=== PATIENT | male | born 1975 | race Caucasian/White ===

== ENCOUNTER 2018-05-30 13:30 | Emergency (ER) | payer MEDICAID, SELFPAY ==
[2018-05-30] VITALS (40 sets, daily range): BP systolic 102–137; BP diastolic 72–107; PULSE 70–101; RESP 9–65; TEMP 36.9–37; O2SAT 94–97
[2018-05-30 14:09] LABS: Abs Immature Grans 0.02 k/cumm (0.0-0.09); Absolute Basophil Count 0.01 k/cumm (0.0-0.2); Absolute Eosinophil Count 0.08 k/cumm (0.0-0.7); Absolute Lymphocyte Count 2.42 k/cumm (1.2-3.4); Absolute Monocyte Count 0.89 k/cumm (0.11-0.7); Absolute Neutrophil Count 6.55 k/cumm (1.2-6.7); Basophils % 0.1; Eosinophils % 0.8; HCT 42.9 % (40.0-50.0); HGB 14.9 g/dL (13.5-17.5); Immature Grans % 0.2; Lymphocytes % 24.3; Mean Corp. HGB Concentration 34.7 g/dL (32.0-36.0); Mean Corpuscular Volume 92.3 fL (80-95); Mean Platelet Volume 10.3 fL (8.0-11.0); Monocytes % 8.9; Neutrophils % 65.7; Platelet Count 197 x1000/uL (130-400); RBC 4.65 m/cumm (4.50-6.00); RBC Distribution Width 12.6 % (11.8-14.1); White Blood Cell Count 9.97 k/cumm (4.4-10.8)
--- NOTE | 2018-05-30 14:20 | DI.RAD_ITS ---
SYMPTOM/DIAGNOSIS: CHEST PAIN, R/O ACUTE DISEASE PA AND LATERAL CHEST: 05/30/18 The heart is normal in size. The lungs are clear. The mediastinal structures and pleura appear intact. CONCLUSION: Normal chest.
[2018-05-30 14:26] LABS: ALT 48 U/L (12-78); AST 25 U/L (15-37); Albumin 4.1 g/dL (3.4-5.0); Alkaline Phosphatase 74 U/L (46-116); Anion Gap 9.4 mmol/L (3-11); BUN 16 mg/dL (7-18); Bilirubin, Direct 0.12 mg/dL (0.00-0.20); Bilirubin, Total 0.5 mg/dL (0.2-1.0); CO2 28.6 mmol/L (21.0-32.0); CREATININE 0.99 mg/dL (0.70-1.30); Calcium 9.2 mg/dL (8.5-10.1); Chloride 101 mmol/L (98-107); Glucose 105 mg/dL (70-100); Lipase 89 U/L (73-393); Magnesium 1.9 mg/dL (1.8-2.4); Sodium 139 mmol/L (136-145); Total Protein 8.3 g/dL (6.4-8.2); Troponin I < 0.02 ng/mL (0.00-0.06)
--- NOTE | 2018-05-30 14:51 | DI.VRAD_ITS ---
EXAM: XR Chest, 2 Views CLINICAL HISTORY: 43 years old, male; Pain; Chest pain; Type not specified TECHNIQUE: Frontal and lateral views of the chest. COMPARISON: No relevant prior studies available. FINDINGS: The lung wolfe are clear bilaterally. No focal pulmonary consolidation is present. The cardiac silhouette is within normal limits. The costophrenic angles are sharp. The bony structures appear unremarkable. IMPRESSION: No evidence of acute cardiopulmonary disease. Dictated and Authenticated by: Tereso Salamanca MD. Ordering:MANASA MCDONOUGH MD
[2018-05-30] MEDS: FAMOTIDINE 20 MG/50 ML BAG 100 MG IVPB (15:03)
[2018-05-30] MEDS: Normal Saline 1,000 ML 1000 ML IV (15:03)
--- NOTE | 2018-05-30 18:16 | ED.GENADUL_ITS ---
Discharge Plan Disposition Patient Disposition: HOME Condition: Improving Discharge Details Chief Complaint: Chest Pain Clinical Impression: Abdominal pain, epigastric Primary Care Provider: Valencia Avina ED Provider: Libby Pleitez Home Meds and New Rx's Prescriptions: Continue pantoprazole 20 MG tablet,delayed release (DR/EC) 20 mg PO DAILY Qty: 90 RF: 3 pravastatin 20 MG tablet 20 mg PO DAILY Qty: 90 RF: 2 meclizine 25 MG tablet 25 - 50 mg PO DAILY PRNQty: 30 RF: 2 Citalopram Hydrobromide [Citalopram HBr] 40 MG tablet 40 mg PO DAILY Qty: 90 RF: 3 triamcinolone acetonide 15 GM cream 15 gm Topical BID PRNQty: 1 RF: 2 ibuprofen 600 MG tablet 600 mg PO Q6H PRN (Reason: Pain) Qty: 20 RF: 0 Discharge Instructions Instructions: Epigastric Pain (ED) Additional Instructions: Take your protonix regularly as directed. Avoid excessive motrin or other NSAID use. Call your primary care doctor to schedule follow-up appointment for reevaluation and for referral to GI or surgery for endoscopy if your symptoms persist or worsen. Return immediately to the emergency department any worsening or new concerning symptoms. Discharge Data Discharge Date/Time-TO BE ENTERED AT DEPARTURE: 05/30/18 19:02 Discharge Physician: Libby Pleitez Medical Decision Making 43-year-old male with history of GERD presents with epigastric pain for the past 3 days. Worse with eating. Denies chest pain, shortness breath, dizziness , nausea or vomiting. Vitals within normal limits. EKG notes a rate of 85, sinus, incomplete right bundle branch block, no acute ST elevation or depression, QTc 4 2, QRS 116. No old EKG to compare. Lungs clear to auscultation. Patient appears nontoxic in no acute distress. He had mild tenderness palpation in the epigastric region. He denies alcohol or drug use so doubt pancreatitis. He has no chest pain, shortness of breath, nausea, vomiting or dizziness and pain is worse with eating, so appears more consistent with GI etiology rather than cardiac. Considering patient's age, will do a cardiac workup, chest x-ray and give a dose of Pepcid and GI cocktail and reassess. 1700 --patient feels much better. Patient states he feels hungry and would like to drink and eat. Labs reviewed and unremarkable. White blood cell count 9.97. Hemoglobin 14.9. Troponin negative. Lipase 89. Chest x-ray negative. Second troponin done and pending. 1844 --second troponin negative. Patient states feels good and is requesting to go home. Discussed with patient and his symptoms could be GERD, gastritis, peptic ulcer disease, abdominal muscle wall strain. Patient was instructed to drink plenty of fluids, take his Protonix regularly, avoid excessive NSAID use. He is instructed to follow with his primary care doctor for reevaluation and for referral to surgery for endoscopy if symptoms persist or worsen. HPI General Mode of arrival: ambulatory . Date/Time Provider Initiated Documentation: 05/30/18 13:47 . Limitations to Documentation: no limitations . Information obtained by: patient . HPI Narrative: 43-year-old male with a history of GERD on Protonix who presents for epigastric pain for the past 3 days. States the pain awoke him from sleep and feels like a gas bubble. States the pain feels steady, pressure-like, in the epigastric region, without radiation, worse with eating and better with sitting up. States the pain is currently 7/10. He takes Protonix regularly for his GERD but has not taken it for the past 3 days. He denies fever, cough, shortness breath, dizziness, nausea, vomiting, recent travel, recent surgery or leg pain. He denies excessive or prolonged NSAID use. Past medical history: Anxiety, depression, GERD, hyperlipidemia, chronic back pain Surgical history: Hernia, vasectomy Social history: Quit tobacco, denies alcohol or drug use Medications: Celexa, meclizine, Protonix, Motrin as needed Allergies: None PCP: Dr. Avina Related Data Home Medications Medication Instructions Recorded Confirmed ibuprofen 600 mg PO Q6H PRN #20 tab 04/02/17 05/30/18 pantoprazole 20 mg PO DAILY #90 tab-cap 08/28/17 05/30/18 meclizine 25 - 50 mg PO DAILY PRN #30 tab-cap 09/08/17 05/30/18 pravastatin 20 mg PO DAILY #90 tab-cap 09/08/17 05/30/18 triamcinolone acetonide 15 gm TOPICAL BID PRN #1 script 01/28/18 05/30/18 Previous Rx's Medication Instructions Recorded ibuprofen 600 mg PO Q6H PRN #20 tab 04/02/17 pantoprazole 20 mg PO DAILY #90 tab-cap 08/28/17 pravastatin 20 mg PO DAILY #90 tab-cap 09/08/17 Allergies Allergy/AdvReac Type Severity Reaction Status Date / Time No Known Drug Allergies Allergy Unverified 05/30/18 13:38 General Stated Complaint: Chest Pain DARI: 3 Review of Systems Review of Systems All systems reviewed & are unremarkable except as noted in HPI and below Constitutional Denies chills, Denies excessive sweating, Denies fatigue, Denies fever(s), Denies weakness and Denies weight loss Eyes Reports system reviewed and no additional complaints, except as docu and Denies blurry vision ENT Denies vertigo, Denies dizziness, Denies otalgia, Denies nasal congestion, Denies sore throat and Denies throat swelling Cardiovascular Denies chest pain, Denies syncope, Denies rapid heart rate and Denies dyspnea Respiratory Denies dyspnea Gastrointestinal Reports abdominal pain (Epigastric), Denies diarrhea and Denies vomiting Genitourinary Denies hematuria, Denies dysuria and Denies flank pain Musculoskeletal Denies back pain and Denies joint swelling Integumentary/Breasts Denies lesions and Denies rash Neurologic Denies behavioral changes, Denies confusion, Denies vertigo, Denies dizziness, Denies syncope and Denies weakness Psychiatric Denies behavioral changes, Denies confusion and Denies depression Endocrine Denies excessive sweating and Denies fatigue Hematologic/Lymphatic Denies easy bruising and Denies lymphadenopathy Allergic/Immunologic Denies throat swelling PFSH Family History Father Diabetes Essential hypertension Mother Essential hypertension Hyperlipidemia Medical History Depression Fatty liver Heart burn Umbilical hernia Social History Smoking/Tobacco Use Status: Former Tobacco Use Surgical History Vasectomy repair of incarcerated umbilical hernia (04/16/17) Exam Const General: cooperative and healthy appearing Orientation: alert and awake HENMT Head: normal to inspection Ears: hearing grossly normal bilaterally and external ears normal General nose exam: external nose normal Face and sinus: normal facial exam Mouth: oral mucosae normal Teeth and gingiva: dentition normal Throat: posterior oropharynx normal Eyes General: appearance normal, both eyes and all related structures Eyelids: eyelids normal Pupils: PERRL EOM: EOM intact bilaterally Neck Neck: normal visual inspection Lymphatic: no lymphadenopathy noted Chest Chest: normal inspection of the chest Resp Effort & Inspection: normal respiratory effort and able to speak in complete sentences Auscultation: clear to auscultation bilaterally Cardio Rate: regular rate Rhythm: regular rhythm GI Inspection: normal to inspection Palpation: soft, not firm, no guarding, no hepatosplenomegaly, no masses and tender (Mild to moderate epigastric region) Auscultation: normal bowel sounds Back/Spine/Pelvis Back: no CVA tenderness Skin General skin exam: no rashes or lesions noted Neuro General: alert and awake Cognition: normal cognition Speech: speech normal Gait: normal gait Motor: muscle tone normal throughout Sensory Exam: no sensory deficits noted Extrem General: normal to inspection, full ROM and normal capillary refill Psych Appearance: grossly normal Mental Status: mental status grossly normal Speech and Movement: speech and movement normal Affect: normal affect Thought Process: normal Course Vital Signs Temperature 98.6 F 05/30/18 13:35 Pulse 73 05/30/18 13:35 Respiratory Rate 18 05/30/18 13:35 Blood Pressure 137/83 05/30/18 13:35 Pulse Oximetry 95 05/30/18 13:35 Temperature 98.6 F 05/30/18 13:35 Temperature Source Temporal Artery Scan 05/30/18 13:35 Pulse 70 05/30/18 17:31 Pulse 76 05/30/18 18:00 Respiratory Rate 23 05/30/18 18:00 Respiratory Effort 05/30/18 14:06 Respiratory Depth Normal 05/30/18 14:06 Respiratory Pattern Normal 05/30/18 14:06 Blood Pressure 113/81 05/30/18 17:31 Blood Pressure Mean 88 05/30/18 17:31 Pulse Oximetry 96 05/30/18 18:00 Oxygen Delivery Method Room Air 05/30/18 13:35 Oxygen Flow Rate 0 05/30/18 13:35 Pain Level 7 05/30/18 13:35 Lab/Test Results Lab/Test Results: Laboratory Tests Range/Units 05/30/18 05/30/18 14:00 14:00 WBC (4.4-10.8) k/cumm 9.97 RBC (4.50-6.00) m/cumm 4.65 Hgb (13.5-17.5) g/dL 14.9 Hct (40.0-50.0) % 42.9 MCV (80-95) fL 92.3 MCH (27.0-33.0) pg 32.0 MCHC (32.0-36.0) g/dL 34.7 RDW (11.8-14.1) % 12.6 Plt Count (130-400) x1000/uL 197 MPV (8.0-11.0) fL 10.3 Immature Gran % 0.2 Neutrophils % 65.7 Lymphocytes % 24.3 Monocytes % 8.9 Eosinophils % 0.8 Basophils % 0.1 Absolute Neutrophils (1.2-6.7) k/cumm 6.55 Absolute Lymphocytes (1.2-3.4) k/cumm 2.42 Absolute Monocytes (0.11-0.7) k/cumm 0.89 H Absolute Eosinophils (0.0-0.7) k/cumm 0.08 Absolute Basophils (0.0-0.2) k/cumm 0.01 Sodium (136-145) mmol/L 139 Potassium (3.5-5.1) mmol/L 4.0 Chloride (98-107) mmol/L 101 Carbon Dioxide (21.0-32.0) mmol/L 28.6 Anion Gap (3-11) mmol/L 9.4 BUN (7-18) mg/dL 16 Creatinine (0.70-1.30) mg/dL 0.99 Estimated GFR/1.73 m2 (mL/min/1.73m2) >= 60.00 Glucose (70-100) mg/dL 105 H Calcium (8.5-10.1) mg/dL 9.2 Magnesium (1.8-2.4) mg/dL 1.9 Total Bilirubin (0.2-1.0) mg/dL 0.5 Conjugated Bilirubin (0.00-0.20) mg/dL 0.12 AST (15-37) U/L 25 ALT (12-78) U/L 48 Alkaline Phosphatase (46-116) U/L 74 Troponin I (0.00-0.06) ng/mL < 0.02 Total Protein (6.4-8.2) g/dL 8.3 H Albumin (3.4-5.0) g/dL 4.1 Lipase (73-393) U/L 89
[2018-05-30 18:27] LABS: Troponin I < 0.02 ng/mL (0.00-0.06)
== END 2018-05-30 19:02 | disposition home or self-care (01) ==
PROVIDERS: Emergency Provider Physician Assistant; PCP Family Medicine
DX: R10.13 Epigastric pain (principal)
CPT/HCPCS: 36415; 80053; 80076; 83690; 93005; 96361; 96365; 99285; 71046; 83735; 84484; 85025; 93010

== ENCOUNTER 2018-06-01 15:46 | Emergency (ER) | payer MEDICAID, SELFPAY ==
[2018-06-01 15:53] VITALS: BP 130/86; PULSE 100; RESP 20; TEMP 37; O2SAT 95
--- NOTE | 2018-06-01 16:02 | DI.US_ITS ---
SYMPTOM/DIAGNOSIS: RUQ PAIN, TENDERNESS ABDOMINAL ULTRASOUND: 06/01 Hepatic parenchyma appears heterogeneous and echogenic consistent with hepatic steatosis. There is cholelithiasis with multiple small gallstones. No gallbladder wall thickening or pericholecystic fluid collection seen. Common hepatic duct is of normal diameter at 4 mm. Spleen is unremarkable in appearance. Pancreas appears intact as visualized. The kidneys appear normal except for an incidental 25 mm mid pole left renal cyst. Abdominal aorta and IVC are of normal diameter. CONCLUSION: Cholelithiasis, presumed hepatic steatosis.
--- NOTE | 2018-06-01 16:06 | W.ED.GENAD ---
Discharge Plan Disposition Patient Disposition: HOME Condition: Good Discharge Details Chief Complaint: Abd Prob Clinical Impression: Abdominal pain, RUQ Primary Care Provider: Valencia Avina ED Provider: Sen Contreras Home Meds and New Rx's Prescriptions: New ibuprofen [Motrin IB] 200 MG tablet 800 mg PO Q6H 5 Days Qty: 80 RF: 0 hydrocodone-acetaminophen [Lenora] 7.5-325 mg tablet 1 tab PO Q6H PRN (Reason: pain) Qty: 4 RF: 0 No Action pantoprazole 20 MG tablet,delayed release (DR/EC) 20 mg PO DAILY Qty: 90 RF: 3 pravastatin 20 MG tablet 20 mg PO DAILY Qty: 90 RF: 2 meclizine 25 MG tablet 25 - 50 mg PO DAILY PRNQty: 30 RF: 2 Citalopram Hydrobromide [Citalopram HBr] 40 MG tablet 40 mg PO DAILY Qty: 90 RF: 3 triamcinolone acetonide 15 GM cream 15 gm Topical BID PRNQty: 1 RF: 2 ibuprofen 600 MG tablet 600 mg PO Q6H PRN (Reason: Pain) Qty: 20 RF: 0 Discharge Instructions Instructions: Gallstones (ED) Additional Instructions: Please call Dr. Heller's office tomorrow morning at 8 AM. [phone] specifically state that you are in the ER, have multiple gallstones, and that both Dr. Heller and Dr. Contreras said that you are supposed to follow-up this week, particularly Friday afternoon. Please take your medications as directed. Please only take the Lenora as needed. Avoid any fatty foods, or meat products. if you notice any worsening of your symptoms, or any new symptoms such as vomiting, diarrhea, fever, chills, shortness of breath, chest pain, numbness, weakness, or fainting , please return immediately to the emergency department for reevaluation. Please follow up with your primary care provider as soon as possible for reassessment and reevaluation. As always, it was a pleasure participating in your medical care today. Referrals: Jaclyn Heller MD [ [facility] STAFF PHYSICIAN] - Medical Decision Making This is a 43-year-old male who presents for epigastric and right upper quadrant pain. He had a thorough workup performed 3 days ago with a negative x-ray, negative serial troponins, negative EKG and laboratory workup. His symptoms have not improved since then. He has not eaten much. His pain is sharp, achy, in nature with associated decreased appetite nausea but no vomiting. No red flags of blood in his stools. Physical exam demonstrates reproducible right upper quadrant tenderness, concerning for potential gallbladder or pancreatic pathology. We will get an ultrasound to rule out any acute process. I feel that this is unlikely to be cardiac in nature especially with his negative workup 72 hours ago. We will rehydrate, control his pain, treat for potential reflux as well. 5:15 PM Patient's laboratory workup has returned normal. AST, ALT, alk phos, bilirubin have all returned normal. The patient's pain is notably improved with Toradol. Ultrasound report demonstrates multiple stones, and per the assistant front end manager they were too numerous to count however there are no other acute abnormalities. No pericholecystic fluid, no gallbladder wall thickening, no ductal dilatation, and a negative sonographic Livingston sign. With normal laboratory workup, no acute findings and pain that is notably improved I do not feel any need for emergent cholecystectomy. I did contact Dr. Gutierrez who is the surgeon on-call, and discussed the case with her, she does feel that the patient can follow-up tomorrow with her in the clinic. I do think that this is reasonable. We discussed red flags which to return with the patient, as well as the appropriate diet, and ibuprofen for home use. I have extensively reviewed the treatment plan and discharge instructions with the patient. I have addressed all patient concerns at this time. The patient was made aware of what symptoms to monitor for that would warrant a return to the emergency department. Discussed the plan with the patient, they demonstrate verbal understanding and agreement with our assessment and plan at this time. HPI General Date/Time Provider Initiated Documentation: 06/01/18 15:54. HPI Narrative: This is a 43-year-old male with a past medical history of an umbilical hernia that was surgically repaired, some depression and mild anxiety, as well as some reflux who presents today for evaluation of epigastric and right upper quadrant pain. He states that he was here 3 days ago, at that time he had a negative chest x-ray, negative laboratory workup, no evidence of any cardiac etiology with a normal EKG and troponin x2. He was given Mylanta, however denies any improvement of his symptoms. He was discharged home with antacids, and recommendation for close follow-up for future endoscopy. It was felt that reflux was the main cause of his symptoms. Since then he states that his symptoms have not improved. His pain is sharp and achy in nature. It is in his epigastric region and radiates to his right upper quadrant. He does admit to a pressure-like sensation, that is present in this area. There is also some mild achiness in his chest. He denies any significant pleuritic chest pain, radiation to the arms or shoulders, cough, hemoptysis, vomiting, or diarrhea. He states that his appetite has been notably decreased, and has had some associated nausea but no vomiting. He denies any diarrhea, hematochezia, melena, acholic stool. Denies any other complaints at this time. He denies any previous cardiac history. He has no first-degree relatives with any cardiac history. He does admit to occasionally eating some spicy and citrus foods, however none recently. He has no other complaints at this time. He denies IV or illicit drug use, he does not currently smoke or drink alcohol per Related Data Home Medications Medication Instructions Recorded Confirmed ibuprofen 600 mg PO Q6H PRN #20 tab 04/02/17 05/30/18 pantoprazole 20 mg PO DAILY #90 tab-cap 08/28/17 05/30/18 meclizine 25 - 50 mg PO DAILY PRN #30 tab-cap 09/08/17 05/30/18 pravastatin 20 mg PO DAILY #90 tab-cap 09/08/17 05/30/18 triamcinolone acetonide 15 gm TOPICAL BID PRN #1 script 01/28/18 05/30/18 hydrocodone-acetaminophen [Lenora] 1 tab PO Q6H PRN #4 tab 06/01/18 ibuprofen [Motrin Ib] 800 mg PO Q6H 5 Days #80 tab 06/01/18 Previous Rx's Medication Instructions Recorded ibuprofen 600 mg PO Q6H PRN #20 tab 04/02/17 pantoprazole 20 mg PO DAILY #90 tab-cap 08/28/17 pravastatin 20 mg PO DAILY #90 tab-cap 09/08/17 hydrocodone-acetaminophen [Lenora] 1 tab PO Q6H PRN #4 tab 06/01/18 ibuprofen [Motrin Ib] 800 mg PO Q6H 5 Days #80 tab 06/01/18 Allergies Allergy/AdvReac Type Severity Reaction Status Date / Time No Known Drug Allergies Allergy Unverified 05/30/18 13:38 General Stated Complaint: Abd Prob DARI: 3 Review of Systems Review of Systems All systems reviewed & are unremarkable except as noted in HPI and below Exam Narrative Exam Narrative: 1.Const: Well-nourished, Well-developed, appearing stated age 2.Eyes: PERRL, no conjunctival injection, and symmetrical lids. 3.ENT: Atraumatic external nose and ears. dry MM. Neck: Symmetric, trachea midline, No thyromegaly. 4.CVS: +S1/S2, No murmurs or gallops. Peripheral pulses 2+ and equal in all extremities. Brisk capillary refill in all extremities. 5.RESP: Unlabored respiratory effort. Clear to auscultation bilaterally. No wheezes rales or rhonchi 6.GI: Soft,Nondistended, No hepatosplenomegaly. No guarding or rebound. Mild tenderness in the right upper quadrant in the epigastric region. No guarding or rebound. Questionable positive Livingston sign. No reproducible chest pain. No pain at McBurney's point. 7.MSK: Normocephalic/Atraumatic, Extremities w/o deformity or ttp No cyanosis or clubbing, Normal movement of all extremities 8.Skin: Warm, Dry. No rashes or lesions. No scleral icterus or jaundice 9.Neuro: caterer helper II-XII grossly intact. Sensation grossly intact, no focal neurologic deficits. 10.Psych: (AAO) x3. Appropriate mood and affect Course Vital Signs Temperature 37.0 C 06/01/18 15:53 Pulse 100 H 06/01/18 15:53 Respiratory Rate 20 06/01/18 15:53 Blood Pressure 130/86 06/01/18 15:53 Pulse Oximetry 95 06/01/18 15:53 Temperature 37.0 C 06/01/18 15:53 Temperature Source Temporal Artery Scan 06/01/18 15:53 Pulse 100 H 06/01/18 15:53 Respiratory Rate 20 06/01/18 15:53 Respiratory Effort 06/01/18 15:57 Blood Pressure 130/86 06/01/18 15:53 Blood Pressure Position Sitting 06/01/18 15:53 Pulse Oximetry 95 06/01/18 15:53 Oxygen Delivery Method Room Air 06/01/18 15:53 Oxygen Flow Rate 0 06/01/18 15:53 Pain Level 7 06/01/18 15:53
--- NOTE | 2018-06-01 16:12 | ED.GENADUL_ITS ---
Discharge Plan Disposition Patient Disposition: HOME Condition: Good Discharge Details Chief Complaint: Abd Prob Clinical Impression: Abdominal pain, RUQ Primary Care Provider: Valencia Avina ED Provider: Sen Contreras Home Meds and New Rx's Prescriptions: New ibuprofen [Motrin IB] 200 MG tablet 800 mg PO Q6H 5 Days Qty: 80 RF: 0 hydrocodone-acetaminophen [[place]] 7.5-325 mg tablet 1 tab PO Q6H PRN (Reason: pain) Qty: 4 RF: 0 No Action pantoprazole 20 MG tablet,delayed release (DR/EC) 20 mg PO DAILY Qty: 90 RF: 3 pravastatin 20 MG tablet 20 mg PO DAILY Qty: 90 RF: 2 meclizine 25 MG tablet 25 - 50 mg PO DAILY PRNQty: 30 RF: 2 Citalopram Hydrobromide [Citalopram HBr] 40 MG tablet 40 mg PO DAILY Qty: 90 RF: 3 triamcinolone acetonide 15 GM cream 15 gm Topical BID PRNQty: 1 RF: 2 ibuprofen 600 MG tablet 600 mg PO Q6H PRN (Reason: Pain) Qty: 20 RF: 0 Discharge Instructions Instructions: Gallstones (ED) Additional Instructions: Please call Dr. Heller's office tomorrow morning at 8 AM. [phone] specifically state that you are in the ER, have multiple gallstones, and that both Dr. Heller and Dr. Contreras said that you are supposed to follow-up this week, particularly Friday afternoon. Please take your medications as directed. Please only take the [place] as needed. Avoid any fatty foods, or meat products. if you notice any worsening of your symptoms, or any new symptoms such as vomiting, diarrhea, fever, chills, shortness of breath, chest pain, numbness, weakness, or fainting , please return immediately to the emergency department for reevaluation. Please follow up with your primary care provider as soon as possible for reassessment and reevaluation. As always, it was a pleasure participating in your medical care today. Referrals: Jaclyn Heller MD [ [facility] ST[facility]FF PHYSICIAN] - Medical Decision Making This is a 43-year-old male who presents for epigastric and right upper quadrant pain. He had a thorough workup performed 3 days ago with a negative x-ray, negative serial troponins, negative EKG and laboratory workup. His symptoms have not improved since then. He has not eaten much. His pain is sharp, achy, in nature with associated decreased appetite nausea but no vomiting. No red flags of blood in his stools. Physical exam demonstrates reproducible right upper quadrant tenderness, concerning for potential gallbladder or pancreatic pathology. We will get an ultrasound to rule out any acute process. I feel that this is unlikely to be cardiac in nature especially with his negative workup 72 hours ago. We will rehydrate, control his pain, treat for potential reflux as well. 5:15 PM Patient's laboratory workup has returned normal. AST, ALT, alk phos, bilirubin have all returned normal. The patient's pain is notably improved with Toradol. Ultrasound report demonstrates multiple stones, and per the fire sprinkler inspector they were too numerous to count however there are no other acute abnormalities. No pericholecystic fluid, no gallbladder wall thickening, no ductal dilatation , and a negative sonographic Livingston sign. With normal laboratory workup, no acute findings and pain that is notably improved I do not feel any need for emergent cholecystectomy. I did contact Dr. Gutierrez who is the surgeon on-call , and discussed the case with her, she does feel that the patient can follow-up tomorrow with her in the clinic. I do think that this is reasonable. We discussed red flags which to return with the patient, as well as the appropriate diet, and ibuprofen for home use. I have extensively reviewed the treatment plan and discharge instructions with the patient. I have addressed all patient concerns at this time. The patient was made aware of what symptoms to monitor for that would warrant a return to the emergency department. Discussed the plan with the patient, they demonstrate verbal understanding and agreement with our assessment and plan at this time. HPI General Date/Time Provider Initiated Documentation: 06/01/18 15:54 . HPI Narrative: This is a 43-year-old male with a past medical history of an umbilical hernia that was surgically repaired, some depression and mild anxiety, as well as some reflux who presents today for evaluation of epigastric and right upper quadrant pain. He states that he was here 3 days ago, at that time he had a negative chest x-ray, negative laboratory workup, no evidence of any cardiac etiology with a normal EKG and troponin x2. He was given Mylanta, however denies any improvement of his symptoms. He was discharged home with antacids, and recommendation for close follow-up for future endoscopy. It was felt that reflux was the main cause of his symptoms. Since then he states that his symptoms have not improved. His pain is sharp and achy in nature. It is in his epigastric region and radiates to his right upper quadrant. He does admit to a pressure-like sensation, that is present in this area. There is also some mild achiness in his chest. He denies any significant pleuritic chest pain, radiation to the arms or shoulders, cough, hemoptysis, vomiting, or diarrhea. He states that his appetite has been notably decreased, and has had some associated nausea but no vomiting. He denies any diarrhea, hematochezia, melena, acholic stool. Denies any other complaints at this time. He denies any previous cardiac history. He has no first-degree relatives with any cardiac history. He does admit to occasionally eating some spicy and citrus foods, however none recently. He has no other complaints at this time. He denies IV or illicit drug use, he does not currently smoke or drink alcohol per Related Data Home Medications Medication Instructions Recorded Confirmed ibuprofen 600 mg PO Q6H PRN #20 tab 04/02/17 05/30/18 pantoprazole 20 mg PO DAILY #90 tab-cap 08/28/17 05/30/18 meclizine 25 - 50 mg PO DAILY PRN #30 tab-cap 09/08/17 05/30/18 pravastatin 20 mg PO DAILY #90 tab-cap 09/08/17 05/30/18 triamcinolone acetonide 15 gm TOPICAL BID PRN #1 script 01/28/18 05/30/18 hydrocodone-acetaminophen [[place]] 1 tab PO Q6H PRN #4 tab 06/01/18 ibuprofen [Motrin Ib] 800 mg PO Q6H 5 Days #80 tab 06/01/18 Previous Rx's Medication Instructions Recorded ibuprofen 600 mg PO Q6H PRN #20 tab 04/02/17 pantoprazole 20 mg PO DAILY #90 tab-cap 08/28/17 pravastatin 20 mg PO DAILY #90 tab-cap 09/08/17 hydrocodone-acetaminophen [[place]] 1 tab PO Q6H PRN #4 tab 06/01/18 ibuprofen [Motrin Ib] 800 mg PO Q6H 5 Days #80 tab 06/01/18 Allergies Allergy/AdvReac Type Severity Reaction Status Date / Time No Known Drug Allergies Allergy Unverified 05/30/18 13:38 General Stated Complaint: Abd Prob DARI: 3 Review of Systems Review of Systems All systems reviewed & are unremarkable except as noted in HPI and below Exam Narrative Exam Narrative: 1.Const: Well-nourished, Well-developed, appearing stated age 2.Eyes: PERRL, no conjunctival injection, and symmetrical lids. 3.ENT: Atraumatic external nose and ears. dry MM. Neck: Symmetric, trachea midline, No thyromegaly. 4.CVS: +S1/S2, No murmurs or gallops. Peripheral pulses 2+ and equal in all extremities. Brisk capillary refill in all extremities. 5.RESP: Unlabored respiratory effort. Clear to auscultation bilaterally. No wheezes rales or rhonchi 6.GI: Soft,Nondistended, No hepatosplenomegaly. No guarding or rebound. Mild tenderness in the right upper quadrant in the epigastric region. No guarding or rebound. Questionable positive Livingston sign. No reproducible chest pain. No pain at McBurney's point. 7.MSK: Normocephalic/Atraumatic, Extremities w/o deformity or ttp No cyanosis or clubbing, Normal movement of all extremities 8.Skin: Warm, Dry. No rashes or lesions. No scleral icterus or jaundice 9.Neuro: manufacturing engineer paint II-XII grossly intact. Sensation grossly intact, no focal neurologic deficits. 10.Psych: (AAO) x3. Appropriate mood and affect Course Vital Signs Temperature 37.0 C 06/01/18 15:53 Pulse 100 H 06/01/18 15:53 Respiratory Rate 20 06/01/18 15:53 Blood Pressure 130/86 06/01/18 15:53 Pulse Oximetry 95 06/01/18 15:53 Temperature 37.0 C 06/01/18 15:53 Temperature Source Temporal Artery Scan 06/01/18 15:53 Pulse 100 H 06/01/18 15:53 Respiratory Rate 20 06/01/18 15:53 Respiratory Effort 06/01/18 15:57 Blood Pressure 130/86 06/01/18 15:53 Blood Pressure Position Sitting 06/01/18 15:53 Pulse Oximetry 95 06/01/18 15:53 Oxygen Delivery Method Room Air 06/01/18 15:53 Oxygen Flow Rate 0 06/01/18 15:53 Pain Level 7 06/01/18 15:53
[2018-06-01] MEDS: Ketorolac 30 MG/ML VIAL 15 MG IM (16:19)
[2018-06-01] MEDS: Ondansetron 4 MG/2 ML VIAL IVP (16:20)
[2018-06-01] MEDS: Normal Saline 1,000 ML 1000 ML IV (16:20)
[2018-06-01] MEDS: Pantoprazole 40 MG VIAL IVP (16:20)
[2018-06-01 16:26] LABS: Abs Immature Grans 0.01 k/cumm (0.0-0.09); Absolute Basophil Count 0.02 k/cumm (0.0-0.2); Absolute Eosinophil Count 0.06 k/cumm (0.0-0.7); Absolute Lymphocyte Count 2.46 k/cumm (1.2-3.4); Absolute Monocyte Count 1.03 k/cumm (0.11-0.7); Basophils % 0.2; Eosinophils % 0.5; HCT 42.9 % (40.0-50.0); Immature Grans % 0.1; Lymphocytes % 22.2; Mean Corpuscular Hemoglobin 32.3 pg (27.0-33.0); Mean Corpuscular Volume 92.3 fL (80-95); Mean Platelet Volume 10.5 fL (8.0-11.0); Monocytes % 9.3; Neutrophils % 67.7; Platelet Count 212 x1000/uL (130-400); RBC 4.65 m/cumm (4.50-6.00); RBC Distribution Width 12.9 % (11.8-14.1); White Blood Cell Count 11.06 k/cumm (4.4-10.8)
[2018-06-01 16:27] LABS: Absolute Neutrophil Count 7.49 k/cumm (1.2-6.7)
[2018-06-01 16:39] LABS: ALT 56 U/L (12-78); AST 24 U/L (15-37); Alkaline Phosphatase 82 U/L (46-116); Anion Gap 10.5 mmol/L (3-11); BUN 11 mg/dL (7-18); Bilirubin, Total 0.6 mg/dL (0.2-1.0); CO2 27.5 mmol/L (21.0-32.0); CREATININE 0.85 mg/dL (0.70-1.30); Calcium 9.1 mg/dL (8.5-10.1); Chloride 100 mmol/L (98-107); Glucose 103 mg/dL (70-100); Lipase 88 U/L (73-393); Potassium 3.8 mmol/L (3.5-5.1); Sodium 138 mmol/L (136-145); Total Protein 8.4 g/dL (6.4-8.2)
[2018-06-01 16:40] LABS: Troponin I < 0.02 ng/mL (0.00-0.06)
--- NOTE | 2018-06-01 17:12 | DI.VRAD_ITS ---
EXAM: US Abdomen Complete CLINICAL HISTORY: 43 years old, male; Pain; Abdominal pain; Acute TECHNIQUE: Real-time ultrasound of the abdomen (complete) with image documentation. COMPARISON: No relevant prior studies available. FINDINGS: Liver: The liver is echodense and poorly penetrated. Upper normal limits at 16.2 cm. Hepatopedal portal flow No intrahepatic bile duct dilation. Gallbladder: Distended gallbladder with multiple stones, none of the stones measure more than 1.5 cm. Gallbladder wall thickness is 2.4 mm which is normal. Negative Livingston Common bile duct: Unremarkable as visualized. No stones. No dilation. Pancreas: Partially obscured due to bowel gas Kidneys: 2.5 cm cortical cyst left mid renal pole. No stones. No hydronephrosis. Spleen: Unremarkable. No splenomegaly. Aorta: Unremarkable. No aneurysm. Inferior vena cava: Unremarkable. IMPRESSION: No acute findings. Distended gallbladder with stones but no wall thickening, pericholecystic fluid, Livingston's sign or biliary dilatation. Stable 2.5 cm simple left renal cortical cyst, as seen on CT of 04/02/17 Dictated and Authenticated by: Silke Mccarty MD. Ordering:YOSVANY MUNOZ MD
[2018-06-01] MEDS: MORPHine 10 MG/ML VIAL 4 MG IVP (17:25)
== END 2018-06-01 17:36 | disposition home or self-care (01) ==
PROVIDERS: Emergency Provider Student in an Organized Health Care Education/Training Program; PCP Family Medicine
DX: R93.2 Abnormal findings on diagnostic imaging of liver and biliary tract (principal); N28.1 Cyst of kidney, acquired
CPT/HCPCS: 36415; 80053; 83690; 96361; 96372; 96374; 96375; 99284; 76700; 84484; 85025; J1885; J2270; J2405

== ENCOUNTER 2018-06-03 13:56 | Observation (INO) | payer MEDICAID, SELFPAY ==
[2018-06-03] VITALS (15 sets, daily range): BP systolic 116–153; BP diastolic 71–89; PULSE 62–76; RESP 13–18; TEMP 36.6–36.9; O2SAT 94–97
--- NOTE | 2018-06-03 14:25 | ED.GENADUL_ITS ---
Discharge Plan Disposition Patient Disposition: [facility] INPATIENT Condition: Stable Discharge Details Chief Complaint: Abd Prob Clinical Impression: Biliary colic Reason For Visit: RECURRENT BILIARY COLIC Admit Date/Time: 06/03/18 15:29 Admit Provider: Roosevelt Gagnon Attending Provider: Rosoevelt Gagnon Primary Care Provider: Valencia Avina ED Provider: Libby Pleitez Discharge Data Discharge Date/Time-TO BE ENTERED AT DEPARTURE: 06/03/18 17:25 Medical Decision Making 43-year-old male with a history of GERD, anxiety, depression and recently diagnosed cholelithiasis 2 days ago who presents for persistent epigastric, right upper quadrant and left upper quadrant abdominal pain. Patient was seen here 2 days ago and had negative lab workup and an abdominal ultrasound which noted multiple gallstones. He had no signs of gallbladder wall thickening, pericholecystic fluid, negative Livingston sign and was referred to surgery. Patient states he has a follow-up appointment with surgery Friday morning at 9: 30 AM. Patient states he called surgery this morning due to persistent pain and was advised to come to the emergency department. As patient had ultrasound done 2 days ago, will hold on imaging at this time but repeat lab work. Patient last took [place] at 9:00 this morning. Will give a tab of 10 mg p.o. oxycodone. Will call surgery to discuss plan. Patient denies any chest pain or shortness of breath and states his pain has been stable and persistent in the epigastric region so I do not see any acute indication for cardiac workup at this time. 1430 --case discussed with Dr. Gagnon and he will come to the emergency department to evaluate patient. 1445 -- will take patient to the OR. Suspect possibly an obstructing gallstone. Would like 2 g of Cefotetan IV. HPI General Mode of arrival: ambulatory . Date/Time Provider Initiated Documentation: 06/03/18 13:59 . Limitations to Documentation: no limitations . Information obtained by: patient . HPI Narrative: Patient is a 43-year-old male who presents to the ER with complaint of constant sharp epigastric pain for the past week. Patient was seen here 4 days ago for chest epigastric pain and had negative workup and was discharged home. Ultrasound was not available at that time. Patient return to the ED 2 days ago and had negative lab workup and had an abdominal ultrasound which noted multiple gallstones but no evidence of acute cholecystitis. Patient was referred to follow-up with surgery whom he spoke with yesterday and has a follow-up appointment for Friday morning at 930. Patient has been drinking and eating Jell-O as recommended per surgery. Patient states he called surgery today due to persistent pain and was advised to come to the ER. Denies radiation of pain. Denies known fever, nausea, vomiting, chest pain, shortness of breath, urinary symptoms or diarrhea. Last bowel movement was 2 days ago. Past medical history: GERD, depression, anxiety, hyperlipidemia Surgical history: Umbilical hernia repair, vasectomy Social history: Former tobacco smoker. Denies alcohol or drugs. Medications: [place], Celexa, Protonix, pravastatin Allergies: None Related Data Home Medications Medication Instructions Recorded Confirmed pantoprazole 20 mg PO DAILY #90 tab-cap 08/28/17 06/03/18 meclizine 25 - 50 mg PO DAILY PRN #30 tab-cap 09/08/17 06/03/18 pravastatin 20 mg PO DAILY #90 tab-cap 09/08/17 06/03/18 triamcinolone acetonide 15 gm TOPICAL BID PRN #1 script 01/28/18 06/03/18 hydrocodone-acetaminophen [[place]] 1 tab PO Q6H PRN #4 tab 06/01/18 06/03/18 acetaminophen [Tylenol] 650 mg PO Q6H PRN PRN #30 tab 06/04/18 Previous Rx's Medication Instructions Recorded pantoprazole 20 mg PO DAILY #90 tab-cap 08/28/17 pravastatin 20 mg PO DAILY #90 tab-cap 09/08/17 hydrocodone-acetaminophen [[place]] 1 tab PO Q6H PRN #4 tab 06/01/18 acetaminophen [Tylenol] 650 mg PO Q6H PRN PRN #30 tab 06/04/18 Allergies Allergy/AdvReac Type Severity Reaction Status Date / Time No Known Drug Allergies Allergy Unverified 05/30/18 13:38 General Stated Complaint: Abd Prob DARI: 3 Review of Systems Review of Systems All systems reviewed & are unremarkable except as noted in HPI and below Constitutional Denies chills, Denies excessive sweating, Denies fatigue, Denies fever(s), Denies weakness and Denies weight loss Eyes Reports system reviewed and no additional complaints, except as docu and Denies blurry vision ENT Denies vertigo, Denies dizziness, Denies otalgia, Denies nasal congestion, Denies sore throat and Denies throat swelling Cardiovascular Denies chest pain, Denies syncope, Denies rapid heart rate and Denies dyspnea Respiratory Denies dyspnea Gastrointestinal Reports abdominal pain, Denies diarrhea, Denies nausea and Denies vomiting Genitourinary Denies hematuria, Denies dysuria and Denies flank pain Musculoskeletal Denies back pain and Denies joint swelling Integumentary/Breasts Denies lesions and Denies rash Neurologic Denies behavioral changes, Denies confusion, Denies vertigo, Denies dizziness, Denies syncope and Denies weakness Psychiatric Denies behavioral changes, Denies confusion and Denies depression Endocrine Denies excessive sweating and Denies fatigue Hematologic/Lymphatic Denies easy bruising and Denies lymphadenopathy Allergic/Immunologic Denies throat swelling Exam Const General: cooperative and healthy appearing Orientation: alert and awake HENMT Head: normal to inspection Ears: hearing grossly normal bilaterally and external ears normal General nose exam: external nose normal Face and sinus: normal facial exam Mouth: oral mucosae normal Eyes General: appearance normal, both eyes and all related structures Eyelids: eyelids normal EOM: EOM intact bilaterally Neck Neck: normal visual inspection Lymphatic: no lymphadenopathy noted Chest Chest: normal inspection of the chest Resp Effort & Inspection: normal respiratory effort and able to speak in complete sentences Auscultation: clear to auscultation bilaterally Cardio Rate: regular rate Rhythm: regular rhythm GI Inspection: normal to inspection Palpation: soft, not firm, no guarding, no hepatosplenomegaly, no masses and tender (Moderate tenderness to palpation in the epigastric, right upper quadrant and left upper quadrant) Auscultation: normal bowel sounds Skin General skin exam: no rashes or lesions noted Neuro General: alert and awake Cognition: normal cognition Speech: speech normal Gait: normal gait Motor: muscle tone normal throughout Extrem General: normal to inspection and full ROM Psych Appearance: grossly normal Mental Status: mental status grossly normal Speech and Movement: speech and movement normal Affect: normal affect Thought Process: normal Course Vital Signs Temperature 97.9 F 06/03/18 14:01 Pulse 76 06/03/18 14:01 Respiratory Rate 16 06/03/18 14:01 Blood Pressure 127/85 06/03/18 14:01 Pulse Oximetry 96 06/03/18 14:01 Temperature 97.9 F 06/03/18 14:01 Temperature Source Temporal Artery Scan 06/03/18 14:01 Pulse 76 06/03/18 14:01 Respiratory Rate 16 06/03/18 14:01 Respiratory Effort 06/03/18 14:05 Blood Pressure 127/85 06/03/18 14:01 Blood Pressure Position Sitting 06/03/18 14:01 Pulse Oximetry 96 06/03/18 14:01 Oxygen Delivery Method Room Air 06/03/18 14:01 Oxygen Flow Rate 0 06/03/18 14:01 Pain Level 8 06/03/18 14:01
[2018-06-03 14:26] LABS: Abs Immature Grans 0.01 k/cumm (0.0-0.09); Absolute Basophil Count 0.01 k/cumm (0.0-0.2); Absolute Eosinophil Count 0.07 k/cumm (0.0-0.7); Absolute Lymphocyte Count 2.66 k/cumm (1.2-3.4); Absolute Neutrophil Count 4.36 k/cumm (1.2-6.7); Basophils % 0.1; Eosinophils % 0.9; HCT 40.7 % (40.0-50.0); Immature Grans % 0.1; Lymphocytes % 33.6; Mean Corp. HGB Concentration 34.4 g/dL (32.0-36.0); Mean Corpuscular Hemoglobin 32.5 pg (27.0-33.0); Mean Corpuscular Volume 94.4 fL (80-95); Mean Platelet Volume 10.1 fL (8.0-11.0); Monocytes % 10.1; Neutrophils % 55.2; Platelet Count 207 x1000/uL (130-400); RBC 4.31 m/cumm (4.50-6.00); RBC Distribution Width 12.5 % (11.8-14.1); White Blood Cell Count 7.91 k/cumm (4.4-10.8)
[2018-06-03] MEDS: oxyCODONE 5 MG TAB 10 MG PO (14:32)
[2018-06-03 14:49] LABS: ALT 54 U/L (12-78); AST 25 U/L (15-37); Albumin 3.6 g/dL (3.4-5.0); Alkaline Phosphatase 77 U/L (46-116); BUN 11 mg/dL (7-18); Bilirubin, Total 0.4 mg/dL (0.2-1.0); CREATININE 0.81 mg/dL (0.70-1.30); Calcium 8.9 mg/dL (8.5-10.1); Chloride 101 mmol/L (98-107); Glucose 77 mg/dL (70-100); Lipase 88 U/L (73-393); Potassium 3.8 mmol/L (3.5-5.1); Sodium 141 mmol/L (136-145)
--- NOTE | 2018-06-03 15:10 | W.PM.HP.N ---
Date of service: 06/03/18 Time of Service: 15:11 Assessment and Plan (1) Recurrent biliary colic: Current visit: Yes Status: Acute 43-year-old male with persistent right upper quadrant?epigastric pain. Given ultrasound findings along with physical examination believe this to be symptomatic biliary colic. No evidence of choledocholithiasis. Recommended laparoscopic cholecystectomy, possible open cholecystectomy. I reviewed the procedure with him, and discussed the risks of surgery. All his questions were answered to his satisfaction. No guarantees were made or promises given. He is consented for laparoscopic cholecystectomy History of Present Illness Chief Complaint: Right upper quadrant abdominal pain Narrative: 43-year-old gentleman presenting to the emergency room for persistent right upper quadrant abdominal pain. This pain started about a week ago fairly sudden in onset progressively getting worse with periods of intermittent improvement. He has associated nausea but denies any vomiting. He has been seen in the emergency room 3 times including this most recent visit. An ultrasound performed yesterday showed multiple stones in the gallbladder, but no pericholecystic fluid or gallbladder wall thickening was noted. His laboratory studies been normal. Surgery was consulted to evaluate. Review of Systems Review of Systems All systems reviewed & are unremarkable except as noted in HPI and below Constitutional Reports anorexia, Reports body ache(s), Denies chills, Reports difficulty sleeping, Denies fever(s), Reports malaise and Reports poor appetite Cardiovascular Denies chest pain at rest, Denies syncope, Denies irregular heart rhythm, Denies lightheadedness, Denies radiating jaw, neck or arm pain and Denies dyspnea Respiratory Denies chest congestion, Denies cough, Denies dyspnea and Denies wheezing Gastrointestinal Reports abdominal pain, Denies melena, Denies hematochezia, Reports change in stool character (Acholic stool), Reports cramping, Reports loose stools, Reports nausea and Denies vomiting Neurologic Denies syncope Allergic/Immunologic Denies wheezing Meds Home Medications Medication Instructions Recorded Confirmed Type pantoprazole 20 mg PO DAILY #90 tab-cap 08/28/17 06/03/18 Rx meclizine 25 - 50 mg PO DAILY PRN #30 tab-cap 09/08/17 06/03/18 History pravastatin 20 mg PO DAILY #90 tab-cap 09/08/17 06/03/18 Rx Citalopram Hydrobromide 40 mg PO DAILY #90 tab-cap 01/28/18 06/03/18 Clinic [Citalopram HBr] triamcinolone acetonide 15 gm TOPICAL BID PRN #1 script 01/28/18 06/03/18 History hydrocodone-acetaminophen [[place]] 1 tab PO Q6H PRN #4 tab 06/01/18 06/03/18 Rx ibuprofen [Motrin Ib] 800 mg PO Q6H 5 Days #80 tab 06/01/18 06/03/18 Rx Allergies Allergy/AdvReac Type Severity Reaction Status Date / Time No Known Drug Allergies Allergy Unverified 05/30/18 13:38 Exam Const General: cooperative, well developed, well groomed and in distress mild Nutritional Appearance: average body habitus and well nourished Orientation: alert, awake and oriented x3 HENMT Head: normal to inspection, normocephalic and atraumatic Ears: hearing grossly normal bilaterally Face and sinus: normal facial exam Throat: other (Malampati class II) Eyes General: appearance normal, both eyes and all related structures Sclera: sclerae normal Pupils: PERRL EOM: EOM intact bilaterally Neck Neck: normal visual inspection, trachea midline and supple Resp Effort & Inspection: normal respiratory effort, no audible wheezes and not labored Cardio Jugular venous pressure: no JVD Rate: regular rate Rhythm: regular rhythm GI Inspection: non-distended Palpation: soft and tender in the epigastrum, in the RUQ and Livingston's sign positive (positive) Rectal Exam: deferred Skin General skin exam: no rashes or lesions noted Neuro General: moves all extremities, no focal motor deficits and CN's II-XI intact bilaterally Results Imaging Abdominal ultrasound report/results: report reviewed Imaging Studies: Admission Date: 06/01/18 : 1975 Age: 43 Exam(s) a US:US abdomen SYMPTOM/DIAGNOSIS: RUQ PAIN, TENDERNESS ABDOMINAL ULTRASOUND: 06/01 Hepatic parenchyma appears heterogeneous and echogenic consistent with hepatic steatosis. There is cholelithiasis with multiple small gallstones. No gallbladder wall thickening or pericholecystic fluid collection seen. Common hepatic duct is of normal diameter at 4 mm. Spleen is unremarkable in appearance. Pancreas appears intact as visualized. The kidneys appear normal except for an incidental 25 mm mid pole left renal cyst. Abdominal aorta and IVC are of normal diameter. CONCLUSION: Cholelithiasis, presumed hepatic steatosis. Labs : 06/03/18 14:20 06/03/18 14:20 Laboratory Results - last 24 hr 06/03/18 06/03/18 14:20 14:20 WBC 7.91 RBC 4.31 L Hgb 14.0 Hct 40.7 MCV 94.4 MCH 32.5 MCHC 34.4 RDW 12.5 Plt Count 207 MPV 10.1 Immature Gran % 0.1 Neutrophils % 55.2 Lymphocytes % 33.6 Monocytes % 10.1 Eosinophils % 0.9 Basophils % 0.1 Absolute Neutrophils 4.36 Absolute Lymphocytes 2.66 Absolute Monocytes 0.80 H Absolute Eosinophils 0.07 Absolute Basophils 0.01 Sodium 141 Potassium 3.8 Chloride 101 Carbon Dioxide 31.0 Anion Gap 9.0 BUN 11 Creatinine 0.81 Estimated GFR/1.73 m2 >= 60.00 Glucose 77 Calcium 8.9 Total Bilirubin 0.4 AST 25 ALT 54 Alkaline Phosphatase 77 Total Protein 8.0 Albumin 3.6 Lipase 88
[2018-06-03] MEDS: Normal Saline 1,000 ML 1000 ML IV (15:43)
[2018-06-03] MEDS: HYDROmorphone 2 MG/ML VIAL 0.5 MG IVP ×2 (16:30→21:44)
[2018-06-03] MEDS: Lactated Ringers 1,000 ML 125 ML IV ×2 (17:32→20:30)
[2018-06-03] MEDS: Cellulose,Oxidized 4X8 1 PACKET MC ×2 (18:37)
--- NOTE | 2018-06-03 18:45 | GB_PTH ---
PATIENT: Huber Masters II LOC: U#:[id number] AGE/SX: 43/M ROOM: MS.205 RE06/03/[address]: Roosevelt Gagnon DO : 1975 BED: A DIS: 06/04/2018 SPEC #: [id number] RECD: 06/04/18 12:35 STATUS: JULIANA REQ #: [id number] AMIRA: 06/03/18 18:[address]: Roosevelt Gagnon DEPT: Surgical Specimen RECD BY: Alana Paez ENTERED: 06/04/18 12:35 SP TYPE: GB OTHR DR: Valencia Avina MD Tissues: 1 - GALLBLADDER Procedures: GROSS AND MICRO LEVEL 3 Comments: [id number]
--- NOTE | 2018-06-03 19:10 | W.PM.OP ---
Date of service: 06/03/18 Time of Service: 19:10 Operative Note DATE OF PROCEDURE: 06/03/18 PRE-OP DIAGNOSIS: Biliary colic POST-OP DIAGNOSIS: other (Acute cholecystitis on Chronic Cholecystitis with cholelithiasis) PROCEDURE: Laparoscopic Cholecystectomy SURGEON: Roosevelt Gagnon BIOMED TECH: Aicha Diego ANESTHESIA: GETA (Chrissy Ann, TAM ASA 2 Mallampati class II) and local (1% lidocaine and 0.5% marcaine with epinephrine) ESTIMATED BLOOD LOSS: 10 PATHOLOGY: other (Gallbladder) COMPLICATIONS: None Patient was transported to: PACU Patient's condition: stable Indications: 43-year-old male with persistent right upper quadrant?epigastric pain. Given ultrasound findings along with physical examination believe this to be symptomatic biliary colic. No evidence of choledocholithiasis. Recommended laparoscopic cholecystectomy, possible open cholecystectomy. I reviewed the procedure with him, and discussed the risks of surgery. All his questions were answered to his satisfaction. No guarantees were made or promises given. He is consented for laparoscopic cholecystectomy Findings: Gallbladder identified in the right upper quadrant some to be grossly dilated and discolored consistent with chronic cholecystitis. He was subsequently removed laparoscopically. Procedure Description: The patient was brought to the pre-anesthesia staging area where [her] name and identification were confirmed. The patient was then brought to the operating room, and placed supine on the table. All bony prominence were padded. The patient received pre-operative antibiotics, cefotetan 2 gms. An appropriate time out was performed addressing the patient's: identification, allergies, medications, antibiotics, blood bank, metal, and fire risks. An endotracheal tube was placed by the ALLERGIST/MD, and sedation was titrated for effect. Once adequate sedation was achieved, the abdomen was prepped with chloroprep, and blocked draped in the standard sterile fashion. I began by making a 4mm linear, transverse, [supraumbilical] incision, blunt dissection was carried down to the linea alba which was grasped and elevated. A veress needle was then inserted into the abdomen, with its positioning checked by the saline drop test. The abdomen was then inflated to [15mmHg] without apparent incident. A 5mm trocar was then inserted into the abdomen, through the incision, under direct visualization. The area under the veress needle, and trocar insertion was inspected, and no there was no apparent injury. The upper abdomen was then inspected 180 degrees. The Gallbladder was identified in the right upper quadrant; it was noted to be distended and discolored consistent with chronic cholecystitis. The liver appeared normal, and no other acute pathology was identified. I then placed the remainder of my trocars under direct visualization. A 12 mm trocar was placed subxiphoid in the midline. Two 5mm trocars were placed in the RUQ, two centimeters subcostal. One was placed at the anterior axillary line, and the other was placed at the mid-clavicular line. The gallbladder was then grasped by the fundus which was elevated up over the dome of theliver. The patient was placed in reverse trendelenburg with left side down. The infundibulum was then exposed; subsequently, manipulated caudad, and laterally. This exposed the triangle of Calot. The peritoneum overlying the cystic duct, and artery was then stripped from proximal from the gallbladder to distal exposing the cystic duct and artery. These were then circumferentially dissected which exposed the critial view of the cystic duct, cystic artery, with liver behind. The cystic duct and artery were then clipped with to clips distal to the gallbladder, one clip proximal. The cystic duct and cystic artery were then divided between the proximal and distal clips. The gallbladder was then excised from the gallbladder fossa of the liver in the standard antegrade fashion. Once, the gallbladder was from the fossa, it was placed in a endocatch bag and removed from the abdomen. The right upper quadrant was then irrigated with 2 liters saline to the irrigant was clear. Hemostasis was obtained with cautery, and surgicel was used to re-enforce hemostasis in the fossa]. The abdomen was then desufflated, and the trocars removed under direct visualization. The 12mm trocar fascia was closed with a 0 vicryl suture in a figure of eight fashion. All skin inscisions were closed with 4-0 vicryl in a subcuticular fashion. Local was infiltrated around all the incsions. All counts were reported as correct times two. The patient was extubated in the OR, and brought to the post ansthesia care unit in good condition.
--- NOTE | 2018-06-03 19:13 | ROE_ITS ---
Date of service: 06/03/18 Time of Service: 19:10 Operative Note DATE OF PROCEDURE: 06/03/18 PRE-OP DIAGNOSIS: Biliary colic POST-OP DIAGNOSIS: other (Acute cholecystitis on Chronic Cholecystitis with cholelithiasis) PROCEDURE: Laparoscopic Cholecystectomy SURGEON: Roosevelt Gagnon STACKER STRAIGHTENER: Aicha Diego ANESTHESIA: GETA (Chrissy Ann, TAM ASA 2 Mallampati class II) and local (1% lidocaine and 0.5% marcaine with epinephrine) ESTIMATED BLOOD LOSS: 10 PATHOLOGY: other (Gallbladder) COMPLICATIONS: None Patient was transported to: PACU Patient's condition: stable Indications: 43-year-old male with persistent right upper quadrant?epigastric pain. Given ultrasound findings along with physical examination believe this to be symptomatic biliary colic. No evidence of choledocholithiasis. Recommended laparoscopic cholecystectomy, possible open cholecystectomy. I reviewed the procedure with him, and discussed the risks of surgery. All his questions were answered to his satisfaction. No guarantees were made or promises given. He is consented for laparoscopic cholecystectomy Findings: Gallbladder identified in the right upper quadrant some to be grossly dilated and discolored consistent with chronic cholecystitis. He was subsequently removed laparoscopically. Procedure Description: The patient was brought to the pre-anesthesia staging area where [her] name and identification were confirmed. The patient was then brought to the operating room, and placed supine on the table. All bony prominence were padded. The patient received pre-operative antibiotics, cefotetan 2 gms. An appropriate time out was performed addressing the patient's: identification, allergies, medications, antibiotics, blood bank, metal, and fire risks. An endotracheal tube was placed by the CHIEF STATION ENGINEER, and sedation was titrated for effect. Once adequate sedation was achieved, the abdomen was prepped with chloroprep, and blocked draped in the standard sterile fashion. I began by making a 4mm linear, transverse, [supraumbilical] incision, blunt dissection was carried down to the linea alba which was grasped and elevated. A veress needle was then inserted into the abdomen, with its positioning checked by the saline drop test. The abdomen was then inflated to [15mmHg] without apparent incident. A 5mm trocar was then inserted into the abdomen, through the incision, under direct visualization. The area under the veress needle, and trocar insertion was inspected, and no there was no apparent injury. The upper abdomen was then inspected 180 degrees. The Gallbladder was identified in the right upper quadrant; it was noted to be distended and discolored consistent with chronic cholecystitis. The liver appeared normal, and no other acute pathology was identified. I then placed the remainder of my trocars under direct visualization. A 12 mm trocar was placed subxiphoid in the midline. Two 5mm trocars were placed in the RUQ, two centimeters subcostal. One was placed at the anterior axillary line, and the other was placed at the mid-clavicular line. The gallbladder was then grasped by the fundus which was elevated up over the dome of theliver. The patient was placed in reverse trendelenburg with left side down. The infundibulum was then exposed; subsequently, manipulated caudad, and laterally. This exposed the triangle of Calot. The peritoneum overlying the cystic duct, and artery was then stripped from proximal from the gallbladder to distal exposing the cystic duct and artery. These were then circumferentially dissected which exposed the critial view of the cystic duct, cystic artery, with liver behind. The cystic duct and artery were then clipped with to clips distal to the gallbladder, one clip proximal. The cystic duct and cystic artery were then divided between the proximal and distal clips. The gallbladder was then excised from the gallbladder fossa of the liver in the standard antegrade fashion. Once, the gallbladder was from the fossa , it was placed in a endocatch bag and removed from the abdomen. The right upper quadrant was then irrigated with 2 liters saline to the irrigant was clear. Hemostasis was obtained with cautery, and surgicel was used to re- enforce hemostasis in the fossa]. The abdomen was then desufflated, and the trocars removed under direct visualization. The 12mm trocar fascia was closed with a 0 vicryl suture in a figure of eight fashion. All skin inscisions were closed with 4-0 vicryl in a subcuticular fashion. Local was infiltrated around all the incsions. All counts were reported as correct times two. The patient was extubated in the OR , and brought to the post ansthesia care unit in good condition.
[2018-06-03] MEDS: fentaNYL 100 MCG/2 ML VIAL IVP (19:31)
[2018-06-03] MEDS: ACETAMINOPHEN 1,000 MG/100 ML BTL 400 MG IVPB (20:43)
[2018-06-03] MEDS: Ketorolac 30 MG/ML VIAL IVP (20:43)
[2018-06-04 01:07] VITALS: BP 109/65; PULSE 72; RESP 17; TEMP 36.1; O2SAT 96
[2018-06-04] MEDS: Ketorolac 30 MG/ML VIAL IVP (02:15)
[2018-06-04] MEDS: Lactated Ringers 1,000 ML 125 ML IV (04:03)
[2018-06-04 04:04] VITALS: BP 101/56; PULSE 60; RESP 18; TEMP 36.6; O2SAT 96
[2018-06-04] MEDS: ACETAMINOPHEN 1,000 MG/100 ML BTL 400 MG IVPB (04:04)
[2018-06-04] MEDS: Normal Saline Flush 10 ML SYR IVP (06:43)
[2018-06-04] MEDS: HYDROmorphone 2 MG/ML VIAL 0.5 MG IVP (06:43)
[2018-06-04 06:58] LABS: Abs Immature Grans 0.01 k/cumm (0.0-0.09); Absolute Lymphocyte Count 0.74 k/cumm (1.2-3.4); Absolute Monocyte Count 0.45 k/cumm (0.11-0.7); Absolute Neutrophil Count 7.89 k/cumm (1.2-6.7); HCT 38.8 % (40.0-50.0); HGB 12.9 g/dL (13.5-17.5); Immature Grans % 0.1; Lymphocytes % 8.1; Mean Corp. HGB Concentration 33.2 g/dL (32.0-36.0); Mean Corpuscular Hemoglobin 31.5 pg (27.0-33.0); Mean Corpuscular Volume 94.9 fL (80-95); Mean Platelet Volume 10.6 fL (8.0-11.0); Neutrophils % 86.8; Platelet Count 214 x1000/uL (130-400); RBC 4.09 m/cumm (4.50-6.00); RBC Distribution Width 12.4 % (11.8-14.1); White Blood Cell Count 9.09 k/cumm (4.4-10.8)
[2018-06-04 07:03] LABS: ALT 135 U/L (12-78); AST 97 U/L (15-37); Albumin 3.1 g/dL (3.4-5.0); Alkaline Phosphatase 74 U/L (46-116); Anion Gap 6.9 mmol/L (3-11); BUN 9 mg/dL (7-18); Bilirubin, Total 0.3 mg/dL (0.2-1.0); CO2 30.1 mmol/L (21.0-32.0); CREATININE 0.76 mg/dL (0.70-1.30); Calcium 8.8 mg/dL (8.5-10.1); Chloride 103 mmol/L (98-107); Glucose 138 mg/dL (70-100); Potassium 4.3 mmol/L (3.5-5.1); Sodium 140 mmol/L (136-145); Total Protein 7.2 g/dL (6.4-8.2)
[2018-06-04 07:19] VITALS: BP 110/67; PULSE 57; RESP 18; TEMP 36; O2SAT 97
--- NOTE | 2018-06-04 07:28 | W.PM.PROGNOT ---
Assessment and Plan (1) Recurrent biliary colic: Current visit: Yes Status: Acute A\\ POD #1 s/p Lap. Nickie P\\ 1. Diet: advance diet to regular 2. Ambulation: up and moving tid 3. O2: needs to be weaned off the O2 4. Disposition: Home later today if tolerating a diet Subjective Interval history since last seen: Huber is doing well. His pain is controlled. He is passing flatus. He is tolerating clear liquids. Still on O2. Exam Const General: comfortable Resp Effort & Inspection: normal respiratory effort Auscultation: clear to auscultation bilaterally Cardio Rate: regular rate Rhythm: regular rhythm Heart Sounds: no gallops, no murmurs and no rubs GI Inspection: incision (c/d/i) Palpation: soft and tender (mild tenderness around the incisions) Objective Objective Clinical Data: Abnormal lab results 06/03/18 06/04/18 06/04/18 Range/Units 14:20 06:20 06:20 RBC 4.31 L 4.09 L (4.50-6.00) m/cumm Hgb 12.9 L (13.5-17.5) g/dL Hct 38.8 L (40.0-50.0) % Absolute Neutrophils 7.89 H (1.2-6.7) k/cumm Absolute Lymphocytes 0.74 L (1.2-3.4) k/cumm Absolute Monocytes 0.80 H (0.11-0.7) k/cumm Glucose 138 H (70-100) mg/dL AST 97 H (15-37) U/L ALT 135 H (12-78) U/L Albumin 3.1 L (3.4-5.0) g/dL Vital Signs Temperature 97.9 F 06/04/18 04:04 Temperature Source Temporal Artery Scan 06/04/18 04:04 Pulse 60 06/04/18 04:04 Pulse Rhythm Regular 06/03/18 20:01 Respiratory Rate 18 06/04/18 04:04 Respiratory Effort Non-Labored 06/03/18 20:01 Respiratory Depth Normal 06/03/18 20:01 Respiratory Pattern Normal 06/03/18 20:01 Blood Pressure 101/56 L 06/04/18 04:04 Blood Pressure Position Sitting 06/03/18 14:01 Pulse Oximetry 96 06/04/18 04:04 Respiratory End-tidal CO2 43 06/03/18 19:24 Oxygen Delivery Method Nasal Cannula 06/04/18 04:04 Oxygen Flow Rate 2 06/04/18 04:04 Pain Level 5 06/04/18 06:43 Intake & Output 06/03/18 06/03/18 06/04/18 11:59 23:59 11:59 Intake Total 2350 / 2350 1350 / 1350 Output Total 700 / 700 300 / 300 Balance 1650 / 1650 1050 / 1050 Weight 191 lb 2.252 oz Intake: IV 2100 / 2100 1100 / 1100 Oral 250 / 250 250 / 250 Output: Urine 700 / 700 300 / 300 Other: Urine Color Pale Yellow Yellow Urine Appearance Clear Clear Urine Odor Normal Normal Comment voided in toilet Emesis Description None Voiding Methods Toilet Urinal Laboratory Results WBC 9.09 k/cumm (4.4-10.8) 06/04/18 06:20 RBC 4.09 m/cumm (4.50-6.00) L 06/04/18 06:20 Hgb 12.9 g/dL (13.5-17.5) L 06/04/18 06:20 Hct 38.8 % (40.0-50.0) L 06/04/18 06:20 MCV 94.9 fL (80-95) 06/04/18 06:20 MCH 31.5 pg (27.0-33.0) 06/04/18 06:20 MCHC 33.2 g/dL (32.0-36.0) 06/04/18 06:20 RDW 12.4 % (11.8-14.1) 06/04/18 06:20 Plt Count 214 x1000/uL (130-400) 06/04/18 06:20 MPV 10.6 fL (8.0-11.0) 06/04/18 06:20 Immature Gran % 0.1 06/04/18 06:20 Neutrophils % 86.8 06/04/18 06:20 Lymphocytes % 8.1 06/04/18 06:20 Monocytes % 5.0 06/04/18 06:20 Eosinophils % 0.0 06/04/18 06:20 Basophils % 0.0 06/04/18 06:20 Absolute Neutrophils 7.89 k/cumm (1.2-6.7) H 06/04/18 06:20 Absolute Lymphocytes 0.74 k/cumm (1.2-3.4) L 06/04/18 06:20 Absolute Monocytes 0.45 k/cumm (0.11-0.7) 06/04/18 06:20 Absolute Eosinophils 0.00 k/cumm (0.0-0.7) 06/04/18 06:20 Absolute Basophils 0.00 k/cumm (0.0-0.2) 06/04/18 06:20 Sodium 140 mmol/L (136-145) 06/04/18 06:20 Potassium 4.3 mmol/L (3.5-5.1) 06/04/18 06:20 Chloride 103 mmol/L (98-107) 06/04/18 06:20 Carbon Dioxide 30.1 mmol/L (21.0-32.0) 06/04/18 06:20 Anion Gap 6.9 mmol/L (3-11) 06/04/18 06:20 BUN 9 mg/dL (7-18) 06/04/18 06:20 Creatinine 0.76 mg/dL (0.70-1.30) 06/04/18 06:20 Estimated GFR/1.73 m2 >= 60.00 (mL/min/1.73m2) 06/04/18 06:20 Glucose 138 mg/dL (70-100) H 06/04/18 06:20 Calcium 8.8 mg/dL (8.5-10.1) 06/04/18 06:20 Total Bilirubin 0.3 mg/dL (0.2-1.0) 06/04/18 06:20 AST 97 U/L (15-37) H 06/04/18 06:20 ALT 135 U/L (12-78) H 06/04/18 06:20 Alkaline Phosphatase 74 U/L (46-116) 06/04/18 06:20 Total Protein 7.2 g/dL (6.4-8.2) 06/04/18 06:20 Albumin 3.1 g/dL (3.4-5.0) L 06/04/18 06:20 Lipase 88 U/L (73-393) 06/03/18 14:20
[2018-06-04] MEDS: Ibuprofen 600 MG TAB PO ×2 (08:19→13:51)
--- NOTE | 2018-06-04 08:38 | PDOC.CMIN ---
- If Service Date Differs Date of service: 06/04/18 Time of Service: 08:38 Care Management Initial Assess REASON FOR HOSPITALIZATION:: Recurrent Biliary Colic - Lap Cholecystectomy PAST MEDICAL HISTORY/PAST SURGICAL HISTORY:: Recurrent Biliary Colic, ADHD, Depression, Hyperlipidemia PREVIOUS FUNCTIONAL STATUS/SOCIAL/FAMILY SUPPORTS:: Huber resides with a roommate in [facility]. 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 Huber has three children, two boys and a girl ranging from ages 13-16. He is independent at baseline, drives, and manages ADL's CURRENT FUNCTIONAL STATUS:: Currently Huber is sitting up in bed eating breakfast when this public relations writer visits. he is pleasant and open to discussion. ADVANCE DIRECTIVES:: None on file Has patient been provided with information about the portal?: Yes Did the patient sign up for the portal?: No CODE STATUS:: Full Code INSURANCE COVERAGE / FINANCIAL ISSUES:: Medicaid CURRENT HOME/COMMUNITY SERVICES/EQUIPMENT:: Currently Huber has no services or medical equipment in the community. PRIMARY CARE PHYSICIAN:: Valencia Avina POTENTIAL DISCHARGE NEEDS:: F/U appointment with Dr. Gagnon PATIENT/FAMILY EDUCATION NEEDS:: Review DC instructions, any limitations, and ongoing DC planning discussion. Review Ask Me Three ANTICIPATED BARRIERS TO DISCHARGE:: None identified at this time TRANSPORTATION:: Via private vehicle with parents PLAN:: Huber hopes to be discharged home today. He will F/U with Dr. Gagnon and plan of care as prescribed. Huber's parents will transport when ready.
--- NOTE | 2018-06-04 08:44 | INITIAL_ITS ---
- If Service Date Differs Date of service: 06/04/18 Time of Service: 08:38 Care Management Initial Assess REASON FOR HOSPITALIZATION:: Recurrent Biliary Colic - Lap Cholecystectomy PAST MEDICAL HISTORY/PAST SURGICAL HISTORY:: Recurrent Biliary Colic, ADHD, Depression, Hyperlipidemia PREVIOUS FUNCTIONAL STATUS/SOCIAL/FAMILY SUPPORTS:: Huber resides with a roommate in [facility]. 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 Huber has three children, two boys and a girl ranging from ages 13-16. He is independent at baseline, drives, and manages ADL's CURRENT FUNCTIONAL STATUS:: Currently Huber is sitting up in bed eating breakfast when this verse writer visits. he is pleasant and open to discussion. ADVANCE DIRECTIVES:: None on file Has patient been provided with information about the portal?: Yes Did the patient sign up for the portal?: No CODE STATUS:: Full Code INSURANCE COVERAGE / FINANCIAL ISSUES:: Medicaid CURRENT HOME/COMMUNITY SERVICES/EQUIPMENT:: Currently Huber has no services or medical equipment in the community. PRIMARY CARE PHYSICIAN:: Valencia Avina POTENTIAL DISCHARGE NEEDS:: F/U appointment with Dr. Gagnon PATIENT/FAMILY EDUCATION NEEDS:: Review DC instructions, any limitations, and ongoing DC planning discussion. Review Ask Me Three ANTICIPATED BARRIERS TO DISCHARGE:: None identified at this time TRANSPORTATION:: Via private vehicle with parents PLAN:: Huber hopes to be discharged home today. He will F/U with Dr. Gagnon and plan of care as prescribed. Huber's parents will transport when ready.
[2018-06-04 11:30] VITALS: BP 106/65; PULSE 64; RESP 19; TEMP 36; O2SAT 98
--- NOTE | 2018-06-04 12:29 | W.PM.DS.N ---
DS: Diagnosis Discharge Diagnosis (1) Recurrent biliary colic: Status: Acute Discharge Plan Disposition Patient Disposition: HOME Condition: Good Discharge Details Reason For Visit: RECURRENT BILIARY COLIC Admit Date/Time: 06/03/18 15:29 Admit Provider: Roosevelt Gagnon Attending Provider: Roosevelt Gagnon Primary Care Provider: [employer] [facility] [employer] Hospital Course Hospital Course: Mr. Masters is a pleasant 43 year old with Recurrent Biliary Cholic who was seen in the ER on Friday 06/01 and discharged home with a follow up in our office. He returned on 06/03 with continued pain and was taken to the OR. He underwent a Laparoscopic Cholecystectomy. He did well and was started on a clear liquid diet. He was given a regular diet for breakfast whcih he tolerated. he has only been taking Ibuprofen for pain. His incisions were c/d/i. Patient was discharged home. Home Meds and New Rx's Prescriptions: New acetaminophen [Tylenol] 325 mg Tablet 650 mg PO Q6H PRN PRNQty: 30 RF: 0 Continue pantoprazole 20 MG tablet,delayed release (DR/EC) 20 mg PO DAILY Qty: 90 RF: 3 pravastatin 20 MG tablet 20 mg PO DAILY Qty: 90 RF: 2 meclizine 25 MG tablet 25 - 50 mg PO DAILY PRNQty: 30 RF: 2 Citalopram Hydrobromide [Citalopram HBr] 40 MG tablet 40 mg PO DAILY Qty: 90 RF: 3 triamcinolone acetonide 15 GM cream 15 gm Topical BID PRNQty: 1 RF: 2 ibuprofen [Motrin IB] 200 MG tablet 800 mg PO Q6H 5 Days Qty: 80 RF: 0 hydrocodone-acetaminophen [[place]] 7.5-325 mg tablet 1 tab PO Q6H PRN (Reason: pain) Qty: 4 RF: 0 Discharge Instructions Instructions: Laparoscopic Cholecystectomy (DC) Additional Instructions: General Surgery Discharge Information Discharge Activities: 1. Continue incentive spirometry 10-15 times~every hour while awake and as tolerated 2. Ambulate at least 3 times a day for 15 minutes and as tolerated 3. Out of bed at least 3 times a day for 2 hours at a time, and as tolerated 4. You can shower, pat wounds dry, do not rub Restrictions: 1. No heavy lifting over 20 pounds for 2 weeks, no strenuous bending or twisting. 2. No swimming, baths, or immersion of wounds in water for 1 week. Follow-up appointments: Dr. Gagnon in 2 weeks on 06/17 at 11 am. His office is located in the upper level of the [employer] [facility] [address] hospital. The office number is [phone]. For any questions or to make, confirm appointments. If you are having fever, chills, nausea, vomiting, pain not controlled with pain medications, bleeding or drainage from your wounds. Call [phone] or [phone] (after hours). I understand the above instructions and have no questions. Signature of Patient or Responsible Adult Escort Date/Time Name of Responsible Adult Escort Signature of Nurse Date/Time Referrals: Roosevelt Gagnon DO [ [facility] STAFF PHYSICIAN] - 06/17/18 11:00 am Activity:: No lifting, pulling or pushing >20 lb x 2 weeks Equipment/Supplies:: No Equipment Needed Diet:: stay away from fried foods for 2 weeks Discharge Orders Discharge Orders: Discharge Order (Routine); Ordered 06/04/18 Ordered By: Jaclyn Heller DS: Summary Status at Discharge Functional status at discharge: independent ambulation Overall status at discharge: patient is back to baseline Time Spent with Patient Greater than 30 minutes Exam Const General: comfortable Resp Effort & Inspection: normal respiratory effort Auscultation: clear to auscultation bilaterally Cardio Rate: regular rate Rhythm: regular rhythm Heart Sounds: no gallops, no murmurs and no rubs GI Inspection: incision (c/d/i) Palpation: soft Auscultation: normal bowel sounds DS: Data Vitals/I&O Vitals and I&O: Vital Signs Temperature 96.8 F L 06/04/18 11:30 Temperature Source Tympanic 06/04/18 11:30 Pulse 64 06/04/18 11:30 Pulse Rhythm Regular 06/04/18 09:47 Respiratory Rate 19 06/04/18 11:30 Respiratory Effort Non-Labored 06/04/18 09:47 Respiratory Depth Normal 06/04/18 09:47 Respiratory Pattern Normal 06/04/18 09:47 Blood Pressure 106/65 06/04/18 11:30 Blood Pressure Position Sitting 06/03/18 14:01 Pulse Oximetry 98 06/04/18 11:30 Respiratory End-tidal CO2 43 06/03/18 19:24 Oxygen Delivery Method Room Air 06/04/18 11:30 Oxygen Flow Rate 0 06/04/18 11:30 Pain Level 4 06/04/18 11:30 Intake & Output 06/03/18 06/04/18 06/04/18 23:59 11:59 23:59 Intake Total 2350 / 2350 2989.167 / 2989.167 Output Total 700 / 700 300 / 300 Balance 1650 / 1650 2689.167 / 2689.167 Weight 191 lb 2.252 oz Intake: IV 2100 / 2100 1779.167 / 1779.167 Oral 250 / 250 1210 / 1210 Output: Urine 700 / 700 300 / 300 Other: Urine Color Pale Yellow Yellow Urine Appearance Clear Clear Urine Odor Normal Normal Comment voided in toilet Emesis Description None Voiding Methods Toilet Urinal Pending studies at discharge: WBC 9.09 k/cumm (4.4-10.8) 06/04/18 06:20 RBC 4.09 m/cumm (4.50-6.00) L 06/04/18 06:20 Hgb 12.9 g/dL (13.5-17.5) L 06/04/18 06:20 Hct 38.8 % (40.0-50.0) L 06/04/18 06:20 MCV 94.9 fL (80-95) 06/04/18 06:20 MCH 31.5 pg (27.0-33.0) 06/04/18 06:20 MCHC 33.2 g/dL (32.0-36.0) 06/04/18 06:20 RDW 12.4 % (11.8-14.1) 06/04/18 06:20 Plt Count 214 x1000/uL (130-400) 06/04/18 06:20 MPV 10.6 fL (8.0-11.0) 06/04/18 06:20 Immature Gran % 0.1 06/04/18 06:20 Neutrophils % 86.8 06/04/18 06:20 Lymphocytes % 8.1 06/04/18 06:20 Monocytes % 5.0 06/04/18 06:20 Eosinophils % 0.0 06/04/18 06:20 Basophils % 0.0 06/04/18 06:20 Absolute Neutrophils 7.89 k/cumm (1.2-6.7) H 06/04/18 06:20 Absolute Lymphocytes 0.74 k/cumm (1.2-3.4) L 06/04/18 06:20 Absolute Monocytes 0.45 k/cumm (0.11-0.7) 06/04/18 06:20 Absolute Eosinophils 0.00 k/cumm (0.0-0.7) 06/04/18 06:20 Absolute Basophils 0.00 k/cumm (0.0-0.2) 06/04/18 06:20 Sodium 140 mmol/L (136-145) 06/04/18 06:20 Potassium 4.3 mmol/L (3.5-5.1) 06/04/18 06:20 Chloride 103 mmol/L (98-107) 06/04/18 06:20 Carbon Dioxide 30.1 mmol/L (21.0-32.0) 06/04/18 06:20 Anion Gap 6.9 mmol/L (3-11) 06/04/18 06:20 BUN 9 mg/dL (7-18) 06/04/18 06:20 Creatinine 0.76 mg/dL (0.70-1.30) 06/04/18 06:20 Estimated GFR/1.73 m2 >= 60.00 (mL/min/1.73m2) 06/04/18 06:20 Glucose 138 mg/dL (70-100) H 06/04/18 06:20 Calcium 8.8 mg/dL (8.5-10.1) 06/04/18 06:20 Total Bilirubin 0.3 mg/dL (0.2-1.0) 06/04/18 06:20 AST 97 U/L (15-37) H 06/04/18 06:20 ALT 135 U/L (12-78) H 06/04/18 06:20 Alkaline Phosphatase 74 U/L (46-116) 06/04/18 06:20 Total Protein 7.2 g/dL (6.4-8.2) 06/04/18 06:20 Albumin 3.1 g/dL (3.4-5.0) L 06/04/18 06:20 Lipase 88 U/L (73-393) 06/03/18 14:20 Labs on day of discharge: Labs from last 24 hours 06/04/18 06/04/18 06/03/18 06:20 06:20 14:20 WBC 9.09 7.91 RBC 4.09 L 4.31 L Hgb 12.9 L 14.0 Hct 38.8 L 40.7 MCV 94.9 94.4 MCH 31.5 32.5 MCHC 33.2 34.4 RDW 12.4 12.5 Plt Count 214 207 MPV 10.6 10.1 Immature Gran % 0.1 0.1 Neutrophils % 86.8 55.2 Lymphocytes % 8.1 33.6 Monocytes % 5.0 10.1 Eosinophils % 0.0 0.9 Basophils % 0.0 0.1 Absolute Neutrophils 7.89 H 4.36 Absolute Lymphocytes 0.74 L 2.66 Absolute Monocytes 0.45 0.80 H Absolute Eosinophils 0.00 0.07 Absolute Basophils 0.00 0.01 Sodium 140 Potassium 4.3 Chloride 103 Carbon Dioxide 30.1 Anion Gap 6.9 BUN 9 Creatinine 0.76 Estimated GFR/1.73 m2 >= 60.00 Glucose 138 H Calcium 8.8 Total Bilirubin 0.3 AST 97 H ALT 135 H Alkaline Phosphatase 74 Total Protein 7.2 Albumin 3.1 L Lipase 06/03/18 14:20 WBC RBC Hgb Hct MCV MCH MCHC RDW Plt Count MPV Immature Gran % Neutrophils % Lymphocytes % Monocytes % Eosinophils % Basophils % Absolute Neutrophils Absolute Lymphocytes Absolute Monocytes Absolute Eosinophils Absolute Basophils Sodium 141 Potassium 3.8 Chloride 101 Carbon Dioxide 31.0 Anion Gap 9.0 BUN 11 Creatinine 0.81 Estimated GFR/1.73 m2 >= 60.00 Glucose 77 Calcium 8.9 Total Bilirubin 0.4 AST 25 ALT 54 Alkaline Phosphatase 77 Total Protein 8.0 Albumin 3.6 Lipase 88 Preliminary micro results at discharge 06/03/18 18:15 Surgical Culture - Preliminary Gallbladder - Bile
--- NOTE | 2018-06-04 12:32 | DSE_ITS ---
DS: Diagnosis Discharge Diagnosis (1) Recurrent biliary colic: Status: Acute Discharge Plan Disposition Patient Disposition: HOME Condition: Good Discharge Details Reason For Visit: RECURRENT BILIARY COLIC Admit Date/Time: 06/03/18 15:29 Admit Provider: Roosevelt Gagnon Attending Provider: Roosevelt Gagnon Primary Care Provider: [facility] Course Hospital Course: Mr. Masters is a pleasant 43 year old with Recurrent Biliary Cholic who was seen in the ER on Friday 06/01 and discharged home with a follow up in our office. He returned on 06/03 with continued pain and was taken to the OR. He underwent a Laparoscopic Cholecystectomy. He did well and was started on a clear liquid diet. He was given a regular diet for breakfast whcih he tolerated. he has only been taking Ibuprofen for pain. His incisions were c/d/ i. Patient was discharged home. Home Meds and New Rx's Prescriptions: New acetaminophen [Tylenol] 325 mg Tablet 650 mg PO Q6H PRN PRNQty: 30 RF: 0 Continue pantoprazole 20 MG tablet,delayed release (DR/EC) 20 mg PO DAILY Qty: 90 RF: 3 pravastatin 20 MG tablet 20 mg PO DAILY Qty: 90 RF: 2 meclizine 25 MG tablet 25 - 50 mg PO DAILY PRNQty: 30 RF: 2 Citalopram Hydrobromide [Citalopram HBr] 40 MG tablet 40 mg PO DAILY Qty: 90 RF: 3 triamcinolone acetonide 15 GM cream 15 gm Topical BID PRNQty: 1 RF: 2 ibuprofen [Motrin IB] 200 MG tablet 800 mg PO Q6H 5 Days Qty: 80 RF: 0 hydrocodone-acetaminophen [[place]] 7.5-325 mg tablet 1 tab PO Q6H PRN (Reason: pain) Qty: 4 RF: 0 Discharge Instructions Instructions: Laparoscopic Cholecystectomy (DC) Additional Instructions: General Surgery Discharge Information Discharge Activities: 1. Continue incentive spirometry 10-15 times~every hour while awake and as tolerated 2. Ambulate at least 3 times a day for 15 minutes and as tolerated 3. Out of bed at least 3 times a day for 2 hours at a time, and as tolerated 4. You can shower, pat wounds dry, do not rub Restrictions: 1. No heavy lifting over 20 pounds for 2 weeks, no strenuous bending or twisting. 2. No swimming, baths, or immersion of wounds in water for 1 week. Follow-up appointments: Dr. Gagnon in 2 weeks on 06/17 at 11 am. His office is located in the upper level of the [employer] [facility] [address] [place] [address] hospital. The office number is [phone]. For any questions or to make, confirm appointments. If you are having fever, chills, nausea, vomiting, pain not controlled with pain medications, bleeding or drainage from your wounds. Call [phone] or [phone] (after hours). I understand the above instructions and have no questions. _ Signature of Patient or Responsible Adult Escort Date/Time _ Name of Responsible Adult Escort _ Signature of Nurse Date/Time Referrals: Roosevelt Gagnon DO [ [facility] STAFF PHYSICIAN] - 06/17/18 11:00 am Activity:: No lifting, pulling or pushing >20 lb x 2 weeks Equipment/Supplies:: No Equipment Needed Diet:: stay away from fried foods for 2 weeks Discharge Orders Discharge Orders: Discharge Order (Routine); Ordered 06/04/18 Ordered By: Jaclyn Heller DS: Summary Status at Discharge Functional status at discharge: independent ambulation Overall status at discharge: patient is back to baseline Time Spent with Patient Greater than 30 minutes Exam Const General: comfortable Resp Effort & Inspection: normal respiratory effort Auscultation: clear to auscultation bilaterally Cardio Rate: regular rate Rhythm: regular rhythm Heart Sounds: no gallops, no murmurs and no rubs GI Inspection: incision (c/d/i) Palpation: soft Auscultation: normal bowel sounds DS: Data Vitals/I&O Vitals and I&O: Vital Signs Temperature 96.8 F L 06/04/18 11:30 Temperature Source Tympanic 06/04/18 11:30 Pulse 64 06/04/18 11:30 Pulse Rhythm Regular 06/04/18 09:47 Respiratory Rate 19 06/04/18 11:30 Respiratory Effort Non-Labored 06/04/18 09:47 Respiratory Depth Normal 06/04/18 09:47 Respiratory Pattern Normal 06/04/18 09:47 Blood Pressure 106/65 06/04/18 11:30 Blood Pressure Position Sitting 06/03/18 14:01 Pulse Oximetry 98 06/04/18 11:30 Respiratory End-tidal CO2 43 06/03/18 19:24 Oxygen Delivery Method Room Air 06/04/18 11:30 Oxygen Flow Rate 0 06/04/18 11:30 Pain Level 4 06/04/18 11:30 Intake & Output 06/03/18 06/04/18 06/04/18 23:59 11:59 23:59 Intake Total 2350 / 2350 2989.167 / 2989.167 Output Total 700 / 700 300 / 300 Balance 1650 / 1650 2689.167 / 2689.167 Weight 191 lb 2.252 oz Intake: IV 2100 / 2100 1779.167 / 1779.167 Oral 250 / 250 1210 / 1210 Output: Urine 700 / 700 300 / 300 Other: Urine Color Pale Yellow Yellow Urine Appearance Clear Clear Urine Odor Normal Normal Comment voided in toilet Emesis Description None Voiding Methods Toilet Urinal Pending studies at discharge: WBC 9.09 k/cumm (4.4-10.8) 06/04/18 06:20 RBC 4.09 m/cumm (4.50-6.00) L 06/04/18 06:20 Hgb 12.9 g/dL (13.5-17.5) L 06/04/18 06:20 Hct 38.8 % (40.0-50.0) L 06/04/18 06:20 MCV 94.9 fL (80-95) 06/04/18 06:20 MCH 31.5 pg (27.0-33.0) 06/04/18 06:20 MCHC 33.2 g/dL (32.0-36.0) 06/04/18 06:20 RDW 12.4 % (11.8-14.1) 06/04/18 06:20 Plt Count 214 x1000/uL (130-400) 06/04/18 06:20 MPV 10.6 fL (8.0-11.0) 06/04/18 06:20 Immature Gran % 0.1 06/04/18 06:20 Neutrophils % 86.8 06/04/18 06:20 Lymphocytes % 8.1 06/04/18 06:20 Monocytes % 5.0 06/04/18 06:20 Eosinophils % 0.0 06/04/18 06:20 Basophils % 0.0 06/04/18 06:20 Absolute Neutrophils 7.89 k/cumm (1.2-6.7) H 06/04/18 06:20 Absolute Lymphocytes 0.74 k/cumm (1.2-3.4) L 06/04/18 06:20 Absolute Monocytes 0.45 k/cumm (0.11-0.7) 06/04/18 06:20 Absolute Eosinophils 0.00 k/cumm (0.0-0.7) 06/04/18 06:20 Absolute Basophils 0.00 k/cumm (0.0-0.2) 06/04/18 06:20 Sodium 140 mmol/L (136-145) 06/04/18 06:20 Potassium 4.3 mmol/L (3.5-5.1) 06/04/18 06:20 Chloride 103 mmol/L (98-107) 06/04/18 06:20 Carbon Dioxide 30.1 mmol/L (21.0-32.0) 06/04/18 06:20 Anion Gap 6.9 mmol/L (3-11) 06/04/18 06:20 BUN 9 mg/dL (7-18) 06/04/18 06:20 Creatinine 0.76 mg/dL (0.70-1.30) 06/04/18 06:20 Estimated GFR/1.73 m2 >= 60.00 (mL/min/1.73m2) 06/04/18 06:20 Glucose 138 mg/dL (70-100) H 06/04/18 06:20 Calcium 8.8 mg/dL (8.5-10.1) 06/04/18 06:20 Total Bilirubin 0.3 mg/dL (0.2-1.0) 06/04/18 06:20 AST 97 U/L (15-37) H 06/04/18 06:20 ALT 135 U/L (12-78) H 06/04/18 06:20 Alkaline Phosphatase 74 U/L (46-116) 06/04/18 06:20 Total Protein 7.2 g/dL (6.4-8.2) 06/04/18 06:20 Albumin 3.1 g/dL (3.4-5.0) L 06/04/18 06:20 Lipase 88 U/L (73-393) 06/03/18 14:20 Labs on day of discharge: Labs from last 24 hours 06/04/18 06/04/18 06/03/18 06:20 06:20 14:20 WBC 9.09 7.91 RBC 4.09 L 4.31 L Hgb 12.9 L 14.0 Hct 38.8 L 40.7 MCV 94.9 94.4 MCH 31.5 32.5 MCHC 33.2 34.4 RDW 12.4 12.5 Plt Count 214 207 MPV 10.6 10.1 Immature Gran % 0.1 0.1 Neutrophils % 86.8 55.2 Lymphocytes % 8.1 33.6 Monocytes % 5.0 10.1 Eosinophils % 0.0 0.9 Basophils % 0.0 0.1 Absolute Neutrophils 7.89 H 4.36 Absolute Lymphocytes 0.74 L 2.66 Absolute Monocytes 0.45 0.80 H Absolute Eosinophils 0.00 0.07 Absolute Basophils 0.00 0.01 Sodium 140 Potassium 4.3 Chloride 103 Carbon Dioxide 30.1 Anion Gap 6.9 BUN 9 Creatinine 0.76 Estimated GFR/1.73 m2 >= 60.00 Glucose 138 H Calcium 8.8 Total Bilirubin 0.3 AST 97 H ALT 135 H Alkaline Phosphatase 74 Total Protein 7.2 Albumin 3.1 L Lipase 06/03/18 14:20 WBC RBC Hgb Hct MCV MCH MCHC RDW Plt Count MPV Immature Gran % Neutrophils % Lymphocytes % Monocytes % Eosinophils % Basophils % Absolute Neutrophils Absolute Lymphocytes Absolute Monocytes Absolute Eosinophils Absolute Basophils Sodium 141 Potassium 3.8 Chloride 101 Carbon Dioxide 31.0 Anion Gap 9.0 BUN 11 Creatinine 0.81 Estimated GFR/1.73 m2 >= 60.00 Glucose 77 Calcium 8.9 Total Bilirubin 0.4 AST 25 ALT 54 Alkaline Phosphatase 77 Total Protein 8.0 Albumin 3.6 Lipase 88 Preliminary micro results at discharge 06/03/18 18:15 Surgical Culture - Preliminary Gallbladder - Bile
[2018-06-04] MEDS: Acetaminophen 325 MG TAB 650 MG PO (13:51)
--- NOTE | 2018-06-04 15:40 | CHAPLAIN ---
I had a short visit with Huber this morning. He is a member of the [employer] and his activities therapist, Reddy Abad knows that Jalen is here.
== END 2018-06-04 15:56 | disposition home or self-care (01) ==
LOC: ER 17:33 → MS 06-04 05:31
PROVIDERS: Admitting Provider Surgery; Emergency Provider Physician Assistant; PCP Family Medicine; Visit Provider Surgery
PROC: 0FT44ZZ Resection of Gallbladder, Percutaneous Endoscopic Approach (ICD-10-PCS; CPT 47562; principal; 2018-06-03 17:30)
DX: K80.12 Calculus of gallbladder with acute and chronic cholecystitis without obstruction (principal)
CPT/HCPCS: 47562; 36415; 80053; 83690; 96361; 96365; 96375; 99223; 99285; NC; 85025; 87070; 87205; 88304; 99284; G0378; J0131; J1100; J1885; J2250; J2405; J3010

== ENCOUNTER 2018-06-18 21:19 | Emergency (ER) | payer MEDICAID, SELFPAY ==
[2018-06-18 21:49] VITALS: BP 118/76; PULSE 64; RESP 16; TEMP 37; O2SAT 97
[2018-06-18 21:56] VITALS: RESP 16
[2018-06-18] MEDS: Ibuprofen 600 MG TAB PO (21:56)
--- NOTE | 2018-06-18 21:56 | ED.GENADUL_ITS ---
Discharge Plan Disposition Patient Disposition: HOME Condition: Stable Discharge Details Chief Complaint: Vascular Clinical Impression: Superficial thrombophlebitis of arm Primary Care Provider: [facility] ED Provider: Libby Pleitez Home Meds and New Rx's Prescriptions: New ibuprofen 600 mg tablet 600 mg PO QID PRN (Reason: pain) Qty: 20 RF: 0 Continue pantoprazole 20 MG tablet,delayed release (DR/EC) 20 mg PO DAILY Qty: 90 RF: 3 pravastatin 20 MG tablet 20 mg PO DAILY Qty: 90 RF: 2 meclizine 25 MG tablet 25 - 50 mg PO DAILY PRNQty: 30 RF: 2 Citalopram Hydrobromide [Citalopram HBr] 40 MG tablet 40 mg PO DAILY Qty: 90 RF: 3 triamcinolone acetonide 15 GM cream 15 gm Topical BID PRNQty: 1 RF: 2 acetaminophen [Tylenol] 325 mg Tablet 650 mg PO Q6H PRN PRNQty: 30 RF: 0 Discharge Instructions Instructions: Superficial Thrombophlebitis (ED) Additional Instructions: Apply warm or cool compresses to the affected area several times daily for 20 minutes at a time. Keep your left arm elevated as much as possible. Use a pillow under your arm while sitting and sleeping. Apply bacitracin antibiotic ointment to the area 2 times daily if you develop worsening redness or swelling. Follow up with your primary doctor in 2 days for re-evaluation. Return to the emergency department with any worsening or new concerning symptoms or for ultrasound of your upper extremity if symptoms worsen. Discharge Data Discharge Physician: Libby Pleitez Medical Decision Making 43-year-old male who is 15 days status post a lap michelle who had IV placement at the day of surgery who presents for left forearm tenderness, redness and swelling of the site of previous IV placement. States he noticed his symptoms started yesterday. Appears consistent with a superficial thrombophlebitis as there is a distinct area of tenderness, and mild edema and erythema consistent with a palpable cord. There is no abscess, induration, fluctuance. Patient appears nontoxic and in no acute distress. He is neurovascularly intact. Bedside ultrasound done overlying vein and there appears to be a thrombus in this superficial vein and it is noncompressible. At this point time this does seem superficial, I am not concerned about acute infection, or concerned about DVT. Discussed with patient that this is best treated with warm or cool compresses, elevation of extremity, and NSAIDs. Dose of ibuprofen given here and prescription for home. Patient was instructed to return here immediately with any signs of acute infection such as fever, increased pain redness or swelling. He was also given 3 packets of bacitracin to apply to the area with any signs of mild infection. He was also instructed to return immediately if he develops significant edema or pain of the forearm/arm which would be more indicative of a DVT for an upper extremity ultrasound. Instructed to follow-up with primary care doctor in 1 week for reevaluation as needed and return here immediately if worse. HPI General Mode of arrival: ambulatory . Date/Time Provider Initiated Documentation: 06/18/18 21:21 . Limitations to Documentation: no limitations . Information obtained by: patient . HPI Narrative: Patient is a 43-year-old male who is 15 days status post a laparoscopic cholecystectomy who had IV placement in the left upper extremity who presents for localized pain and swelling at the left forearm IV site since yesterday. Pt states today the area became slightly more painful and swollen. He denies fever, chest pain, shortness of breath. He has not taken any medication for his symptoms. He denies any abdominal pain and states he had been doing very well since his laparoscopic cholecystectomy. He last had a follow-up appointment with surgery Dr. Gagnon yesterday and has been doing well. Past medical history: Anxiety, Depression, GERD, High cholesterol, ADD Surgical history: Hernia repair, Vasectomy, Cholecystectomy Social history: Former tobacco, Denies ETOH, occasional marijuana Meds: See list Allergies: NKDA Related Data Home Medications Medication Instructions Recorded Confirmed pantoprazole 20 mg PO DAILY #90 tab-cap 08/28/17 06/18/18 meclizine 25 - 50 mg PO DAILY PRN #30 tab-cap 09/08/17 06/18/18 pravastatin 20 mg PO DAILY #90 tab-cap 09/08/17 06/18/18 triamcinolone acetonide 15 gm TOPICAL BID PRN #1 script 01/28/18 06/18/18 acetaminophen [Tylenol] 650 mg PO Q6H PRN PRN #30 tab 06/04/18 06/18/18 ibuprofen 600 mg PO QID PRN #20 tab 06/18/18 Previous Rx's Medication Instructions Recorded pantoprazole 20 mg PO DAILY #90 tab-cap 08/28/17 pravastatin 20 mg PO DAILY #90 tab-cap 09/08/17 acetaminophen [Tylenol] 650 mg PO Q6H PRN PRN #30 tab 06/04/18 ibuprofen 600 mg PO QID PRN #20 tab 06/18/18 Allergies Allergy/AdvReac Type Severity Reaction Status Date / Time No Known Drug Allergies Allergy Verified 06/18/18 21:54 General DARI: 3 Review of Systems Review of Systems All systems reviewed & are unremarkable except as noted in HPI and below Constitutional Reports as per HPI, Denies chills and Denies fever(s) Eyes Denies blurry vision ENT Denies dizziness, Denies sore throat and Denies throat swelling Cardiovascular Denies chest pain and Denies dyspnea Respiratory Denies dyspnea Gastrointestinal Denies abdominal pain, Denies diarrhea and Denies vomiting Genitourinary Denies hematuria and Denies dysuria Musculoskeletal Denies back pain and Denies numbness Integumentary/Breasts Denies lesions and Denies rash Neurologic Denies dizziness and Denies numbness Allergic/Immunologic Denies throat swelling Exam Const General: cooperative, healthy appearing and no acute distress HENMT Head: normal to inspection Mouth: oral mucosae normal Eyes General: appearance normal, both eyes and all related structures Neck Neck: normal visual inspection Resp Effort & Inspection: normal respiratory effort and able to speak in complete sentences Cardio Rate: regular rate Skin General skin exam: no rashes or lesions noted Neuro General: alert, awake and oriented x3 Motor: muscle tone normal throughout Extrem Left upper extremity: elbow/forearm (Localized area of tenderness palpation, minimal edema and erythema consistent with a palpable cord on the left proximal medial forearm extending approximately 7 cm. Appears consistent with a local thrombophlebitis. There is no surrounding induration, fluctuance, active bleeding or drainage.) Other: Left radial and ulnar pulses intact. Psych Appearance: grossly normal Affect: normal affect
[2018-06-18 22:13] VITALS: BP 118/76; PULSE 64; RESP 16; TEMP 37; O2SAT 97
== END 2018-06-18 22:10 | disposition home or self-care (01) ==
PROVIDERS: Emergency Provider Physician Assistant; PCP Family Medicine
DX: I80.8 Phlebitis and thrombophlebitis of other sites (principal)
CPT/HCPCS: 99282

== ENCOUNTER 2018-07-25 00:33 | Outpatient (CLI) | payer MEDICAID, SELFPAY ==
[2018-07-25 10:42] LABS: ALT 76 U/L (12-78); AST 36 U/L (15-37); Alkaline Phosphatase 77 U/L (46-116); Anion Gap 7.5 mmol/L (3-11); BUN 11 mg/dL (7-18); Bilirubin, Total 0.6 mg/dL (0.2-1.0); CO2 30.5 mmol/L (21.0-32.0); CREATININE 0.89 mg/dL (0.70-1.30); Calcium 9.1 mg/dL (8.5-10.1); Chloride 104 mmol/L (98-107); Cholesterol 246 mg/dL (50-200); Glucose 112 mg/dL (70-100); HDL Cholesterol 60 mg/dL (40-60); LDL CHOLESTEROL 160 mg/dL (<100); Potassium 4.4 mmol/L (3.5-5.1); Sodium 142 mmol/L (136-145); Total Protein 7.5 g/dL (6.4-8.2); Triglyceride 157 mg/dL (30-150)
== END 2018-07-25 00:53 ==
PROVIDERS: PCP Family Medicine; Visit Provider Family Medicine
DX: E78.5 Hyperlipidemia, unspecified (principal)
CPT/HCPCS: 36415; 80053; 80061; 83721

== ENCOUNTER 2018-10-13 06:56 | Day surgery (SDC) | payer MEDICAID, SELFPAY ==
--- NOTE | 2018-10-13 06:39 | COLE_ITS ---
Date of service: 10/13/18 Time of Service: 07:53 Colonoscopy Report Date of procedure: 10/13/18 Pre-op diagnosis general: Chronic diarrhea Post-op diagnosis procedure note: same Procedure: Colonoscopy with random biopsies Surgeon: Jaclyn Heller Anesthesia proc note operative: MAC (Chrissy Ann, CHIEF NURSING OFFICER / ASA 2) Estimated blood loss (mL): 5 Pathology: other (random biopsies of colon) Complications: None Disposition: same day Indications: Mr. Wisdom is a pleasant 43 year old male with chronic diarrhea. Risks, benefits and complications have been reviewed. Complications include but are not limited to bleeding, pain, perforation, missed small lesion/polyp, sore throat, aspiration and adverse reaction to the medications. Questions were entertained and answered to their satisfaction and they wished to proceed. No guarantees were given or implied. Prep: Miralax/Dulcolax Procedure Start Time: 07:53 Procedure End Time: 08:20 Retraction Time: 21 minutes Findings: Normal colon Procedure Description: After informed consent was obtained the patient was taken to the procedure room and placed in a left decubitous position. Monitors were applied and a time out was done. The patients name, date of , procedure, allergies to medications and metal in their body was reviewed. The patient was then sedated. Once sedated and comfortable a rectal exam was done. External exam was normal. Internal exam revealed a normal sphincter tone and no palpable masses. The prostate was normal. The scope was then introduced and retro-flexed. No internal hemorrhoids were identified. The scope was then advanced to the cecum without difficulty. The TI and appendiceal orifice were identified. The prep was adequate. The scope was then slowly retracted over 21 minutes back into the rectum. There were no polyps noted. Random biopsies were done throughout the colon to rule out microscopic colitis. The scope was removed and the patient was woken up and taken back to Same day surgery in stable condition. The patient tolerated the procedure well and there were no immediate complications. Follow up: The patient should follow up in 10 years unless they develop changes in bowel habits or other new gastrointestinal complaints. I will call with results of his biopsies. I suspect he has IBS.
--- NOTE | 2018-10-13 06:39 | W.PM.DSUDISC ---
Discharge Plan Disposition Patient Disposition: HOME Condition: Good Discharge Details Reason For Visit: Chronic diarrhea Attending Provider: Jaclyn Heller Primary Care Provider: Valencia Avina Home Meds and New Rx's Prescriptions: Continued pravastatin 20 MG tablet 20 mg PO DAILY Qty: 90 RF: 2 meclizine 25 MG tablet 25 - 50 mg PO DAILY PRNQty: 30 RF: 2 Citalopram Hydrobromide [Citalopram HBr] 40 MG tablet 40 mg PO DAILY Qty: 90 RF: 3 triamcinolone acetonide 15 GM cream 15 gm Topical BID PRNQty: 1 RF: 2 pantoprazole 20 mg tablet,delayed release (DR/EC) 20 mg PO DAILY Qty: 90 RF: 3 acetaminophen [Tylenol] 325 mg Tablet 650 mg PO Q6H PRN PRNQty: 30 RF: 0 Lactobacillus acidophilus [Acidophilus] Capsule 1 cap PO HS RF: 0 Discontinued polyethylene glycol 3350 17 gram powder in packet 255 g PO DAILY Qty: 15 RF: 0 bisacodyl [Dulcolax (bisacodyl)] 5 mg tablet,delayed release (DR/EC) 5 mg PO ONCE Qty: 4 RF: 0 ibuprofen 600 mg tablet 600 mg PO QID PRN (Reason: pain) Qty: 20 RF: 0 Discharge Instructions Instructions: Colonoscopy (DC) Additional Instructions: Findings: normal colon Follow up:10 years for next colonoscopy Please call if you develop: fevers >101.5 Nausea or Vomiting Abdominal pain that is not transient DAY SURGERY UNIT POST COLONOSCOPY INSTRUCTIONS 1. Because there will be medication in your system for the next 24 hours, you may feel a little sleepy. Your coordination will be affected. Therefore: a. Do not drive or operate dangerous equipment for 24 hours. b. Do not drink alcohol beverages for 24 hours (not even beer). c. Plan to go home and rest for the day. 2. Generally there are no restrictions on your activity after a day or so has gone by, but you may feel a bit fatigued for a few days. 3 After you arrive home you may have a light meal and return to a normal diet as you can tolerate it without feeling sick to your stomach. 4. After surgery, you may feel pain or discomfort. This should be only transient, but if it persists please contact your doctor. 5. If there are any questions regarding the findings of your procedure, please feel free to contact your doctor. 6. If you are unable to contact your doctor with a problem, contact the hospital at [phone]. 7. Continue all your regular medications unless directed otherwise. I understand the above instructions and have no questions. Signature of Patient or Responsible Adult Escort Date/Time Name of Responsible Adult Escort Signature of Nurse Date/Time Activity:: Activity as Tolerated Diet:: As Tolerated Discharge Orders Discharge Orders: Discharge Order (Routine); Ordered 10/13/18 Ordered By: Jaclyn Heller DS: Diagnosis Discharge Diagnosis (1) S/P colonoscopy: Status: Acute
[2018-10-13 07:20] VITALS: BP 120/74; PULSE 72; RESP 16; TEMP 35.1; O2SAT 97
[2018-10-13] MEDS: Lactated Ringers 1,000 ML 80 ML IV (07:32)
--- NOTE | 2018-10-13 08:04 | BOWEL_PTH ---
PATIENT: Huber Masters II LOC: [facility] U#:[id number] AGE/SX: 43/M ROOM: RE10/13/[address]: Jaclyn Heller MD : [id number] BED: DIS: 10/13/2018 SPEC #: [id number] RECD: 10/13/18 12:52 STATUS: JULIANA RE #: [id number] AMIRA: 10/13/18 08:[address]: Jaclyn Heller DEPT: Surgical Specimen RECD BY: Alana Paez ENTERED: 10/13/18 12:53 SP TYPE: Bowel OTHR DR: Valencia Avina MD Tissues: 1 - BIOPSY BOWEL 2 - BIOPSY BOWEL 3 - BIOPSY BOWEL 4 - BIOPSY BOWEL 5 - BIOPSY BOWEL Procedures: GROSS AND MICRO LEVEL 4 Comments: [id number]
[2018-10-13 09:00] VITALS: BP 110/75; PULSE 77; RESP 18; TEMP 35.1; O2SAT 94
== END 2018-10-13 09:25 | disposition home or self-care (01) ==
LOC: SUR 06:57
PROVIDERS: PCP Family Medicine; Visit Provider Surgery
PROC: 0DJD8ZZ Inspection of Lower Intestinal Tract, Via Natural or Artificial Opening Endoscopic (ICD-10-PCS; CPT 45378; principal; 2018-10-13 08:00)
DX: R19.7 Diarrhea, unspecified (principal); K62.1 Rectal polyp; K59.8 Other specified functional intestinal disorders
CPT/HCPCS: 45380; 88305

== ENCOUNTER 2018-11-04 11:23 | Emergency (ER) | payer MEDICAID, SELFPAY ==
[2018-11-04 11:30] VITALS: BP 144/92; PULSE 95; RESP 16; TEMP 36.4; O2SAT 96
--- NOTE | 2018-11-04 12:04 | DI.CT_ITS ---
SYMPTOMS/DIAGNOSIS: RT FLANK PAIN RENAL COLIC CT: Routine examination. Comparison CT scan is 04/02/17. The visualized lung bases show mild atelectatic changes. There are geographic areas of decreased attenuation of the liver again noted most consistent with fatty infiltration. There is a similar appearance on the CT scan from 04/02/17. The patient is status post cholecystectomy. No biliary ductal dilatation is seen. The unenhanced visualized portions of the pancreas, spleen and adrenal glands are unremarkable. The kidneys show no evidence of nephrolithiasis or hydronephrosis. There is a cyst again seen in the left kidney which appears stable. No ureterolithiasis is seen. The urinary bladder is intact. No bladder stones are present. The prostate gland is grossly unremarkable. The bowel shows no evidence of obstruction or inflammation. There is a normal appendix present. The aorta is of normal caliber. No significant abdominal or pelvic adenopathy, ascites or pneumoperitoneum is present. No acute osseous abnormality is identified. IMPRESSION: 1. No evidence of an acute abdomen. 2. No evidence of nephrolithiasis or obstructive uropathy. 3. Status post cholecystectomy. No biliary ductal dilatation. Normal appendix. 4. Fatty infiltration of the liver. These findings were discussed with the emergency department on the date of the examination.
--- NOTE | 2018-11-04 12:14 | ED.GENADUL_ITS ---
Discharge Plan Disposition Patient Disposition: HOME Condition: Good Discharge Details Chief Complaint: Abd Prob Clinical Impression: Right flank pain Primary Care Provider: Valencia Avina ED Provider: Sampson Pacheco Meds and New Rx's Prescriptions: Continued pravastatin 20 MG tablet 20 mg PO DAILY Qty: 90 RF: 2 meclizine 25 MG tablet 25 - 50 mg PO DAILY PRNQty: 30 RF: 2 Citalopram Hydrobromide [Citalopram HBr] 40 MG tablet 40 mg PO DAILY Qty: 90 RF: 3 triamcinolone acetonide 15 GM cream 15 gm Topical BID PRNQty: 1 RF: 2 pantoprazole 20 mg tablet,delayed release (DR/EC) 20 mg PO DAILY Qty: 90 RF: 3 acetaminophen [Tylenol] 325 mg Tablet 650 mg PO Q6H PRN PRNQty: 30 RF: 0 Lactobacillus acidophilus [Acidophilus] Capsule 1 cap PO HS RF: 0 Discharge Instructions Additional Instructions: Your laboratory studies and urine are unremarkable with no evidence of significant abnormality. Your CT scan shows nothing acute with no evidence of kidney stones. The appendix is normal. Suspect pain may be related to the abdominal wall muscles. Should try using heat for the next few days as well as acetaminophen or ibuprofen. Follow-up with your primary care next week if not doing better. Return to the ED if you develop fever, vomiting, new or worsening pain. Referrals: Valencia Avina MD [Primary Care Provider] - Medical Decision Making Patient here with right flank pain. He has no GI symptoms other than chronic diarrhea. He has had no fever. He has no respiratory symptoms. There is no rash. He has no urinary symptoms. Pain is been getting worse and is now constant. He does not look uncomfortable like a kidney stone but would have to entertain that as a diagnosis. He has already had his gallbladder out. He has no hepatomegaly. He is not jaundiced. We will go ahead and place a line. We will get labs and urine. We will do a stone study CT scan and give Toradol for pain. Patient's urine is normal. Laboratory studies are unremarkable. CT scan is read by radiology as nothing acute. Specifically there are no stones. There is a normal appendix. He is status post cholecystectomy. Patient's pain is therefore likely abdominal wall/muscle pain. We will have him try ibuprofen a few times a day for the next 3-4 days and follow-up with primary care next week. Return to ED for fever, vomiting, worsening or new pain. HPI General Mode of arrival: ambulatory . Date/Time Provider Initiated Documentation: 11/04/18 11:51 . Limitations to Documentation: no limitations . Information obtained by: patient . HPI Narrative: Patient presents with 1-2-week history of right flank pain which has gone from being intermittent to constant and severe. It is nonradiating. He originally thought it was a pulled muscle and it is worse with movement. It is not worse with breathing. It is not rib pain. He has no shortness of breath, cough, fever. He has no urinary symptoms. He has chronic diarrhea which is unchanged. He had a colonoscopy for that last month. That was normal. He has already had his gallbladder out. He denies nausea/vomiting and continues to eat and drink well. He took Aleve a couple days ago which helped with the pain but has not taken anything since then. Related Data Home Medications Medication Instructions Recorded Confirmed meclizine 25 - 50 mg PO DAILY PRN #30 tab-cap 09/08/17 11/04/18 pravastatin 20 mg PO DAILY #90 tab-cap 09/08/17 11/04/18 triamcinolone acetonide 15 gm TOPICAL BID PRN #1 script 01/28/18 11/04/18 acetaminophen [Tylenol] 650 mg PO Q6H PRN PRN #30 tab 06/04/18 11/04/18 pantoprazole 20 mg tablet,delayed 20 mg PO DAILY #90 tab-cap 07/20/18 11/04/18 release Lactobacillus acidophilus 1 cap PO HS 10/09/18 11/04/18 [Acidophilus] Previous Rx's Medication Instructions Recorded pravastatin 20 mg PO DAILY #90 tab-cap 09/08/17 acetaminophen [Tylenol] 650 mg PO Q6H PRN PRN #30 tab 06/04/18 pantoprazole 20 mg tablet,delayed 20 mg PO DAILY #90 tab-cap 07/20/18 release Allergies Allergy/AdvReac Type Severity Reaction Status Date / Time No Known Drug Allergies Allergy Verified 11/04/18 11:33 General Stated Complaint: Abd Prob DARI: 3 Review of Systems Constitutional Denies chills, Denies fever(s), Denies headache(s), Denies poor appetite and Denies weakness Eyes Denies eye discharge and Denies eye pain ENT Denies otalgia, Denies facial pain, Denies headache(s), Denies neck pain and Denies sore throat Cardiovascular Denies chest pain, Denies diaphoresis, Denies syncope, Denies rapid heart rate, Denies leg edema, Denies lightheadedness and Denies dyspnea Respiratory Denies cough, Denies hemoptysis, Denies pain on inspiration and Denies dyspnea Gastrointestinal Denies abdominal pain, Denies melena, Denies hematochezia, Reports diarrhea, Denies nausea and Denies vomiting Genitourinary Denies hematuria, Denies difficulty urinating, Denies dysuria, Reports flank pain, Denies testicular pain, Denies urinary frequency and Denies urinary hesitancy Musculoskeletal Denies back pain, Denies myalgias, Denies arthralgias, Denies neck pain, Denies numbness and Denies stiffness Integumentary/Breasts Denies erythema and Denies rash Neurologic Denies syncope, Denies headache(s), Denies numbness and Denies weakness [facility] Medical History GERD (gastroesophageal reflux disease) (Chronic) Hypercholesterolemia (Chronic) Depression (Chronic) Fatty liver (Chronic) Surgical History S/P colonoscopy (Inactive ~10/13/18) S/P cholecystectomy (Inactive ~06/2018) Vasectomy (Inactive) repair of incarcerated umbilical hernia (Inactive 04/16/17) Social History marital status details: Single lives independently: Yes Smoking and Tabacco status: Former Tobacco Use alcohol intake: never substance use type: marijuana Exam Const General: cooperative, comfortable and no acute distress Orientation: alert and oriented x3 HENMT Head: normocephalic and atraumatic Mouth: moist mucous membranes Eyes Sclera: sclerae normal Neck Neck: normal visual inspection, trachea midline and supple Chest Chest: no tenderness Resp Effort & Inspection: normal respiratory effort Auscultation: clear to auscultation bilaterally Cardio Rate: regular rate Rhythm: regular rhythm Heart Sounds: S1 normal and S2 normal GI Inspection: normal to inspection and non-distended Palpation: soft, not firm, no guarding, no hepatosplenomegaly, no masses and nontender Male General Exam: Yes normal external exam and No hernia Back/Spine/Pelvis Back: no CVA tenderness Skin General skin exam: no rashes or lesions noted Neuro General: alert, oriented x3, no focal motor deficits and CN's II-XI intact bilaterally Extrem General: normal to inspection, full ROM and normal capillary refill Course Vital Signs Temperature 97.5 F L 11/04/18 11:30 Pulse 95 H 11/04/18 11:30 Respiratory Rate 16 11/04/18 11:30 Blood Pressure 144/92 H 11/04/18 11:30 Pulse Oximetry 96 11/04/18 11:30 Temperature 97.5 F L 11/04/18 11:30 Temperature Source Temporal Artery Scan 11/04/18 11:30 Pulse 95 H 11/04/18 11:30 Respiratory Rate 16 11/04/18 11:30 Respiratory Effort Non-Labored 11/04/18 11:45 Blood Pressure 144/92 H 11/04/18 11:30 Pulse Oximetry 96 11/04/18 11:30 Oxygen Delivery Method Room Air 11/04/18 11:30 Oxygen Flow Rate 0 11/04/18 11:30 Pain Level 7 11/04/18 11:30
[2018-11-04 12:23] LABS: Abs Immature Grans 0.01 k/cumm (0.0-0.09); Absolute Basophil Count 0.02 k/cumm (0.0-0.2); Absolute Eosinophil Count 0.07 k/cumm (0.0-0.7); Absolute Lymphocyte Count 2.32 k/cumm (1.2-3.4); Absolute Monocyte Count 0.59 k/cumm (0.11-0.7); Absolute Neutrophil Count 3.34 k/cumm (1.2-6.7); Basophils % 0.3; Eosinophils % 1.1; HCT 45.9 % (40.0-50.0); HGB 15.8 g/dL (13.5-17.5); Immature Grans % 0.2; Lymphocytes % 36.5; Mean Corp. HGB Concentration 34.4 g/dL (32.0-36.0); Mean Corpuscular Hemoglobin 31.2 pg (27.0-33.0); Mean Corpuscular Volume 90.7 fL (80-95); Mean Platelet Volume 10.7 fL (8.0-11.0); Monocytes % 9.3; Neutrophils % 52.6; Platelet Count 251 x1000/uL (130-400); RBC 5.06 m/cumm (4.50-6.00); White Blood Cell Count 6.35 k/cumm (4.4-10.8)
[2018-11-04] MEDS: Ketorolac 15 MG/ML VIAL IVP (12:23)
[2018-11-04 12:25] VITALS: BP 123/84; PULSE 60; RESP 16; TEMP 37; O2SAT 95
[2018-11-04 12:31] LABS: Bilirubin Negative (Negative); Blood Negative (Negative); Clarity Clear; Glucose Negative (Negative); Ketones Negative (Negative); Leukocyte Esterase Negative (Negative); Nitrite Negative (Negative); Specific Gravity 1.025 (1.005-1.025); Urobilinogen 0.2 EU/dL (Up TO 0.2)
[2018-11-04 12:32] LABS: ALT 47 U/L (12-78); AST 22 U/L (15-37); Albumin 4.3 g/dL (3.4-5.0); Alkaline Phosphatase 82 U/L (46-116); Anion Gap 8.9 mmol/L (3-11); BUN 15 mg/dL (7-18); Bilirubin, Total 0.6 mg/dL (0.2-1.0); CO2 29.1 mmol/L (21.0-32.0); CREATININE 0.93 mg/dL (0.70-1.30); Calcium 9.4 mg/dL (8.5-10.1); Chloride 102 mmol/L (98-107); Glucose 97 mg/dL (70-100); Lipase 102 U/L (73-393); Potassium 4.4 mmol/L (3.5-5.1); Sodium 140 mmol/L (136-145); Total Protein 8.4 g/dL (6.4-8.2)
== END 2018-11-04 13:25 | disposition home or self-care (01) ==
PROVIDERS: Emergency Provider Emergency Medicine; PCP Family Medicine
DX: R10.9 Unspecified abdominal pain (principal)
CPT/HCPCS: 36415; 80053; 83690; 96374; 99284; 74176; 81003; 85025; J1885

== ENCOUNTER 2018-11-26 14:48 | Emergency (ER) | payer MEDICAID, SELFPAY ==
[2018-11-26 15:11] VITALS: BP 116/78; PULSE 77; RESP 16; TEMP 36.7; O2SAT 96
[2018-11-26 17:08] LABS: Abs Immature Grans 0.01 k/cumm (0.0-0.09); Absolute Basophil Count 0.01 k/cumm (0.0-0.2); Absolute Eosinophil Count 0.07 k/cumm (0.0-0.7); Absolute Lymphocyte Count 3.11 k/cumm (1.2-3.4); Absolute Monocyte Count 0.62 k/cumm (0.11-0.7); Absolute Neutrophil Count 4.59 k/cumm (1.2-6.7); Basophils % 0.1; Eosinophils % 0.8; HCT 45.5 % (40.0-50.0); HGB 15.8 g/dL (13.5-17.5); Immature Grans % 0.1; Mean Corp. HGB Concentration 34.7 g/dL (32.0-36.0); Mean Corpuscular Hemoglobin 31.7 pg (27.0-33.0); Mean Corpuscular Volume 91.2 fL (80-95); Monocytes % 7.4; Neutrophils % 54.6; Platelet Count 245 x1000/uL (130-400); RBC 4.99 m/cumm (4.50-6.00); RBC Distribution Width 13.1 % (11.8-14.1); White Blood Cell Count 8.41 k/cumm (4.4-10.8)
[2018-11-26 17:19] LABS: ALT 51 U/L (12-78); AST 24 U/L (15-37); Albumin 4.3 g/dL (3.4-5.0); Alkaline Phosphatase 83 U/L (46-116); Anion Gap 8.7 mmol/L (3-11); BUN 14 mg/dL (7-18); Bilirubin, Total 0.6 mg/dL (0.2-1.0); CO2 29.3 mmol/L (21.0-32.0); CREATININE 1.07 mg/dL (0.70-1.30); Calcium 8.9 mg/dL (8.5-10.1); Chloride 102 mmol/L (98-107); Glucose 90 mg/dL (70-100); Potassium 3.6 mmol/L (3.5-5.1); Sodium 140 mmol/L (136-145); Total Protein 8.4 g/dL (6.4-8.2)
--- NOTE | 2018-11-26 17:50 | ED.GENADUL_ITS ---
Discharge Plan Disposition Patient Disposition: HOME Discharge Details Chief Complaint: Abd Prob Clinical Impression: Abdominal pain Primary Care Provider: Valencia Avina ED Provider: Kristian Astudillo Home Meds and New Rx's Prescriptions: Continued meclizine 25 MG tablet 25 - 50 mg PO DAILY PRNQty: 30 RF: 2 Citalopram Hydrobromide [Citalopram HBr] 40 MG tablet 40 mg PO DAILY Qty: 90 RF: 3 triamcinolone acetonide 15 GM cream 15 gm Topical BID PRNQty: 1 RF: 2 pantoprazole 20 mg tablet,delayed release (DR/EC) 20 mg PO DAILY Qty: 90 RF: 3 lidocaine 4 % adhesive patch,medicated 1 patch TP DAILY Qty: 6 RF: 2 lidocaine 3 % cream 1 applic TP TID PRN (Reason: pain) Qty: 28.35 RF: 0 acetaminophen [Tylenol] 325 mg Tablet 650 mg PO Q6H PRN PRNQty: 30 RF: 0 Lactobacillus acidophilus [Acidophilus] Capsule 1 cap PO HS RF: 0 No Action pravastatin 20 mg tablet 20 mg PO DAILY Qty: 90 RF: 4 Discharge Instructions Instructions: Abdominal Pain (ED) Additional Instructions: Please contact your primary care physician to arrange follow-up. Return to the ER for any worsening or new concerning symptoms. Referrals: Valencia Avina MD [Primary Care Provider] - Discharge Data Discharge Date/Time-TO BE ENTERED AT DEPARTURE: 11/26/18 18:21 Medical Decision Making 44yo m s/p remote cholescystectomy, here with abdominal pain. Well appearing, minimal right upper abdominal tenderness, with no signs of peritoneal inflammation. No hernia appreciated on exam. Nonttp RLQ. Afebrile and vitals signs within normal limits. Repeast labs today reviewed: nondiagnostic. No leukocytosis. Normal electrolytes. Normal kidney function. LFTs are normal. I obtained and reviewed CT abdomen imaging report from recent prior ED visit 11/04/17: IMPRESSION: 1. No evidence of an acute abdomen. 2. No evidence of nephrolithiasis or obstructive uropathy. 3. Status post cholecystectomy. No biliary ductal dilatation. Normal appendix. 4. Fatty infiltration of the liver. I discussed results of labs with the patient. We discussed my thoughts that exam and lab workup is not consistent with acute surgical process. We reviewed prior imaging. We discussed repeat imaging - he declines after discussion of risk benefit. I do feel that outpatient follow-up is warranted and explained that should symptoms worsen or should he develop new concerning symptoms, that he should return immediately to the ED. He plans to follow-up with PCP. Please note that completion of documentation of this visit was unintentionally delayed. HPI General Mode of arrival: ambulatory . Date/Time Provider Initiated Documentation: 11/26/18 16:12 . Limitations to Documentation: no limitations . Information obtained by: patient . HPI Narrative: 43yo m here with chief complaint of abdominal pain. Patient notes pain in right lateral abdomen for past 1 week. Pain is moderate to severe. Pain waxes and wanes. No associated fever. No nausea, vomiting or diarrhea. No dysuria or hematuria. Patient notes that he was here in the ED a couple weeks ago for similar pain, had diagnostic testing that was negative and pain was attributed to stretched muscle per the patient. Related Data Home Medications Medication Instructions Recorded Confirmed meclizine 25 - 50 mg PO DAILY PRN #30 tab-cap 09/08/17 12/04/18 triamcinolone acetonide 15 gm TOPICAL BID PRN #1 script 01/28/18 12/04/18 acetaminophen [Tylenol] 650 mg PO Q6H PRN PRN #30 tab 06/04/18 12/04/18 pantoprazole 20 mg tablet,delayed 20 mg PO DAILY #90 tab-cap 07/20/18 12/04/18 release Lactobacillus acidophilus 1 cap PO HS 10/09/18 12/04/18 [Acidophilus] lidocaine 4 % topical patch 1 patch TP DAILY #6 each 11/09/18 12/04/18 lidocaine 3 % topical cream 1 applic TP TID PRN #28.35 gm 11/11/18 12/04/18 pravastatin 20 mg tablet 20 mg PO DAILY #90 tab-cap 12/02/18 12/04/18 Previous Rx's Medication Instructions Recorded acetaminophen [Tylenol] 650 mg PO Q6H PRN PRN #30 tab 06/04/18 pantoprazole 20 mg tablet,delayed 20 mg PO DAILY #90 tab-cap 07/20/18 release lidocaine 4 % topical patch 1 patch TP DAILY #6 each 11/09/18 lidocaine 3 % topical cream 1 applic TP TID PRN #28.35 gm 11/11/18 pravastatin 20 mg tablet 20 mg PO DAILY #90 tab-cap 12/02/18 Allergies Allergy/AdvReac Type Severity Reaction Status Date / Time No Known Drug Allergies Allergy Verified 11/26/18 15:13 General Stated Complaint: Abd Prob DARI: 3 Review of Systems Review of Systems All systems reviewed & are unremarkable except as noted in HPI and below PFSH Medical History Depression (Chronic) Fatty liver (Chronic) GERD (gastroesophageal reflux disease) (Chronic) Hypercholesterolemia (Chronic) Surgical History S/P colonoscopy (Inactive ~10/13/18) S/P cholecystectomy (Inactive ~06/2018) Vasectomy (Inactive) repair of incarcerated umbilical hernia (Inactive 04/16/17) Family History Father Diabetes Essential hypertension Mother Essential hypertension Hyperlipidemia Social History Smoking/Tobacco Use Status: Former Tobacco Use Alcohol Intake: never Drug use: Daily Substance use type: marijuana Do you feel safe in your relationship?: Yes Exam Const General: cooperative and no acute distress HENMT Head: normocephalic Mouth: moist mucous membranes Eyes Conjunctivae: normal conjunctivae Sclera: normal sclerae Resp Auscultation: clear to auscultation bilaterally, no rales, no rhonchi and no wheezes Cardio Jugular venous pressure: no JVD Rate: regular rate and not tachycardic Rhythm: regular rhythm GI Palpation: soft, not firm, no guarding, no masses, not rigid and tender (mild ) in the RUQ; not at McBurney's point, Livingston's sign negative and with no rebound tenderness Auscultation: normal bowel sounds Skin General skin exam: no rashes or lesions noted Neuro General: alert, awake and tone normal Extrem General: no edema Psych Appearance: grossly normal Course Vital Signs Temperature 36.7 C 11/26/18 15:11 Pulse 77 11/26/18 15:11 Respiratory Rate 16 11/26/18 15:11 Blood Pressure 116/78 11/26/18 15:11 Pulse Oximetry 96 11/26/18 15:11 Temperature 36.7 C 11/26/18 15:11 Temperature Source Skin 11/26/18 15:11 Pulse 77 11/26/18 15:11 Respiratory Rate 16 11/26/18 15:11 Respiratory Effort Non-Labored 11/26/18 15:11 Blood Pressure 116/78 11/26/18 15:11 Blood Pressure Position Sitting 11/26/18 15:11 Pulse Oximetry 96 11/26/18 15:11 Oxygen Delivery Method Room Air 11/26/18 15:11 Oxygen Flow Rate 0 11/26/18 15:11 Pain Level 6 11/26/18 15:11
[2018-11-26 17:56] VITALS: TEMP 36.7
[2018-11-26] MEDS: Acetaminophen 325 MG TAB 650 MG PO (17:56)
[2018-11-26] MEDS: Ibuprofen 600 MG TAB PO (17:57)
[2018-11-26 17:59] VITALS: BP 115/77; PULSE 72; RESP 16; TEMP 36.9; O2SAT 98
== END 2018-11-26 18:21 | disposition home or self-care (01) ==
PROVIDERS: Emergency Provider Student in an Organized Health Care Education/Training Program; PCP Family Medicine
DX: R10.9 Unspecified abdominal pain (principal)
CPT/HCPCS: 36415; 80053; 99282; 85025

== ENCOUNTER 2019-08-02 07:00 | Outpatient (CLI) | payer MEDICAID, SELFPAY ==
[2019-08-02 12:45] LABS: ALT 97 U/L (16-63); AST 44 U/L (15-37); Albumin 4.2 g/dL (3.4-5.0); Alkaline Phosphatase 70 U/L (46-116); BUN 13 mg/dL (7-18); Bilirubin, Total 0.3 mg/dL (0.2-1.0); CREATININE 0.76 mg/dL (0.70-1.30); Calcium 9.1 mg/dL (8.5-10.1); Chloride 103 mmol/L (98-107); Glucose 108 mg/dL (74-106); Potassium 4.4 mmol/L (3.5-5.1); Sodium 141 mmol/L (136-145); Total Protein 7.7 g/dL (6.4-8.2)
[2019-08-02 13:00] LABS: Calculated LDL 175 mg/dL; Cholesterol 288 mg/dL (<200); HDL Cholesterol 54 mg/dL (40-60); Triglyceride 299 mg/dL (<150)
== END 2019-08-02 07:20 ==
PROVIDERS: PCP Family Medicine; Visit Provider Family Medicine
DX: E78.5 Hyperlipidemia, unspecified (principal); E83.42 Hypomagnesemia
CPT/HCPCS: 36415; 80053; 80061; 83735

== ENCOUNTER 2019-08-11 10:34 | Emergency (ER) | payer MEDICAID, SELFPAY ==
[2019-08-11 10:36] VITALS: BP 155/84; PULSE 92; RESP 18; TEMP 36.7; O2SAT 98
--- NOTE | 2019-08-11 10:59 | W.ED.GENAD ---
Discharge Plan Disposition Patient Disposition: HOME Condition: Stable Discharge Details Chief Complaint: RespSymp Clinical Impression: Cough Primary Care Provider: Valencia Avina ED Provider: Lyn Astudillo Home Meds and New Rx's Prescriptions: Continued tamsulosin 0.4 mg capsule 0.8 mg PO DAILY Qty: 60 RF: 3 omeprazole 20 mg capsule,delayed release(DR/EC) 20 mg PO DAILY Qty: 90 RF: 2 meclizine 25 mg tablet 25 - 50 mg PO DAILY PRN (Reason: motion sickness) Qty: 30 RF: 2 acetaminophen [Tylenol] 325 mg Tablet 650 mg PO Q6H PRN PRNQty: 30 RF: 0 No Action divalproex [Depakote] 250 mg Tablet,Delayed Release (Dr/Ec) 250 mg PO DAILY RF: 0 cyclobenzaprine 10 mg tablet 10 mg PO HS Qty: 14 RF: 0 ibuprofen 600 mg tablet 600 mg PO Q8H PRN (Reason: pain) Qty: 20 RF: 0 Aspercreme (lidocaine) 4 % adhesive patch,medicated 1 patch TP DAILY PRN (Reason: pain) Qty: 1 RF: 0 Discharge Instructions Instructions: Viral Syndrome (ED), Acute Cough (ED) Additional Instructions: Please return immediately to the emergency department if you develop any new or worsening symptoms, if your condition does not improve as expected, or if you become otherwise concerned. It is extremely important that you call soon as possible to make an appointment to be seen in follow-up for this visit by your primary care doctor. Referrals: Valencia Avina MD [Primary Care Provider] - Discharge Data Discharge Date/Time-TO BE ENTERED AT DEPARTURE: 08/11/19 12:40 Medical Decision Making Huber Masters is a 44-year-old man with a history of hyperlipidemia, irritable bowel syndrome, GERD who presented to the emergency department with 1 week of sore throat, productive cough, generalized body aches, and intermittent headache. On exam patient is well and nontoxic appearing. Patient appears well-hydrated. Benign exam of the oropharynx. Full range of motion of the neck, no meningismus. Benign cardiopulmonary exam. Concern for influenza versus other viral illness, less likely pneumonia. Exam/history is not consistent with sepsis, emergent metabolic/electrolyte derangement, ACS, meningitis, other emergent intracranial process. Plan for chest x-ray, flu swab. Chest x-ray negative. Flu swab negative. I had a lengthy discussion with Patient regarding return to emergency department precautions, home care, and importance of outpatient follow-up. Pt verbalizes understanding of the plan and is amenable. Patient discharged to home with clear plan for outpatient follow-up. All questions were answered. Disposition decision was made weighing the risks and benefits of hospitalization versus outpatient treatment, the risk for further decompensation, and the patient's wishes. Medical Records Medical records reviewed: Yes I reviewed the patient's medical records. Imaging Data Radiologic Study: Attestation: I personally reviewed and interpreted this imaging study as follows: Radiologist's impression: EXAM: XR CHEST 2V PA LATERAL INDICATION: cough. COMPARISON: XR CHEST 2V PA LATERAL from 05/30/2018 TECHNIQUE: 2D digital imaging was performed. FINDINGS: The heart size and pulmonary vasculature within normal limits. There is atelectasis in the left lung base. No consolidating infiltrates are seen. No pleural effusions or pneumothoraces are identified. The bones appear intact. There are surgical clips in the right upper quadrant of the abdomen. IMPRESSION: No acute pulmonary process. Lab Data Lab results reviewed: Yes I reviewed the patient's lab results. Labs: 08/11/19 11:16 Nasopharynx Influenza Types A,B Antigen - Final HPI General Mode of arrival: ambulatory. Date/Time Provider Initiated Documentation: 08/11/19 10:54. Limitations to Documentation: no limitations. Information obtained by: patient, RN notes reviewed and old records reviewed. HPI Narrative: Huber Masters is a 44 y/o man with history of hyperlipidemia, irritable bowel syndrome, GERD presenting to the emergency department with body aches, cough, sore throat, headache. Patient reports that 1 week ago he developed a sore throat, intermittent cough, and body aches. He has also had intermittent headache and several episodes of vomiting. Last episode of vomiting was 2 or 3 days ago. Patient reports that he was previously well in his usual state of health. He states that he has been eating and drinking as usual throughout the course of the illness. He is unsure if he has had fevers. He reports headache (intermittent, not the worst of his life, not currently occurring) and generalized body aches. He denies any other pain, shortness of breath, rash, numbness, weakness. 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 Has been able to take care of himself at home. Has been eating somewhat less than usual but has been drinking fluids without issue. Related Data Home Medications Medication Instructions Recorded Confirmed acetaminophen [Tylenol] 650 mg PO Q6H PRN PRN #30 tab 06/04/18 08/19/19 meclizine 25 mg tablet 25 - 50 mg PO DAILY PRN #30 tab-cap 08/02/19 08/19/19 omeprazole 20 mg capsule,delayed 20 mg PO DAILY #90 cap 08/02/19 08/19/19 release tamsulosin 0.4 mg capsule 0.8 mg PO DAILY #60 cap 08/02/19 08/19/19 cyclobenzaprine 10 mg PO HS #14 tab 08/19/19 divalproex [Depakote] 250 mg PO DAILY 08/19/19 08/19/19 ibuprofen 600 mg PO Q8H PRN #20 tab 08/19/19 lidocaine [Aspercreme (lidocaine)] 1 patch TP DAILY PRN #1 each 08/19/19 Previous Rx's Medication Instructions Recorded acetaminophen [Tylenol] 650 mg PO Q6H PRN PRN #30 tab 06/04/18 meclizine 25 mg tablet 25 - 50 mg PO DAILY PRN #30 tab-cap 08/02/19 omeprazole 20 mg capsule,delayed 20 mg PO DAILY #90 cap 08/02/19 release tamsulosin 0.4 mg capsule 0.8 mg PO DAILY #60 cap 08/02/19 cyclobenzaprine 10 mg PO HS #14 tab 08/19/19 ibuprofen 600 mg PO Q8H PRN #20 tab 08/19/19 lidocaine [Aspercreme (lidocaine)] 1 patch TP DAILY PRN #1 each 08/19/19 Allergies Allergy/AdvReac Type Severity Reaction Status Date / Time cephalexin Allergy Unverified 08/19/19 15:35 No Known Drug Allergies Allergy Verified 08/19/19 15:35 General Stated Complaint: RespSymp DARI: 4 Review of Systems Narrative: Constitutional: Reports possible subjective fevers Eyes: denies eye pain ENT: denies ear pain, dental pain, reports sore throat Cardiovascular: denies chest pain Respiratory: denies SOB, reports cough GI: denies abdominal pain, diarrhea, reports vomiting : denies flank pain MSK: denies back pain, neck pain, reports generalized body aches Skin: denies rash Neuro: denies numbness, weakness, reports headaches [facility] Medical History BPH (benign prostatic hyperplasia) (Chronic) Depression (Chronic) Fatty liver (Chronic) GERD (gastroesophageal reflux disease) (Chronic) Hypercholesterolemia (Chronic) Surgical History repair of incarcerated umbilical hernia (Inactive 04/16/17) S/P cholecystectomy (Inactive ~06/2018) S/P colonoscopy (Inactive ~10/13/18) Vasectomy (Inactive) Social History Smoking/Tobacco Use Status: Former Tobacco Use Alcohol Intake: never Drug use: Daily Substance use type: marijuana Do you feel safe in your relationship?: Yes Exam Narrative Exam Narrative: Constitutional: well and [id number], pleasant, conversing normally HENT: head atraumatic/normocephalic/normal inspection, mucous membranes moist, normal exam of the oropharynx without lesion, edema, erythema Eyes: conjunctiva normal, sclera normal, pupils 3mm b/l Neck: no stridor, full painless ROM, supple, trachea midline, negative Kernig/Brudzinski signs Chest: normal inspection Resp: normal work of breathing, LCTAB Cardio: normal rate, normal rhythm, no murmur appreciated Back: normal inspection, no rash Skin: warm, dry, normal color, no rash Neuro: alert, not altered, grossly non-focal, normal tone Ext: no edema, no posterior calf tenderness to palpation Psych: normal mood, normal affect, normal behavior Course Vital Signs Vital signs: Vital Signs Temperature 36.7 C 08/11/19 10:36 Pulse 92 H 08/11/19 10:36 Respiratory Rate 18 08/11/19 10:36 Blood Pressure 155/84 H 08/11/19 10:36 Pulse Oximetry 98 08/11/19 10:36 Temperature 36.7 C 08/11/19 10:36 Temperature Source Skin 08/11/19 10:36 Pulse 92 H 08/11/19 10:36 Respiratory Rate 18 08/11/19 10:36 Respiratory Effort 08/11/19 10:41 Blood Pressure 155/84 H 08/11/19 10:36 Blood Pressure Position Sitting 08/11/19 10:36 Pulse Oximetry 98 08/11/19 10:36 Oxygen Delivery Method Room Air 08/11/19 10:36 Oxygen Flow Rate 0 08/11/19 10:36 Pain Level 8 08/11/19 10:36
--- NOTE | 2019-08-11 11:22 | DI.RAD_ITS ---
EXAM: XR CHEST 2V PA LATERAL INDICATION: cough. COMPARISON: XR CHEST 2V PA LATERAL from 05/30/2018 TECHNIQUE: 2D digital imaging was performed. FINDINGS: The heart size and pulmonary vasculature within normal limits. There is atelectasis in the left lung base. No consolidating infiltrates are seen. No pleural effusions or pneumothoraces are identified . The bones appear intact. There are surgical clips in the right upper quadrant of the abdomen. IMPRESSION: No acute pulmonary process.
== END 2019-08-11 12:40 | disposition home or self-care (01) ==
PROVIDERS: Emergency Provider Student in an Organized Health Care Education/Training Program; PCP Family Medicine
DX: R05 Cough (principal); R51 Headache; M79.10 Myalgia, unspecified site; B34.9 Viral infection, unspecified
CPT/HCPCS: 87449; 99283; 71046

== ENCOUNTER 2019-08-19 15:24 | Emergency (ER) | payer MEDICAID, SELFPAY ==
[2019-08-19 15:32] VITALS: BP 131/76; PULSE 91; RESP 16; TEMP 36.6; O2SAT 96
--- NOTE | 2019-08-19 16:23 | ED.GENADUL_ITS ---
Discharge Plan Disposition Patient Disposition: HOME Condition: Stable Discharge Details Chief Complaint: Nk/Back Pain Clinical Impression: Lower back pain Primary Care Provider: Valencia Avina ED Provider: Braxton Calderon Home Meds and New Rx's Prescriptions: New cyclobenzaprine 10 mg tablet 10 mg PO HS Qty: 14 RF: 0 ibuprofen 600 mg tablet 600 mg PO Q8H PRN (Reason: pain) Qty: 20 RF: 0 Aspercreme (lidocaine) 4 % adhesive patch,medicated 1 patch TP DAILY PRN (Reason: pain) Qty: 1 RF: 0 Continued tamsulosin 0.4 mg capsule 0.8 mg PO DAILY Qty: 60 RF: 3 omeprazole 20 mg capsule,delayed release(DR/EC) 20 mg PO DAILY Qty: 90 RF: 2 meclizine 25 mg tablet 25 - 50 mg PO DAILY PRN (Reason: motion sickness) Qty: 30 RF: 2 divalproex [Depakote] 250 mg Tablet,Delayed Release (Dr/Ec) 250 mg PO DAILY RF: 0 acetaminophen [Tylenol] 325 mg Tablet 650 mg PO Q6H PRN PRNQty: 30 RF: 0 Discharge Instructions Instructions: Low Back Strain (ED) Additional Instructions: Please return to the emergency department immediately for increasing pain inability to urinate for urinary incontinence numbness change in sensation or other concern. Please follow-up with your primary care physician soon as possible take your prescriptions as directed. Thank you for using [facility] Referrals: Saniya Gan [Emergency Nurse] - Medical Decision Making 44-year-old male with acute on chronic back pain no red flags plan analgesia r est primary care follow-up and strict return. HPI 44-year-old male fell backwards on ice approximately 1 week ago with right lower back pain since then patient history of intermittent back pain over the years no urinary incontinence no fever no chills no IVDU no diabetes no immunosuppression no change in sensation difficulty walking. No shortness of breath chest pain nausea vomiting diarrhea loss conscious fever chills. Pain is sharp aching radiates down posterior right leg. General Date/Time Provider Initiated Documentation: 08/19/19 15:59 . Related Data Home Medications Medication Instructions Recorded Confirmed acetaminophen [Tylenol] 650 mg PO Q6H PRN PRN #30 tab 06/04/18 08/19/19 meclizine 25 mg tablet 25 - 50 mg PO DAILY PRN #30 tab-cap 08/02/19 08/19/19 omeprazole 20 mg capsule,delayed 20 mg PO DAILY #90 cap 08/02/19 08/19/19 release tamsulosin 0.4 mg capsule 0.8 mg PO DAILY #60 cap 08/02/19 08/19/19 cyclobenzaprine 10 mg PO HS #14 tab 08/19/19 divalproex [Depakote] 250 mg PO DAILY 08/19/19 08/19/19 ibuprofen 600 mg PO Q8H PRN #20 tab 08/19/19 lidocaine [Aspercreme (lidocaine)] 1 patch TP DAILY PRN #1 each 08/19/19 Previous Rx's Medication Instructions Recorded acetaminophen [Tylenol] 650 mg PO Q6H PRN PRN #30 tab 06/04/18 meclizine 25 mg tablet 25 - 50 mg PO DAILY PRN #30 tab-cap 08/02/19 omeprazole 20 mg capsule,delayed 20 mg PO DAILY #90 cap 08/02/19 release tamsulosin 0.4 mg capsule 0.8 mg PO DAILY #60 cap 08/02/19 cyclobenzaprine 10 mg PO HS #14 tab 08/19/19 ibuprofen 600 mg PO Q8H PRN #20 tab 08/19/19 lidocaine [Aspercreme (lidocaine)] 1 patch TP DAILY PRN #1 each 08/19/19 Allergies Allergy/AdvReac Type Severity Reaction Status Date / Time cephalexin Allergy Unverified 08/19/19 15:35 No Known Drug Allergies Allergy Verified 08/19/19 15:35 General Stated Complaint: Nk/Back Pain DARI: 4 Review of Systems All systems reviewed & are unremarkable except as noted in HPI and below PFSH Surgical History repair of incarcerated umbilical hernia (Inactive 04/16/17) S/P cholecystectomy (Inactive ~06/2018) S/P colonoscopy (Inactive ~10/13/18) Vasectomy (Inactive) Social History Smoking/Tobacco Use Status: Former Tobacco Use Alcohol Intake: never Drug use: Daily Substance use type: marijuana Do you feel safe in your relationship?: Yes Exam Narrative Exam Narrative: Pulse oximetry reviewed by me and is normal [] Constitutional: Pt is in no acute distress. pt is well appearing. oriented to person, place, and time. Eyes: conjunctivae are normal. Pupils are equal, round, and reactive to light. No scleral icterus. extraocular muscles are intact Ears/Nose/Mouth/Throat: mucus membranes are moist. Musculoskeletal: neck is supple. normal range of motion in all extremities. Cardiovascular: Normal rate and rhythm. No lower extremity edema [] Respiratory: effort is normal . pt exhibits no stridor or respiratory distress. [] GastrointestinaI: abdomen soft, +BS, nontender, -rebound, -guarding. Lower back with mild tenderness to palpation and muscle spasm to the right lateral back normal patellar reflexes normal distal neurovascular exam normal plantar flexion extension normal steady gait CT and L-spine without tender to palpation step- offs or deformity Neurological: alert and oriented to person, place, and time. he has normal strength, no tremor. Skin: Skin is warm and dry. he is not diaphoretic. Distal perfusion in tact, warm extremities, cap refill ? 2 seconds. Hem/Lymph/Imm: No cervical LAD, no goiter, no conjunctival pallor Psych: normal mood and affect. behavior is normal Triage and nurse notes reviewed.[] Course Vital Signs Vital signs: Vital Signs Temperature 36.6 C 08/19/19 15:32 Pulse 91 H 08/19/19 15:32 Respiratory Rate 16 08/19/19 15:32 Blood Pressure 131/76 08/19/19 15:32 Pulse Oximetry 96 08/19/19 15:32 Temperature 36.6 C 08/19/19 15:32 Temperature Source Skin 08/19/19 15:32 Pulse 91 H 08/19/19 15:32 Respiratory Rate 16 08/19/19 15:32 Respiratory Effort Non-Labored 08/19/19 15:32 Blood Pressure 131/76 08/19/19 15:32 Blood Pressure Position Sitting 08/19/19 15:32 Pulse Oximetry 96 08/19/19 15:32 Oxygen Delivery Method Room Air 08/19/19 15:32 Oxygen Flow Rate 0 08/19/19 15:32 Pain Level 8 08/19/19 15:32
[2019-08-19] MEDS: Cyclobenzaprine 10 MG TAB PO (16:31)
[2019-08-19] MEDS: Lidocaine 5% Patch 1 PATCH TP (16:31)
== END 2019-08-19 16:35 | disposition home or self-care (01) ==
PROVIDERS: Emergency Provider Emergency Medicine; PCP Family Medicine
DX: M54.5 Low back pain (principal); G89.29 Other chronic pain; W00.0XXA Fall on same level due to ice and snow, initial encounter
CPT/HCPCS: 99283

== ENCOUNTER 2019-12-16 17:12 | Inpatient (IN) | payer MEDICAID, SELFPAY ==
[2019-12-16] VITALS (16 sets, daily range): BP systolic 125–144; BP diastolic 75–87; PULSE 78–89; RESP 16; TEMP 37.2–37.4; O2SAT 91–95
--- NOTE | 2019-12-16 17:21 | W.ED.GENAD ---
Discharge Plan Disposition Patient Disposition: [facility] INPATIENT Condition: Stable Discharge Details Chief Complaint: Abd Prob Clinical Impression: Abdominal pain, Thrombosis of left renal vein Primary Care Provider: Valencia Avina ED Provider: Rip Cheek Home Meds and New Rx's Prescriptions: No Action divalproex [Depakote] 250 mg tablet,delayed release (DR/EC) 250 mg PO BID Qty: 60 RF: 0 tamsulosin 0.4 mg capsule 0.8 mg PO DAILY Qty: 180 RF: 4 omeprazole 20 mg capsule,delayed release(DR/EC) 20 mg PO DAILY Qty: 90 RF: 4 nystatin 100,000 unit/mL suspension 4 ml PO QID Qty: 160 RF: 0 pravastatin 20 mg tablet 20 mg PO DAILY Qty: 90 RF: 4 meclizine 25 mg tablet 25 - 50 mg PO DAILY PRN (Reason: motion sickness) Qty: 30 RF: 2 cyclobenzaprine 10 mg tablet 10 mg PO HS Qty: 14 RF: 0 ibuprofen 600 mg tablet 600 mg PO Q8H PRN (Reason: pain) Qty: 20 RF: 0 lidocaine [Aspercreme (lidocaine)] 4 % adhesive patch,medicated 1 patch TP DAILY PRN (Reason: pain) Qty: 1 RF: 0 sertraline 50 mg Tablet 50 mg PO DAILY RF: 0 acetaminophen [Tylenol] 325 mg Tablet 650 mg PO Q6H PRN PRNQty: 30 RF: 0 Medical Decision Making 44 yo male with hx of bph, hld, adhd, IBS, who comes in with left lower abdominal pain for a day with some nausea and diarrhea. Denies having pain like this in the past and denies any other prior surgeries. HE denies fevers or chest pain or recent travel or sick contacts. He has tenderness with palpation and no guarding in llq. No upper abdominal tenderness. No testicle tenderness or swelling. Will obtain labs and imaging to eval for entities such as pancreatitis, diverticulitis and colitis. labs unremarkable, awaiting UA. CT shows findings of pancreatitis though has normal lipase and also noted is a thrombosis of left renal vein extending from left renal pelvis into the IVC. Pain has improved, HD Stable, will consult with vascular surgery at [facility]. spoke with [facility] vascular surgery fellow Dr. Dueñas who did not feel patient required transfer, recommended anticoagulation. Will admit for pain control and anticoagulation and observation Differential Diagnosis Differential Diagnosis: diverticulitis, IBS, pancreatitis Medical Records Medical records reviewed: Yes I reviewed the patient's medical records. Imaging Data Radiologic Study: Attestation: I personally reviewed and interpreted this imaging study as follows: Imaging: CT Scan Radiologist's impression: IMPRESSION: 1. Acute pancreatitis as above. 2. Thrombosis of the left renal vein. The thrombosis extends from the left renal pelvis into the IVC. 3. Fatty infiltration of the liver. Low-attenuation lesion within the liver can be re-evaluated with CT scan of the liver utilizing hemangioma protocol. 4. Stable simple left midpole renal cyst. 5. Status post cholecystectomy. Lab Data Lab results reviewed: Yes I reviewed the patient's lab results. HPI General Mode of arrival: ambulatory. Date/Time Provider Initiated Documentation: 12/16/19 17:12. Limitations to Documentation: no limitations. Information obtained by: patient. History of Present Illness 44 year old M presents to the emergency department with the chief complaint of abdominal pain, described as moderate, and is localized to the abdomen. Patient started experiencing this day(s) (2) and it has been constant. No relieving factors improve symptom(s), No exacerbating factors reported . Patient did receive the following treatments prior to arrival, none Related Data Home Medications Medication Instructions Recorded Confirmed acetaminophen [Tylenol] 650 mg PO Q6H PRN PRN #30 tab 06/04/18 12/16/19 meclizine 25 mg tablet 25 - 50 mg PO DAILY PRN #30 tab-cap 08/02/19 12/16/19 cyclobenzaprine 10 mg PO HS #14 tab 08/19/19 12/16/19 ibuprofen 600 mg PO Q8H PRN #20 tab 08/19/19 12/16/19 lidocaine [Aspercreme (lidocaine)] 1 patch TP DAILY PRN #1 each 08/19/19 12/16/19 divalproex 250 mg tablet,delayed 250 mg PO BID #60 tab 11/29/19 12/16/19 release nystatin 100,000 unit/mL oral 4 ml PO QID #160 ml 11/29/19 12/16/19 suspension omeprazole 20 mg capsule,delayed 20 mg PO DAILY #90 cap 11/29/19 12/16/19 release pravastatin 20 mg tablet 20 mg PO DAILY #90 tab 11/29/19 12/16/19 tamsulosin 0.4 mg capsule 0.8 mg PO DAILY #180 cap 11/29/19 12/16/19 sertraline 50 mg PO DAILY 12/16/19 12/16/19 Previous Rx's Medication Instructions Recorded acetaminophen [Tylenol] 650 mg PO Q6H PRN PRN #30 tab 06/04/18 meclizine 25 mg tablet 25 - 50 mg PO DAILY PRN #30 tab-cap 08/02/19 cyclobenzaprine 10 mg PO HS #14 tab 08/19/19 ibuprofen 600 mg PO Q8H PRN #20 tab 08/19/19 lidocaine [Aspercreme (lidocaine)] 1 patch TP DAILY PRN #1 each 08/19/19 divalproex 250 mg tablet,delayed 250 mg PO BID #60 tab 11/29/19 release nystatin 100,000 unit/mL oral 4 ml PO QID #160 ml 11/29/19 suspension omeprazole 20 mg capsule,delayed 20 mg PO DAILY #90 cap 11/29/19 release pravastatin 20 mg tablet 20 mg PO DAILY #90 tab 11/29/19 tamsulosin 0.4 mg capsule 0.8 mg PO DAILY #180 cap 11/29/19 Allergies Allergy/AdvReac Type Severity Reaction Status Date / Time cephalexin Allergy Unverified 12/16/19 17:23 No Known Drug Allergies Allergy Verified 11/10/19 15:54 General Stated Complaint: Abd Prob DARI: 3 Review of Systems All systems reviewed & are unremarkable except as noted in HPI and below Constitutional Constitutional: Denies chills and Denies fever(s) Cardiovascular Cardiovascular: Denies chest pain and Denies dyspnea Respiratory Respiratory: Denies cough and Denies dyspnea Gastrointestinal Gastrointestinal: Denies vomiting Musculoskeletal Musculoskeletal: Denies joint swelling Psychiatric Psychiatric: Denies depression [facility] Social History Smoking/Tobacco Use Status: Former Tobacco Use Alcohol Intake: never Drug use: Daily Substance use type: marijuana Do you feel safe at home: Yes Do you feel safe in your relationship?: Yes Exam Const General: no acute distress Orientation: alert HENMT Head: normal to inspection Ears: external ears normal General nose exam: external nose normal Mouth: moist mucous membranes Eyes General: appearance normal, both eyes and all related structures Neck Neck: normal visual inspection Resp Effort & Inspection: normal respiratory effort and able to speak in complete sentences Cardio Rate: regular rate GI Palpation: soft Skin General skin exam: no rashes or lesions noted Neuro General: patient alert and patient oriented x3 Extrem General: normal to inspection Psych Mental Status: mental status grossly normal Course Vital Signs Vital signs: Vital Signs Temperature 37.2 C 12/16/19 17:16 Pulse 84 12/16/19 17:16 Blood Pressure 135/87 12/16/19 17:16 Pulse Oximetry 95 12/16/19 17:16 Temperature 37.2 C 12/16/19 17:16 Temperature Source Temporal Artery Scan 12/16/19 17:16 Pulse 84 12/16/19 17:16 Respiratory Effort Non-Labored 12/16/19 17:20 Blood Pressure 135/87 12/16/19 17:16 Blood Pressure Position Sitting 12/16/19 17:16 Pulse Oximetry 95 12/16/19 17:16 Oxygen Delivery Method Room Air 12/16/19 17:16 Oxygen Flow Rate 0 12/16/19 17:16 Pain Level 7 12/16/19 17:16
[2019-12-16 17:54] LABS: Abs Immature Grans 0.03 k/cumm (0.0-0.09); Absolute Basophil Count 0.01 k/cumm (0.0-0.2); Absolute Eosinophil Count 0.08 k/cumm (0.0-0.7); Absolute Lymphocyte Count 1.88 k/cumm (1.2-3.4); Absolute Monocyte Count 0.97 k/cumm (0.11-0.7); Absolute Neutrophil Count 6.76 k/cumm (1.2-6.7); Basophils % 0.1; Eosinophils % 0.8; HCT 43.7 % (40.0-50.0); HGB 15.1 g/dL (13.5-17.5); Immature Grans % 0.3 %; Lymphocytes % 19.3; Mean Corp. HGB Concentration 34.6 g/dL (32.0-36.0); Mean Corpuscular Volume 95.6 fL (80-95); Mean Platelet Volume 10.2 fL (8.0-11.0); Neutrophils % 69.5; Platelet Count 183 x1000/uL (130-400); RBC 4.57 m/cumm (4.50-6.00); RBC Distribution Width 13.1 % (11.8-14.1); White Blood Cell Count 9.73 k/cumm (4.4-10.8)
[2019-12-16] MEDS: Normal Saline - Diluent 50 ML VIAL IV (17:59)
[2019-12-16] MEDS: Omnipaque 350 MG/ML 100 ML BTL IJ (18:00)
--- NOTE | 2019-12-16 18:00 | DI.CT_ITS ---
EXAM: CT ABDOMEN PELVIS W CLINICAL HISTORY: left lower abdominal pain TECHNIQUE: Imaging Protocol: Axial computed tomography images with coronal and sagittal reformatted images were created and reviewed CONTRAST MATERIAL: Intravenous: Omnipaque 350 Contrast volume:100 mL Oral: No COMPARISON: ABD PELVIS WITH CONTRAST from 04/02/2017 CT renal colic wo from 11/04/2018 FINDINGS: ABDOMEN: Lung Bases: Dependent atelectasis and/or scarring in the lung bases. Liver: There is diffuse fatty infiltration of the liver. There is a 2.6 x 2.5 cm hypodense lesion in the inferior aspect of the right lobe of the liver. Portal, Superior Mesenteric, and Splenic Veins: Unremarkable. Gallbladder and Biliary Tract: Status post cholecystectomy. No biliary ductal dilatation. Pancreas: Normal density and no abnormal calcifications are present. There is stranding seen around the tail of the pancreas. A small amount of fluid is seen extending into the left pericolic gutter. Spleen: Normal. Adrenals: No masses seen. Kidneys: The right kidney is unremarkable save for a few tiny hypodensities. They are too small for further characterization but likely reflect small cysts. The left kidney is mildly enlarged with del ayed enhancement. There are simple cysts present. The largest measures 3.2 cm. The left renal vein is enlarged and contains a thrombus extending from the left renal hilum into the inferior vena cava. Enlarged collateral veins are seen in the perinephric space. No evidence of obstructive uropathy. Abdominal Aorta: Abdominal portion non-dilated. Mild atherosclerosis. Bowel: No obstruction or bowel wall thickening. No evidence of acute appendicitis. Peritoneal Cavity: No ascites, collection or mesenteric inflammatory response. Lymph Nodes: Within normal limits. Bones: Unremarkable. Soft Tissues: Unremarkable. PELVIS: Bladder: Symmetric distention, no gross wall thickening. Reproductive Organs: Unremarkable as visualized. Lymph Nodes: Within normal limits. Bones: Within normal limits. IMPRESSION: 1. Left renal vein thrombus. The thrombus extends from the left renal pelvis into the IVC. 2. Inflammatory stranding seen around the tail of the pancreas suspicious for acute pancreatitis. 3. Low-density lesion in the inferior aspect of the right lobe of the liver. This should be evaluate d with a CT scan of the liver utilizing the hemangioma protocol. RADIATION DOSE DELIVERED: DATA REPOSITORY: All CT scans at this facility are submitted to the National Radiology Data Registry (NRDR) Dose Index Registry (DIR) with the [employer] (ACR). RADIATION OPTIMIZATION: All CT scans at this facility use at least one of these dose optimization te chniques: automated exposure control; mA and/or kV adjustment per patient size (includes targeted exa ms where dose is matched to clinical indication); or iterative reconstruction.
[2019-12-16 18:13] LABS: ALT 28 U/L (16-63); AST 16 U/L (15-37); Albumin 3.5 g/dL (3.4-5.0); Alkaline Phosphatase 64 U/L (46-116); Anion Gap 8.2 mmol/L (3-11); BUN 11 mg/dL (7-18); Bilirubin, Total 0.5 mg/dL (0.2-1.0); CO2 29.8 mmol/L (21.0-32.0); CREATININE 0.99 mg/dL (0.70-1.30); Calcium 8.7 mg/dL (8.5-10.1); Chloride 102 mmol/L (98-107); Glucose 109 mg/dL (74-106); INR 1.1 (0.9-1.1); Lipase 69 U/L (73-393); PTT Activated 25.7 sec (21.0-31.4); Potassium 3.7 mmol/L (3.5-5.1); Prothrombin Time 10.8 sec (9.3-11.0); Sodium 140 mmol/L (136-145); Total Protein 7.8 g/dL (6.4-8.2)
[2019-12-16] MEDS: Normal Saline 1,000 ML 1000 ML IV (18:13)
[2019-12-16] MEDS: Ondansetron 4 MG/2 ML VIAL IVP (18:14)
--- NOTE | 2019-12-16 18:34 | DI.VRAD_ITS ---
Addendum created by Steev Adler MD on 12/16/2019 6:46:[address] Cheek was informed of this critical finding 12/16/2019 at 6:45 p.m. Eastern standard time. Initial report created on 12/16/2019 6:34:25 PM EDT PROCEDURE INFORMATION: Exam: CT Abdomen And Pelvis With Contrast Exam date and time: 12/16/2019 5:20 PM Age: 44 years old Clinical indication: Abdominal pain; Generalized; Patient HX: Abd pain 2 days TECHNIQUE: Imaging protocol: Computed tomography of the abdomen and pelvis with intravenous contrast. Radiation optimization: All CT scans at this facility use at least one of these dose optimization techniques: automated exposure control; mA and/or kV adjustment per patient size (includes targeted exams where dose is matched to clinical indication); or iterative reconstruction. Contrast material: OMNI 350; Contrast volume: 100 ml; Contrast route: IV; COMPARISON: CT ABD PELVIS WITH CONTRAST 04/02/2017 3:02 PM FINDINGS: Lungs: There are dependent atelectatic changes at the lung bases. There is fibrosis and scarring at the lung bases. Heart: The visualized portions of the heart and pericardium appeared within normal limits. Liver: There is fatty infiltration of the liver. There is a low-attenuation lesion within the right lobe of the liver measuring 2.6 x2.5 cm. Gallbladder and bile ducts: The patient is status post cholecystectomy. Pancreas: There is slight haziness around the tail of the pancreas. There is fluid adjacent to the pancreas tracking into the left pericolic gutter. These findings are suspicious for acute pancreatitis. Spleen: The spleen is within normal limits. Adrenals: The adrenal glands are unremarkable. Kidneys and ureters: The right kidney is unremarkable. There is a simple cyst within the midpole of left kidney measuring to 3.2 cm. This appears essentially unchanged from the prior study. Stomach and bowel: Unremarkable. No obstruction. No mucosal thickening. Appendix: The appendix is visualized and is within normal limits. Intraperitoneal space: Unremarkable. No free air. No significant fluid collection. Vasculature: The left renal vein is prominent. It is enlarged when compared to the prior study. There is thrombus within the left renal vein. This extends from the left renal pelvis into the IVC. Clinical correlation is recommended. Lymph nodes: No enlarged lymph nodes. Bladder: The urinary bladder is within normal limits. Reproductive: The prostate and seminal vesicles are within normal limits. Bones/joints: The visualized bony structures appear within normal limits. Soft tissues: Unremarkable. IMPRESSION: 1. Acute pancreatitis as above. 2. Thrombosis of the left renal vein. The thrombosis extends from the left renal pelvis into the IVC. 3. Fatty infiltration of the liver. Low-attenuation lesion within the liver can be re-evaluated with CT scan of the liver utilizing hemangioma protocol. 4. Stable simple left midpole renal cyst. 5. Status post cholecystectomy. Dictated and Authenticated by: Steve Adler MD. Ordering:ABBY Erwin MD
[2019-12-16 18:58] LABS: Bilirubin Negative (Negative); Blood Trace-intact (Negative); Clarity Clear (Clear); Glucose Negative (Negative); Ketones Negative (Negative); Leukocyte Esterase Negative (Negative); Nitrite Negative (Negative); Urobilinogen 0.2 EU/dL (Up TO 0.2); pH 7.5 (5-8)
[2019-12-16 19:03] LABS: Bacteria Negative HPF (Negative); C & S Indicated? No; Casts Negative LPF (Negative); Crystals Negative HPF (Negative); Epithelial Cells Negative HPF (Negative); Mucus Negative (Negative); Other Cells Negative (Negative)
[2019-12-16] MEDS: HYDROmorphone 2 MG/ML VIAL 1 MG IVP (19:26)
[2019-12-16] MEDS: Apixaban 5 MG TAB 10 MG PO (19:35)
--- NOTE | 2019-12-16 20:24 | W.PM.HP.N ---
Date of service: 12/16/19 Time of Service: 20:25 Assessment and Plan Assessment and plan (1) Thrombosis of left renal vein: Status: Acute Assessment and plan: Differential diagnosis include nephrotic syndrome (however his urinalysis only shows 30 mg/dL protein), hypercoagulable disorder, occult malignancy (pancreatic, lung, colon) (unlikely to be colon cancer given a negative colonoscopy last year) We will check a CT scan of the chest in the morning and follow-up the liver abnormality with an ultrasound of his liver and pancreas and get a renal ultrasound the morning. Will check a 24-hour urine for protein and creatinine to evaluate for nephrotic range proteinuria. We will continue with oral and/or IV analgesics along with antiemetics and IV fluid hydration. If his pain is well controlled he could be discharged home on apixaban 10 mg twice a day for the next 7 days followed by 5 mg BID the patient should be referred to nephrology and hematology for further evaluation of his renal vein thrombosis. I spoke with the vascular fellow Dr. Dueñas who indicated that there is no preference of her 1 anticoagulation versus another. Given that the patient is not going to need an interventional procedure I think oral anticoagulation makes the most sense. Patient will be kept on apixaban at this point History of Present Illness History of Present Illness Chief Complaint: Crampy abdominal pain with nausea and dry heaves Narrative: 44-year-old male smoker with a past medical history of BPH, ADHD, hyperlipidemia, and irritable bowel syndrome who presents to the emergency department with 2-day history of nausea and crampy abdominal pain in the left lower quadrant. This started yesterday morning he thought it was due to his irritable bowel syndrome he had some diarrhea which is not unusual for him from his IBS. He had taken some Imodium for this. He was able to sleep last night but then this morning when the crampy abdominal pain return and was worse he called his primary care physician advised him come to emergency department. Patient denies any hematuria or dysuria or flank pain and has no fever or chills is had no ill contacts and has not traveled outside the area recently and has no respiratory symptoms. In the emergency department he had a work-up that included routine labs including CBC CMP urinalysis. CBC was unremarkable. CMP showed a mildly elevated glucose of 109 but otherwise normal electrolytes renal and liver function tests. Urinalysis was remarkable for the 30 mg/dL protein and a trace of blood with 5-10 red cells per high-power field and 3-5 white cells but no bacteria casts or crystals and negative for nitrites and leukocyte Estrace. CT scan was performed of the abdomen and pelvis with contrast and demonstrated fatty liver changes and a low-attenuation lesion of the right lobe of the liver measuring 2.6 x 2.5 cm. Right kidney was unremarkable left kidney had a simple cyst in the midpole the left kidney measuring 3.2 cm. In the vasculature of the kidney showed a prominent left renal vein with thrombosis that extends into the IVC. There is no lymphadenopathy in the abdomen and pelvis and the adrenals and spleen and stomach and bowels are all unremarkable. Pancreas showed slight haziness around the tail the pancreas with fluid adjacent to the pancreas tracking into the left paracolic gutter. These findings were suspicious for acute pancreatitis. However his lipase was within normal limits. Dr. Rip Cheek, emergency room attending, called [facility] and spoke with Dr. Dueñas, vascular fellow who advised anticoagulation analgesics and hospitalization here at [facility] overnight but did not recommend transfer to [facility]. Patient was given IV fluids and Zofran for the nausea and Dilaudid for the pain. He was started on apixaban 10 mg in the emergency department and is now admitted for observation overnight as well as follow-up ultrasound of his kidneys pancreas and liver in the morning. Because of his smoking history we will get a CT scan of his chest to rule out an occult malignancy. He reports that he had a colonoscopy last year by his GI doctor at [facility] for evaluation of his IBS. He is scheduled for an EGD later this year at [facility] to evaluate his GERD. Review of Systems All systems reviewed & are unremarkable except as noted in HPI and below PFSH Medical History BPH (benign prostatic hyperplasia) (Chronic) Depression (Chronic) Fatty liver (Chronic) GERD (gastroesophageal reflux disease) (Chronic) Hypercholesterolemia (Chronic) Surgical History repair of incarcerated umbilical hernia (Inactive 04/16/17) S/P cholecystectomy (Inactive ~06/2018) S/P colonoscopy (Inactive ~02/12/19) Vasectomy (Inactive) Family History Father Diabetes Essential hypertension Mother Essential hypertension Hyperlipidemia Social History (Updated 12/16/19 @ 21:55 by Jacob Nieves) Smoking/Tobacco Use Status: Current every day Tobacco Type: cigarettes Smoking packs per day: 1 Smoking cigarettes per day: 20.0 Years smoked: 20 Smoking pack-years: 20.00 Tobacco: How many years used: 20 Alcohol Intake: never Substance use type: does not use Do you feel safe at home: Yes Do you feel safe in your relationship?: Yes Meds Home Medications and Allergies Home Medications Medication Instructions Recorded Confirmed Type acetaminophen [Tylenol] 650 mg PO Q6H PRN PRN #30 tab 06/04/18 12/16/19 Rx meclizine 25 mg tablet 25 - 50 mg PO DAILY PRN #30 tab-cap 08/02/19 12/16/19 Rx cyclobenzaprine 10 mg PO HS #14 tab 08/19/19 12/16/19 Rx ibuprofen 600 mg PO Q8H PRN #20 tab 08/19/19 12/16/19 Rx lidocaine [Aspercreme (lidocaine)] 1 patch TP DAILY PRN #1 each 08/19/19 12/16/19 Rx divalproex 250 mg tablet,delayed 250 mg PO BID #60 tab 11/29/19 12/16/19 Rx release nystatin 100,000 unit/mL oral 4 ml PO QID #160 ml 11/29/19 12/16/19 Rx suspension omeprazole 20 mg capsule,delayed 20 mg PO DAILY #90 cap 11/29/19 12/16/19 Rx release pravastatin 20 mg tablet 20 mg PO DAILY #90 tab 11/29/19 12/16/19 Rx tamsulosin 0.4 mg capsule 0.8 mg PO DAILY #180 cap 11/29/19 12/16/19 Rx sertraline 50 mg PO DAILY 12/16/19 12/16/19 History Allergies Allergy/AdvReac Type Severity Reaction Status Date / Time cephalexin Allergy Unverified 12/16/19 17:23 No Known Drug Allergies Allergy Verified 11/10/19 15:54 Exam Narrative Exam Narrative: Middle-age male who is alert and oriented person place time circumstance. HEENT is unremarkable. Neck is supple nontender no JVD normal carotid pulses no lymphadenopathy no carotid bruits. Lungs are clear to auscultation and percussion. Heart is regular rate and rhythm without murmur rub or gallop. Abdomen is slightly obese soft and nondistended. Minimal tenderness in the left lower quadrant with no guarding or rebound tenderness. Rectal and genitalia exam deferred and was performed in the emergency department by Dr. Cheek. Lower extremities without peripheral cyanosis or edema no calf tenderness or swelling. Normal pedal pulses. Neurologic exam grossly intact no focal deficits. Results Labs Result diagrams: 12/16/19 17:25 12/16/19 17:25 Labs: Laboratory Results - last 24 hr 12/16/19 12/16/19 12/16/19 17:25 17:25 17:25 WBC 9.73 RBC 4.57 Hgb 15.1 Hct 43.7 MCV 95.6 H MCH 33.0 MCHC 34.6 RDW 13.1 Plt Count 183 MPV 10.2 Immature Gran % 0.3 Neutrophils % 69.5 Lymphocytes % 19.3 Monocytes % 10.0 Eosinophils % 0.8 Basophils % 0.1 Absolute Neutrophils 6.76 H Absolute Lymphocytes 1.88 Absolute Monocytes 0.97 H Absolute Eosinophils 0.08 Absolute Basophils 0.01 PT 10.8 INR 1.1 APTT 25.7 Sodium 140 Potassium 3.7 Chloride 102 Carbon Dioxide 29.8 Anion Gap 8.2 BUN 11 Creatinine 0.99 Estimated GFR/1.73 m2 >= 60.00 Glucose 109 H Calcium 8.7 Total Bilirubin 0.5 Conjugated Bilirubin 0.10 AST 16 ALT 28 Alkaline Phosphatase 64 Total Protein 7.8 Albumin 3.5 Lipase 69 Urine Color Urine Clarity Urine pH Ur Specific Hadley Urine Protein Urine Ketones Urine Blood Urine Nitrite Urine Bilirubin Urine Urobilinogen Ur Leukocyte Esterase Urine RBC Urine WBC Ur Epithelial Cells Urine Crystals Urine Bacteria Urine Casts Urine Mucus Urine Other Ur Culture Indicated? Urine Glucose 12/16/19 18:50 WBC RBC Hgb Hct MCV MCH MCHC RDW Plt Count MPV Immature Gran % Neutrophils % Lymphocytes % Monocytes % Eosinophils % Basophils % Absolute Neutrophils Absolute Lymphocytes Absolute Monocytes Absolute Eosinophils Absolute Basophils PT INR APTT Sodium Potassium Chloride Carbon Dioxide Anion Gap BUN Creatinine Estimated GFR/1.73 m2 Glucose Calcium Total Bilirubin Conjugated Bilirubin AST ALT Alkaline Phosphatase Total Protein Albumin Lipase Urine Color Yellow Urine Clarity Clear Urine pH 7.5 Ur Specific Hadley 1.010 Urine Protein 30 H Urine Ketones Negative Urine Blood Trace-intact H Urine Nitrite Negative Urine Bilirubin Negative Urine Urobilinogen 0.2 Ur Leukocyte Esterase Negative Urine RBC 5-10 H Urine WBC 3-5 Ur Epithelial Cells Negative Urine Crystals Negative Urine Bacteria Negative Urine Casts Negative Urine Mucus Negative Urine Other Negative Ur Culture Indicated? No Urine Glucose Negative Last Vital Signs Temp 37.2 C 12/16/19 17:16 Pulse 80 12/16/19 18:52 BP 144/81 H 12/16/19 18:52 Pulse Ox 93 L 12/16/19 18:52 COVID-19 Screening Traveled to [place] from one of the affected countries or regions?: NO Recent travel in the [place] within the last 8 weeks?: No Recent out of the country travel within the last 8 weeks?: No Exposure or possible exposure to illness during travel?: No Had IN PERSON contact w/suspected or confirmed C-19 person: No Have you had the following symptoms in the past few days?: No Symptoms noted since travel?: No Symptoms
[2019-12-16] MEDS: Normal Saline 1,000 ML 150 ML IV (20:57)
[2019-12-16] MEDS: Divalproex 250 MG TABEC PO (21:47)
[2019-12-16] MEDS: Cyclobenzaprine 10 MG TAB PO (21:47)
[2019-12-17] VITALS (8 sets, daily range): BP systolic 115–138; BP diastolic 70–84; PULSE 70–86; RESP 16–18; TEMP 36.2–38.2; O2SAT 93–96
[2019-12-17] MEDS: Normal Saline 1,000 ML 150 ML IV (03:06)
[2019-12-17] MEDS: HYDROmorphone 2 MG/ML VIAL IVP ×2 (06:16→21:04)
[2019-12-17 06:59] LABS: Anion Gap 7.6 mmol/L (3-11); BUN 11 mg/dL (7-18); CO2 27.4 mmol/L (21.0-32.0); CREATININE 0.86 mg/dL (0.70-1.30); Calcium 8.1 mg/dL (8.5-10.1); Chloride 104 mmol/L (98-107); Glucose 102 mg/dL (74-106); Potassium 3.8 mmol/L (3.5-5.1); Sodium 139 mmol/L (136-145)
--- NOTE | 2019-12-17 07:00 | DI.US_ITS ---
EXAM: US ABDOMEN RENAL CLINICAL HISTORY: low attenuation liver lesion on CT scan, left renal vein thrombosis TECHNIQUE: Ultrasound abdomen performed using standard protocol. COMPARISON: No exams were available for comparison FINDINGS: ABDOMINAL AORTA AND IVC: Visualized portions normal caliber. Left renal vein was visualized. No colo r flow is seen within the left renal vein. The finding is consistent with a left renal vein thrombus seen on the CT scan from the day prior. The inferior vena cava appears patent. PANCREAS: Normal where visualized. LIVER: Increased echogenicity throughout the liver consistent with hepatic steatosis. Hepatopedal fl ow in the Portal Vein. The right hepatic lesions seen on the CT scan is not well visualized on this e xamination. A CT scan of the abdomen using the hemangioma protocol is recommended. GALLBLADDER: Status post cholecystectomy. BILIARY SYSTEM: Common bile duct measures 7 mm. No intrahepatic biliary ductal dilation. GARCIA'S SIGN: Status post cholecystectomy. KIDNEYS: Kidneys are symmetric in size. No evidence of renal calculi. No evidence of hydronephrosis. There is a 2.8 x 2.7 x 2.6 cm simple left renal cyst. SPLEEN: Not enlarged. ASCITES: None seen. Urinary bladder: The prevoid urinary bladder volume is 191 cc. The patient was unable to void. Both ureteral jets were visualized. Bladder wall appeared smooth. Prostate: Prostatic volume is 27 cc. IMPRESSION: 1. Paddock lesion seen on the CT scan is not visualized on this ultrasound. CT scan of the abdomen i s recommended for further evaluation. 2. Lack of flow demonstrated within the left renal vein which contains echogenic material. Finding i s consistent with the patient's known left renal vein thrombus. The visualized inferior vena cava ap pears patent. 3. Hepatic steatosis. 4. Status post cholecystectomy. DATA REPOSITORY:
[2019-12-17] MEDS: Omnipaque 350 MG/ML 100 ML BTL IJ (09:27)
[2019-12-17] MEDS: Normal Saline - Diluent 50 ML VIAL IV (09:28)
[2019-12-17] MEDS: Pravastatin 20 MG TAB PO (09:36)
[2019-12-17] MEDS: Apixaban 5 MG TAB 10 MG PO (09:36)
[2019-12-17] MEDS: Tamsulosin 0.4 MG CAPCR 0.8 MG PO (09:36)
[2019-12-17] MEDS: Sertraline 50 MG TAB PO (09:36)
[2019-12-17] MEDS: Divalproex 250 MG TABEC PO ×2 (09:36→20:49)
[2019-12-17] MEDS: Omeprazole 20 MG CAPCR PO (09:36)
[2019-12-17] MEDS: Normal Saline Flush 10 ML SYR IVP ×2 (09:38→21:05)
--- NOTE | 2019-12-17 09:50 | DI.CT_ITS ---
EXAM: CT CHEST W CLINICAL HISTORY: renal vein thrombosis; smoker r/o lung CA TECHNIQUE: Imaging Protocol: Axial computed tomography images with coronal and sagittal reformatted images were created and reviewed CONTRAST MATERIAL: Intravenous: Omnipaque 350 Contrast volume:60 mL. COMPARISON: XR CHEST 2V PA LATERAL from 08/11/2019 CT ABDOMEN PELVIS W from 12/16/2019 FINDINGS: Tracheobronchial tree: Patent where visualized. Mediastinum and Lenore: No dominant adenopathy or fluid collection. Pulmonary parenchyma: There are infiltrates seen in the lower lobes bilaterally and the left lingula. No pulmonary nodules are identified. Pleura: There is a small left pleural effusion and subjacent infiltrate which may represent atelectas is or pneumonia. There is mild pleural scarring present. Heart: The heart is not dilated. No coronary artery calcifications are seen. No pericardial effusion. Aorta: Thoracic aorta non-dilated. Pulmonary arteries: Not opacified well for assessment for pulmonary embolism. Upper abdomen: Unchanged compared to the CT scan from the day prior. Lymph nodes: Within normal limits. Bones: Normal. IMPRESSION: 1. No evidence of a pulmonary mass or thoracic adenopathy. 2. Bilateral basilar infiltrates which may represent atelectasis or pneumonia. 3. Small left pleural effusion DATA REPOSITORY: All CT scans at this facility are submitted to the National Radiology Data Registry (NRDR) Dose Index Registry (DIR) with the [employer] (ACR). RADIATION OPTIMIZATION: All CT scans at this facility use at least one of these dose optimization te chniques: automated exposure control; mA and/or kV adjustment per patient size (includes targeted exa ms where dose is matched to clinical indication); or iterative reconstruction.
--- NOTE | 2019-12-17 11:10 | PDOC.CMIN ---
- If Service Date Differs Date of service: 12/17/19 Time of Service: 11:10 Care Management Initial Assess REASON FOR HOSPITALIZATION:: Left renal thrombosis. PAST MEDICAL HISTORY/PAST SURGICAL HISTORY:: Medical History: BPH (benign prostatic hyperplasia), Depression, Fatty liver,. GERD (gastroesophageal reflux disease), and Hypercholesterolemia. Surgical History: repair of incarcerated umbilical hernia, S/P cholecystectomy, S/P colonoscopy, and Vasectomy. PREVIOUS FUNCTIONAL STATUS/SOCIAL/FAMILY SUPPORTS:: Huber resides at the [facility] in [facility]. He is currently in isolation, awaiting covid test results. CM contacts his mom, Zulema, by telephone and she reports that Huber is not employed, and that he spends his time doing yardwork, and building bird houses and bird feeders. She shares he has a learning disability, but is independent with his ADLs at baseline. CURRENT FUNCTIONAL STATUS:: CM is unable to meet with Huber today as he is in isolation awaiting Covid-19 test results. CM will continue to follow. ADVANCE DIRECTIVES:: None on file. Has patient been provided with information about the portal?: No Did the patient sign up for the portal?: No (In isolation) CODE STATUS:: Full Code INSURANCE COVERAGE / FINANCIAL ISSUES:: Medicaid. CURRENT HOME/COMMUNITY SERVICES/EQUIPMENT:: Per his mom, Huber has no in-home services and does not utilize medical equipment. He is currently living at the [facility]. PRIMARY CARE PHYSICIAN:: Valencia Avina MD ([facility]). POTENTIAL DISCHARGE NEEDS:: Follow-up appointment with PCP and referral to nephrology and hematology for further evaluation of his renal vein thrombosis. PATIENT/FAMILY EDUCATION NEEDS:: Discharge instructions, limitations, follow-up plan of care, including Ask Me Three and self-management. ANTICIPATED BARRIERS TO DISCHARGE:: No anticipated barriers at this time. TRANSPORTATION:: Via private vehicle with parents if discharged on Friday; otherwise CM will need to coordinate [facility] for transport when ready. PLAN:: Anticipate Huber will be discharged back to the [facility] with no new services when medically cleared by provider. Parents will provide transportation if he is discharged on . If parents are unavailable, CM will coordinate transport via [facility]. CM will continue to follow.
--- NOTE | 2019-12-17 14:19 | PHA.REVIEW ---
Pharmacy Admission Review - Admission Clinical Review (Last Reviewed 12/16/19 @ 21:52 by Jacob Nieves) Thrombosis of left renal vein (Acute) Abdominal pain (Acute) cephalexin Allergy (Unverified 12/16/19 17:23) No Known Drug Allergies Allergy (Verified 11/10/19 15:54) Height 5 ft 10 in Weight 93.9 kg - Renal Dosing Renal Dosing: BUN 11 mg/dL (7-18) 12/17/19 06:30 Creatinine 0.86 mg/dL (0.70-1.30) 12/17/19 06:30 Medications needing adjustments: Reviewed (crcl ~114ml/min) - Anticoagulation Anticoagulation: Hgb 15.1 g/dL (13.5-17.5) 12/16/19 17:25 Hct 43.7 % (40.0-50.0) 12/16/19 17:25 Plt Count 183 x1000/uL (130-400) 12/16/19 17:25 INR 1.1 (0.9-1.1) 12/16/19 17:25 Creatinine 0.86 mg/dL (0.70-1.30) 12/17/19 06:30 Therapeutic Anticoagulation: Reviewed Medications: Apixaban - Opiate Usage Evaluate Pain Scale/Pains Meds: Reviewed Scheduled Bowel Reg ordered if on Opiates?: No (PRN) - Relevant Labs Sodium 139 mmol/L (136-145) 12/17/19 06:30 Potassium 3.8 mmol/L (3.5-5.1) 12/17/19 06:30 Chloride 104 mmol/L (98-107) 12/17/19 06:30 Electrolytes, C-Reactive P, ESR: Reviewed - DM Control DM Control: Glucose 102 mg/dL (74-106) 12/17/19 06:30 Insulin Dosing: N/A - Heart Failure/WV EF%, ENMA's, B-Blockers, Diuretics: N/A - BP Control BP Control: Blood Pressure 115/77 Blood Pressure 122/72 Blood Pressure 135/84 - Qtc Review If Elevated: N/A - IV to PO Switch IV Medications: Reviewed (iV and PO pain meds, zofran IV, IVF,) - Home Meds Relevent Home Meds Not ordered & why?: ibuprofen, meclizine - Current meds Current Medication Order Review: Reviewed - Comments Comments/Follow Ups: follow pain control, any s&s bleeding , IVto PO switches
--- NOTE | 2019-12-17 14:25 | W.NUTCONSULT ---
Date of service: 12/17/19 Time of Service: 14:25 Nutritional Consult ASSESSMENT: 44 year old male admitted with nephrotic syndrome, hypercoagulable disorder and occult malignancy. Following renalur diet with adequate intake. BMI indicates overweight status. Not at risk for nutritional decline at this time. Will follow prn. Time Spent in Nutritional Counseling and Treatment: 0 time spent face to face
--- NOTE | 2019-12-17 15:36 | PGE_ITS ---
Date of Service Date of service: 12/17/19 Time of Service: 15:36 Assessment and Plan Assessment and plan (1) Thrombosis of left renal vein: Status: Acute Assessment and plan: Case discussed with hematology at [facility]. Because renal vein thrombosis has an association with nephrotic syndrome, she agrees with our 24 hour urine collection. However, DOAC may not be adequate anticoagulation because nephrotic syndrome can be association with antithrombin deficiency. In this case, she recommends therapeutic lovenox 100 mg SC BID x 2 weeks with outpatient transition to warfarin. The patient will need to have outpatient follow up for anti-Xa level and will need hematology follow up. I have ordered lovenox teaching, transitioned the patient to lovenox starting tonight. The patient can go home tomorrow. COVID can be a hypercoagulable state, but has not been associated with renal vein thrombosis thus far. In any case, COVID-19 test is pending. (2) Abdominal pain: Status: Resolved Assessment and plan: Likely due to above Qualifiers: Abdominal location: left lower quadrant Qualified Code(s): R10.32 - Left lower quadrant pain (3) BPH (benign prostatic hyperplasia): Status: Chronic Assessment and plan: Continue flomax (4) Depression: Status: Acute Assessment and plan: Continue sertraline (5) Discharge planning issues: Status: Acute Assessment and plan: Full code Likely discharge home tomorrow with 2 weeks of SC lovenox Will send rx to his pharmacy to verify coverage. Will send referral to [facility] [place] (patient gets other care at [facility] and prefers [facility] Subjective Subjective Interval history since last seen: Mr Masters feels tired. Denies dizziness, chest pain, shortness of breath, nausea, abdominal pain. Exam Narrative Exam Narrative: General: Pleasant, mildly anxious middle-aged male, A&Ox3, sitting up comfortably in bed HEENT: EOMI, MMM Heart: RRR, no m/r/g Lungs: CTAB Abdomen: soft, nontender, nondistended Extremities: no e/c/c BLE's Objective Objective Clinical Data: Abnormal lab results 12/16/19 12/16/19 12/16/19 Range/Units 17:25 17:25 18:50 MCV 95.6 H (80-95) fL Absolute Neutrophils 6.76 H (1.2-6.7) k/cumm Absolute Monocytes 0.97 H (0.11-0.7) k/cumm Glucose 109 H (74-106) mg/dL Calcium (8.5-10.1) mg/dL Urine Protein 30 H (Negative) mg/dL Urine Blood Trace-intact H (Negative) Urine RBC 5-10 H (0-2) HPF 12/17/19 Range/Units 06:30 MCV (80-95) fL Absolute Neutrophils (1.2-6.7) k/cumm Absolute Monocytes (0.11-0.7) k/cumm Glucose (74-106) mg/dL Calcium 8.1 L (8.5-10.1) mg/dL Urine Protein (Negative) mg/dL Urine Blood (Negative) Urine RBC (0-2) HPF Vital Signs Temperature 36.7 C 12/17/19 12:28 Temperature Source Tympanic 12/17/19 12:28 Pulse 74 12/17/19 12:28 Pulse Rhythm Regular 12/17/19 12:17 Respiratory Rate 18 12/17/19 12:28 Respiratory Effort Non-Labored 12/17/19 12:17 Respiratory Depth Normal 12/17/19 12:17 Respiratory Pattern Normal 12/17/19 12:17 Blood Pressure 115/77 12/17/19 12:28 Blood Pressure Mean 94 12/16/19 18:52 Blood Pressure Position Sitting 12/16/19 17:16 Pulse Oximetry 93 L 12/17/19 12:28 Oxygen Delivery Method Room Air 12/17/19 12:28 Oxygen Flow Rate 0 12/17/19 12:28 Pain Level 4 12/17/19 12:28 Comment 12/17/19 12:28 Intake & Output 12/16/19 12/17/19 12/17/19 23:59 11:59 23:59 Intake Total 1200 / 1200 1532.5 / 1882.5 350 / 1882.5 Output Total 500 / 500 Balance 1200 / 1200 1032.5 / 1382.5 350 / 1382.5 Weight 95.254 kg 93.9 kg Intake: IV 1000 / 1000 922.5 / 922.5 Oral 200 / 200 610 / 960 350 / 960 Output: Urine 500 / 500 Other: Urine Color Light Myrna Urine Appearance Clear Clear Laboratory Results WBC 9.73 k/cumm (4.4-10.8) 12/16/19 17:25 RBC 4.57 m/cumm (4.50-6.00) 12/16/19 17:25 Hgb 15.1 g/dL (13.5-17.5) 12/16/19 17:25 Hct 43.7 % (40.0-50.0) 12/16/19 17:25 MCV 95.6 fL (80-95) H 12/16/19 17:25 MCH 33.0 pg (27.0-33.0) 12/16/19 17:25 MCHC 34.6 g/dL (32.0-36.0) 12/16/19 17:25 RDW 13.1 % (11.8-14.1) 12/16/19 17:25 Plt Count 183 x1000/uL (130-400) 12/16/19 17:25 MPV 10.2 fL (8.0-11.0) 12/16/19 17:25 Immature Gran % 0.3 % 12/16/19 17:25 Neutrophils % 69.5 12/16/19 17:25 Lymphocytes % 19.3 12/16/19 17:25 Monocytes % 10.0 12/16/19 17:25 Eosinophils % 0.8 12/16/19 17:25 Basophils % 0.1 12/16/19 17:25 Absolute Neutrophils 6.76 k/cumm (1.2-6.7) H 12/16/19 17:25 Absolute Lymphocytes 1.88 k/cumm (1.2-3.4) 12/16/19 17:25 Absolute Monocytes 0.97 k/cumm (0.11-0.7) H 12/16/19 17:25 Absolute Eosinophils 0.08 k/cumm (0.0-0.7) 12/16/19 17:25 Absolute Basophils 0.01 k/cumm (0.0-0.2) 12/16/19 17:25 PT 10.8 sec (9.3-11.0) 12/16/19 17:25 INR 1.1 (0.9-1.1) 12/16/19 17:25 APTT 25.7 sec (21.0-31.4) 12/16/19 17:25 Sodium 139 mmol/L (136-145) 12/17/19 06:30 Potassium 3.8 mmol/L (3.5-5.1) 12/17/19 06:30 Chloride 104 mmol/L (98-107) 12/17/19 06:30 Carbon Dioxide 27.4 mmol/L (21.0-32.0) 12/17/19 06:30 Anion Gap 7.6 mmol/L (3-11) 12/17/19 06:30 BUN 11 mg/dL (7-18) 12/17/19 06:30 Creatinine 0.86 mg/dL (0.70-1.30) 12/17/19 06:30 Estimated GFR/1.73 m2 >= 60.00 (mL/min/1.73m2) 12/17/19 06:30 Glucose 102 mg/dL (74-106) 12/17/19 06:30 Calcium 8.1 mg/dL (8.5-10.1) L 12/17/19 06:30 Total Bilirubin 0.5 mg/dL (0.2-1.0) 12/16/19 17:25 Conjugated Bilirubin 0.10 mg/dL (0.00-0.20) 12/16/19 17:25 AST 16 U/L (15-37) 12/16/19 17:25 ALT 28 U/L (16-63) 12/16/19 17:25 Alkaline Phosphatase 64 U/L (46-116) 12/16/19 17:25 Total Protein 7.8 g/dL (6.4-8.2) 12/16/19 17:25 Albumin 3.5 g/dL (3.4-5.0) 12/16/19 17:25 Lipase 69 U/L (73-393) 12/16/19 17:25 Urine Color Yellow (Yellow) 12/16/19 18:50 Urine Clarity Clear (Clear) 12/16/19 18:50 Urine pH 7.5 (5-8) 12/16/19 18:50 Ur Specific [place] 1.010 (1.005-1.025) 12/16/19 18:50 Urine Protein 30 mg/dL (Negative) H 12/16/19 18:50 Urine Ketones Negative mg/dL (Negative) 12/16/19 18:50 Urine Blood Trace-intact (Negative) H 12/16/19 18:50 Urine Nitrite Negative (Negative) 12/16/19 18:50 Urine Bilirubin Negative (Negative) 12/16/19 18:50 Urine Urobilinogen 0.2 EU/dL (Up TO 0.2) 12/16/19 18:50 Ur Leukocyte Esterase Negative (Negative) 12/16/19 18:50 Urine RBC 5-10 HPF (0-2) H 12/16/19 18:50 Urine WBC 3-5 HPF (0-5) 12/16/19 18:50 Ur Epithelial Cells Negative HPF (Negative) 12/16/19 18:50 Urine Crystals Negative HPF (Negative) 12/16/19 18:50 Urine Bacteria Negative HPF (Negative) 12/16/19 18:50 Urine Casts Negative LPF (Negative) 12/16/19 18:50 Urine Mucus Negative (Negative) 12/16/19 18:50 Urine Other Negative (Negative) 12/16/19 18:50 Ur Culture Indicated? No 12/16/19 18:50 Urine Glucose Negative mg/dL (Negative) 12/16/19 18:50 US abdomen and renal: 1. Paddock lesion seen on the CT scan is not visualized on this ultrasound. CT scan of the abdomen is recommended for further evaluation. 2. Lack of flow demonstrated within the left renal vein which contains echogenic material. Finding is consistent with the patient's known left renal vein thrombus. The visualized inferior vena cava appears patent. 3. Hepatic steatosis. 4. Status post cholecystectomy. CT chest w/ contrast: 1. No evidence of a pulmonary mass or thoracic adenopathy. 2. Bilateral basilar infiltrates which may represent atelectasis or pneumonia. 3. Small left pleural effusion
[2019-12-17 16:22] LABS: D-Dimer (UVM) 570 ng/mL DDU (<=230)
[2019-12-17 16:27] LABS: INR 1.2 Ratio (0.9-1.1)
[2019-12-17] MEDS: Acetaminophen 325 MG TAB PO (18:51)
[2019-12-17] MEDS: Enoxaparin 100 MG/ML SYR SC (20:49)
[2019-12-18 07:35] VITALS: BP 119/73; PULSE 75; RESP 18; TEMP 36.8; O2SAT 95
[2019-12-18 07:37] LABS: Abs Immature Grans 0.01 k/cumm (0.0-0.09); Absolute Basophil Count 0.01 k/cumm (0.0-0.2); Absolute Eosinophil Count 0.11 k/cumm (0.0-0.7); Absolute Lymphocyte Count 1.75 k/cumm (1.2-3.4); Absolute Monocyte Count 0.92 k/cumm (0.11-0.7); Absolute Neutrophil Count 5.68 k/cumm (1.2-6.7); Basophils % 0.1; Eosinophils % 1.3; HGB 13.3 g/dL (13.5-17.5); Immature Grans % 0.1 %; Lymphocytes % 20.6; Mean Corp. HGB Concentration 34.1 g/dL (32.0-36.0); Mean Corpuscular Hemoglobin 32.7 pg (27.0-33.0); Mean Corpuscular Volume 95.8 fL (80-95); Mean Platelet Volume 11.1 fL (8.0-11.0); Monocytes % 10.8; Neutrophils % 67.1; Platelet Count 189 x1000/uL (130-400); RBC 4.07 m/cumm (4.50-6.00); White Blood Cell Count 8.48 k/cumm (4.4-10.8)
[2019-12-18 07:48] LABS: Anion Gap 8.5 mmol/L (3-11); BUN 13 mg/dL (7-18); CO2 27.5 mmol/L (21.0-32.0); CREATININE 0.83 mg/dL (0.70-1.30); Calcium 8.3 mg/dL (8.5-10.1); Chloride 103 mmol/L (98-107); Glucose 105 mg/dL (74-106); Magnesium 1.9 mg/dL (1.8-2.4); Potassium 3.6 mmol/L (3.5-5.1); Sodium 139 mmol/L (136-145)
--- NOTE | 2019-12-18 08:30 | PDOC.CMPRO ---
- If Service Date Differs Date of service: 12/18/19 Time of Service: 08:30 Care Management Progress Note S/O: CM met with Jalen at the bedside he is alert and engaged during assessment. Jalen states that he will be at the [facility] for about another month, he is unsure what his living arrangements will be after that. He states he has been told he can utilize the home longer if needed. He does have a Mom that is local and supportive. Jalen has questions related to his new medications including storage and how he should manage his health. Jalen understands that he will be on Lovenox for the next two weeks and feels comfortable giving himself an injection. CM reviewed the need for follow up at [facility] for Nephrology and Hematology, also the need for close monitoring of labs. He states he has a good relationship with . He agrees to a referral to [facility], unsure if we will be able to utilize the service as he is listed as an [employer] member, however he would benefit from ongoing support including new medications, acute and chronic disease as well as psychosocial support. CM will request follow up by chronic wound care center consultant and faxed referral to [facility] for review. Jalen states he is able to have his medication at the [facility] and has a locker to keep his medications in. Anticipate he will be discharged over the weekend and follow up with primary care early next week. CM did request nutrition to provide education to patient regarding medication and food interactions. A: Jalen is a 44 year old male admitted with renal thrombosis P:Anticipate Huber will be discharged back to the [facility] with new referral to [facility], and Lovenox while bridging to Coumadin. Huber will need close follow up by primary care during transition. Jalen will need a referral and follow up scheduled with [facility] nephrology and hematology. RCT to be coordinated at time of discharge. CM to continue to assess for anticipated discharge needs.
[2019-12-18] MEDS: Enoxaparin 100 MG/ML SYR SC ×2 (08:40→20:36)
[2019-12-18] MEDS: Sertraline 50 MG TAB PO (08:40)
[2019-12-18] MEDS: Divalproex 250 MG TABEC PO ×2 (08:40→20:36)
[2019-12-18] MEDS: Omeprazole 20 MG CAPCR PO (08:40)
[2019-12-18] MEDS: Pravastatin 20 MG TAB PO (08:40)
[2019-12-18] MEDS: Tamsulosin 0.4 MG CAPCR 0.8 MG PO (08:40)
[2019-12-18] MEDS: Normal Saline Flush 10 ML SYR IVP (08:41)
[2019-12-18 08:49] LABS: PROTEIN 35.4 mg/dL
[2019-12-18 09:08] LABS: COMMENT (LAB VIEW ONLY) 122.48 mg/dL; Prot/Crea Ur Ratio 0.28
[2019-12-18 09:09] LABS: Total Volume 1400 ml
--- NOTE | 2019-12-18 10:44 | PGE_ITS ---
Date of Service Date of service: 12/18/19 Time of Service: 10:44 Assessment and Plan Assessment and plan (1) Thrombosis of left renal vein: Start date: 12/18/19 Start time: 10:46 Status: Acute Assessment and plan: Enoxaparin 100 mg BID. Third dose tonight will get anti-xa in am prior to 4 th dose and have him f/u as outpatient for transition to oral coumadin, Will also need f/u with hematology and nephrology. 24 hour urine pending. (2) Abdominal pain: Start date: 12/18/19 Start time: 10:47 Status: Resolved Assessment and plan: Likely due to above Qualifiers: Abdominal location: left lower quadrant Qualified Code(s): R10.32 - Left lower quadrant pain (3) BPH (benign prostatic hyperplasia): Start date: 12/18/19 Start time: 10:47 Status: Chronic Assessment and plan: Continue flomax (4) Depression: Start date: 12/18/19 Start time: 10:47 Status: Acute Assessment and plan: Continue sertraline (5) Discharge planning issues: Start date: 12/18/19 Start time: 10:47 Status: Acute Assessment and plan: Full code Likely discharge home tomorrow with 2 weeks of SC lovenox Will send rx to his pharmacy to verify coverage. Will send referral [place] [facility] [place] (patient gets other care at [facility] and [place] [facility] Subjective Subjective Patient reports: no new complaints Interval history since last seen: Doing well agrees with plan on discharge, possibly discharge in am, will get anti-xa tonight and send out, will follow up as outpatient. Exam Narrative Exam Narrative: General: Pleasant, mildly anxious middle-aged male, A&Ox3, sitting up comfortably in bed HEENT: EOMI, MMM Heart: RRR, no m/r/g Lungs: CTAB Abdomen: soft, nontender, nondistended Extremities: no e/c/c BLE's Objective Objective Clinical Data: Abnormal lab results 12/17/19 12/18/19 12/18/19 Range/Units 06:30 06:00 07:00 RBC (4.50-6.00) m/cumm Hgb (13.5-17.5) g/dL Hct (40.0-50.0) % MCV (80-95) fL MPV (8.0-11.0) fL Absolute Monocytes (0.11-0.7) k/cumm PT 13.7 H (10.3-13.4) secs INR 1.2 H (0.9-1.1) Ratio D-Dimer 570 H (<=230) ng/mL DDU Calcium 8.3 L (8.5-10.1) mg/dL U Random Total Protein 35.0 H (0.0-11.9) mg/dL Ur Total Protein 24 Hr 490.0 H (0.0-149.1) mg/24hr 12/18/19 Range/Units 07:00 RBC 4.07 L (4.50-6.00) m/cumm Hgb 13.3 L (13.5-17.5) g/dL Hct 39.0 L (40.0-50.0) % MCV 95.8 H (80-95) fL MPV 11.1 H (8.0-11.0) fL Absolute Monocytes 0.92 H (0.11-0.7) k/cumm PT (10.3-13.4) secs INR (0.9-1.1) Ratio D-Dimer (<=230) ng/mL DDU Calcium (8.5-10.1) mg/dL U Random Total Protein (0.0-11.9) mg/dL Ur Total Protein 24 Hr (0.0-149.1) mg/24hr Vital Signs Temperature 36.8 C 12/18/19 07:35 Temperature Source Temporal Artery Scan 12/18/19 07:35 Pulse 75 12/18/19 07:35 Pulse Rhythm Regular 12/18/19 09:57 Respiratory Rate 18 12/18/19 07:35 Respiratory Effort Non-Labored 12/18/19 09:57 Respiratory Depth Normal 12/18/19 09:57 Respiratory Pattern Normal 12/18/19 09:57 Blood Pressure 119/73 12/18/19 07:35 Blood Pressure Mean 94 12/16/19 18:52 Blood Pressure Position Sitting 12/16/19 17:16 Pulse Oximetry 95 12/18/19 07:35 Oxygen Delivery Method Room Air 12/18/19 07:35 Oxygen Flow Rate 0 12/18/19 07:35 Pain Level 0 12/18/19 07:35 Comment 04/17/20 12:28 Intake & Output 12/17/19 12/17/19 12/18/19 11:59 23:59 11:59 Intake Total 2532.5 / 2882.5 350 / 2882.5 Output Total 500 / 500 Balance 2032.5 / 2382.5 350 / 2382.5 Weight 93.9 kg 94.1 kg Intake: IV 1922.5 / 1922.5 Oral 610 / 960 350 / 960 Output: Urine 500 / 500 Other: Urine Color Light Myrna Urine Appearance Clear Clear Clear Laboratory Results WBC 8.48 k/cumm (4.4-10.8) 12/18/19 07:00 RBC 4.07 m/cumm (4.50-6.00) L 12/18/19 07:00 Hgb 13.3 g/dL (13.5-17.5) L 12/18/19 07:00 Hct 39.0 % (40.0-50.0) L 12/18/19 07:00 MCV 95.8 fL (80-95) H 12/18/19 07:00 MCH 32.7 pg (27.0-33.0) 12/18/19 07:00 MCHC 34.1 g/dL (32.0-36.0) 12/18/19 07:00 RDW 13.0 % (11.8-14.1) 12/18/19 07:00 Plt Count 189 x1000/uL (130-400) 12/18/19 07:00 MPV 11.1 fL (8.0-11.0) H 12/18/19 07:00 Immature Gran % 0.1 % 12/18/19 07:00 Neutrophils % 67.1 12/18/19 07:00 Lymphocytes % 20.6 12/18/19 07:00 Monocytes % 10.8 12/18/19 07:00 Eosinophils % 1.3 12/18/19 07:00 Basophils % 0.1 12/18/19 07:00 Absolute Neutrophils 5.68 k/cumm (1.2-6.7) 12/18/19 07:00 Absolute Lymphocytes 1.75 k/cumm (1.2-3.4) 12/18/19 07:00 Absolute Monocytes 0.92 k/cumm (0.11-0.7) H 12/18/19 07:00 Absolute Eosinophils 0.11 k/cumm (0.0-0.7) 12/18/19 07:00 Absolute Basophils 0.01 k/cumm (0.0-0.2) 12/18/19 07:00 PT 13.7 secs (10.3-13.4) H 12/17/19 06:30 INR 1.2 Ratio (0.9-1.1) H 12/17/19 06:30 APTT 25.7 sec (21.0-31.4) 12/16/19 17:25 PTT Control See below 12/16/19 06:30 PTT Patient/Cntrl Mix See below 12/16/19 06:30 D-Dimer 570 ng/mL DDU (<=230) H 12/17/19 06:30 Sodium 139 mmol/L (136-145) 12/18/19 07:00 Potassium 3.6 mmol/L (3.5-5.1) 12/18/19 07:00 Chloride 103 mmol/L (98-107) 12/18/19 07:00 Carbon Dioxide 27.5 mmol/L (21.0-32.0) 12/18/19 07:00 Anion Gap 8.5 mmol/L (3-11) 12/18/19 07:00 BUN 13 mg/dL (7-18) 12/18/19 07:00 Creatinine 0.83 mg/dL (0.70-1.30) 12/18/19 07:00 Estimated GFR/1.73 m2 >= 60.00 (mL/min/1.73m2) 12/18/19 07:00 Glucose 105 mg/dL (74-106) 12/18/19 07:00 Calcium 8.3 mg/dL (8.5-10.1) L 12/18/19 07:00 Magnesium 1.9 mg/dL (1.8-2.4) 12/18/19 07:00 Total Bilirubin 0.5 mg/dL (0.2-1.0) 12/16/19 17:25 Conjugated Bilirubin 0.10 mg/dL (0.00-0.20) 12/16/19 17:25 AST 16 U/L (15-37) 12/16/19 17:25 ALT 28 U/L (16-63) 12/16/19 17:25 Alkaline Phosphatase 64 U/L (46-116) 12/16/19 17:25 Total Protein 7.8 g/dL (6.4-8.2) 12/16/19 17:25 Albumin 3.5 g/dL (3.4-5.0) 12/16/19 17:25 Lipase 69 U/L (73-393) 12/16/19 17:25 Urine Color Yellow (Yellow) 12/16/19 18:50 Urine Clarity Clear (Clear) 12/16/19 18:50 Urine pH 7.5 (5-8) 12/16/19 18:50 Ur Specific [place] 1.010 (1.005-1.025) 12/16/19 18:50 Urine Protein 30 mg/dL (Negative) H 12/16/19 18:50 Urine Ketones Negative mg/dL (Negative) 12/16/19 18:50 Urine Blood Trace-intact (Negative) H 12/16/19 18:50 Urine Nitrite Negative (Negative) 12/16/19 18:50 Urine Bilirubin Negative (Negative) 12/16/19 18:50 Urine Urobilinogen 0.2 EU/dL (Up TO 0.2) 12/16/19 18:50 Ur Leukocyte Esterase Negative (Negative) 12/16/19 18:50 Urine RBC 5-10 HPF (0-2) H 12/16/19 18:50 Urine WBC 3-5 HPF (0-5) 12/16/19 18:50 Ur Epithelial Cells Negative HPF (Negative) 12/16/19 18:50 Urine Crystals Negative HPF (Negative) 12/16/19 18:50 Urine Bacteria Negative HPF (Negative) 12/16/19 18:50 Urine Casts Negative LPF (Negative) 12/16/19 18:50 Urine Mucus Negative (Negative) 12/16/19 18:50 Urine Other Negative (Negative) 12/16/19 18:50 Ur Culture Indicated? No 12/16/19 18:50 Ur Random Creatinine 122.48 mg/dL 12/18/19 06:00 U Random Total Protein 35.0 mg/dL (0.0-11.9) H 12/18/19 06:00 U Random Total Protein 35.4 mg/dL 12/18/19 06:00 U [place] Prot/Creat Ratio 0.28 12/18/19 06:00 Urine Total Volume 1400 ml 12/18/19 06:00 Ur Total Protein 24 Hr 490.0 mg/24hr (0.0-149.1) H 12/18/19 06:00 Urine Glucose Negative mg/dL (Negative) 12/16/19 18:50
[2019-12-18 11:48] VITALS: BP 117/66; PULSE 62; RESP 18; TEMP 37.2; O2SAT 91
[2019-12-18 13:39] LABS: Creatinine,Urine 122.51 mg/dL
[2019-12-18 13:45] LABS: Creatinine,24hr Ur 1.72 g/24hr (0.95-2.49); Total Volume 1400 ml
[2019-12-18] MEDS: Acetaminophen 325 MG TAB PO ×2 (13:56→18:47)
[2019-12-18] MEDS: Lidocaine 5% Patch 1 PATCH TD (13:57)
[2019-12-18 15:32] LABS: Antithrombin 3, Funct. 100 % (85-125)
[2019-12-18 15:35] VITALS: BP 122/68; PULSE 71; RESP 18; TEMP 36.3; O2SAT 92
[2019-12-18 19:00] VITALS: BP 124/70; PULSE 60; RESP 17; TEMP 36.7; O2SAT 96
[2019-12-18] MEDS: Cyclobenzaprine 10 MG TAB PO (20:36)
[2019-12-18 23:28] VITALS: BP 143/67; PULSE 57; RESP 18; TEMP 36.6; O2SAT 94
[2019-12-19 03:59] VITALS: BP 129/70; PULSE 73; RESP 17; TEMP 37.3; O2SAT 96
[2019-12-19 07:25] VITALS: BP 114/66; PULSE 63; RESP 17; TEMP 36.5; O2SAT 96
[2019-12-19] MEDS: Enoxaparin 100 MG/ML SYR SC (08:09)
[2019-12-19] MEDS: Omeprazole 20 MG CAPCR PO (08:10)
[2019-12-19] MEDS: Sertraline 50 MG TAB PO (08:10)
[2019-12-19] MEDS: Divalproex 250 MG TABEC PO (08:10)
[2019-12-19] MEDS: Pravastatin 20 MG TAB PO (08:10)
[2019-12-19] MEDS: Tamsulosin 0.4 MG CAPCR 0.8 MG PO (08:10)
--- NOTE | 2019-12-19 09:44 | DSE_ITS ---
Date of service: 12/19/19 Time of Service: 09:53 DS: Diagnosis Discharge Diagnosis (1) Thrombosis of left renal vein: Start date: 12/19/19 Start time: 09:53 Status: Acute Asessment and Plan: Found by imaging. Previous provider spoke with hematoloty at [facility]. 24 hour urine recommended, along with lovenox 100 mg subcu BI D x 2 weeks with outpatient transition to warfarin. anti-xa follow up needed with hematology follow up. First anti-xa sent. Lovenox teaching done, patient will bean picker doses from pharmacy and follow up with hematology (2) Abdominal pain: Start date: 12/19/19 Start time: 10:01 Status: Resolved Asessment and Plan: Due to above Discharge Plan Disposition Patient Disposition: HOME Condition: Stable Discharge Details Chief Complaint: Abd Prob Clinical Impression: Abdominal pain, Thrombosis of left renal vein Reason For Visit: LEFT RENAL THROMBOSIS Admit Date/Time: 12/17/19 15:44 Admit Provider: Jacob Nieves Attending Provider: Jacob Nieves Primary Care Provider: Valencia Avina ED Provider: Rip Cheek Hospital Course Hospital Course: 44 y.o male with PMH of BPH, depression, HLD and ADHD admitted to [facility] m/s after presenting to ED with severe crampy abdominal pain, diarrhea and nausea. Imaging in the ED revealed vasculature of the kidney showed a prominent left renal vein with thrombosis that extends into the IVC, labs unremarkable. For this reason he was admitted to observation for further management. During course of hospital stay Hematology was contacted at [facility] and they recommended a 24 hour urine with enoxaparin subcu BID x 2 weeks with transition as an outpatient to warfarin and follow up with hematology. 24 hour urine revealing only 490.0 protein other results pending, concern for nephrotoxic syndrome. Follow up with nephrology as well. Anti-xa done this morning, hematology to decide how often they want anti-xa. Today he is doing well. Feels comfortable giving himself shots. [facility] [place] that is capable of helping him take care of needs. He will bean picker enoxaparin from pharmacy and follow up with hematology as soon as possible. Referral placed. They will call him with appt. He denies CP, SOB, N/V/D and pain. Home Meds and New Rx's Prescriptions: New enoxaparin [Lovenox] 100 mg/mL syringe 100 mg SC Q12H Qty: 28 RF: 0 Continued divalproex [Depakote] 250 mg tablet,delayed release (DR/EC) 250 mg PO BID Qty: 60 RF: 0 tamsulosin 0.4 mg capsule 0.8 mg PO DAILY Qty: 180 RF: 4 omeprazole 20 mg capsule,delayed release(DR/EC) 20 mg PO DAILY Qty: 90 RF: 4 nystatin 100,000 unit/mL suspension 4 ml PO QID Qty: 160 RF: 0 pravastatin 20 mg tablet 20 mg PO DAILY Qty: 90 RF: 4 meclizine 25 mg tablet 25 - 50 mg PO DAILY PRN (Reason: motion sickness) Qty: 30 RF: 2 cyclobenzaprine 10 mg tablet 10 mg PO HS Qty: 14 RF: 0 lidocaine [Aspercreme (lidocaine)] 4 % adhesive patch,medicated 1 patch TP DAILY PRN (Reason: pain) Qty: 1 RF: 0 sertraline 50 mg Tablet 50 mg PO DAILY RF: 0 acetaminophen [Tylenol] 325 mg Tablet 650 mg PO Q6H PRN PRNQty: 30 RF: 0 Discontinued ibuprofen 600 mg tablet 600 mg PO Q8H PRN (Reason: pain) Qty: 20 RF: 0 Discharge Instructions Instructions: Warfarin (By mouth), Vitamin K in Foods (DC), Venous Thromboembolism (DC) Additional Instructions: Follow up with hematology at [facility] [place], they will call you for appointment. If you have not heard anything in a week call care management at [facility]. Follow up with Nephrology at [facility] Follow up with PCP in 1 week. If you have any rectal bleeding, bleeding in your urine report to ED immediately. Continue enoxaparin twice daily for 2 weeks. Then you should start warfarin. Stand Alone Forms: Nursing Discharge Form Referrals: [facility] [Outside] (Nephrology regarding renal vein thrombus.) HEMATOLOGY/ONC,[facility] [OTHER] - (Left renal vein thrombosis, on lovenox on discharge) NEPHROLOGY,[facility] [OTHER] - Activity:: Activity as Tolerated Equipment/Supplies:: No Equipment Needed Diet:: As Tolerated Discharge Orders Discharge Orders: Discharge Order (Routine); Ordered 12/19/19 Ordered By: Prachi Lagunas DS: Summary Status at Discharge Functional status at discharge: independent ambulation Overall status at discharge: patient is back to baseline Mental Status: mental status grossly normal Speech and Movement: speech and movement normal Mood: congruent mood Affect: normal affect Exam Narrative Exam Narrative: General: Pleasant, mildly anxious middle-aged male, A&Ox3, sitting up comfortably in bed HEENT: EOMI, MMM Heart: RRR, no m/r/g Lungs: CTAB Abdomen: soft, nontender, nondistended Extremities: no e/c/c BLE's Psych Mental Status: mental status grossly normal Speech and Movement: speech and movement normal Mood: congruent mood Affect: normal affect DS: Data Vitals/I&O Vitals and I&O: Vital Signs Temperature 36.5 C 12/19/19 07:25 Temperature Source Tympanic 12/19/19 07:25 Pulse 63 12/19/19 07:25 Pulse Rhythm Regular 12/19/19 08:15 Respiratory Rate 17 12/19/19 07:25 Respiratory Effort 12/19/19 08:15 Respiratory Depth Normal 12/19/19 08:15 Respiratory Pattern Normal 12/19/19 08:15 Blood Pressure 114/66 12/19/19 07:25 Blood Pressure Mean 94 12/16/19 18:52 Blood Pressure Position Sitting 12/16/19 17:16 Pulse Oximetry 96 12/19/19 07:25 Oxygen Delivery Method Room Air 12/19/19 07:25 Oxygen Flow Rate 0 12/19/19 07:25 Pain Level 0 12/19/19 07:25 Comment 12/17/19 12:28 Intake & Output 12/18/19 12/18/19 12/19/19 11:59 23:59 11:59 Intake Total 480 / 530 50 / 530 100 / 100 Balance 480 / 530 50 / 530 100 / 100 Weight 94.1 kg 93.5 kg Intake: Oral 480 / 530 50 / 530 100 / 100 Other: Urine Appearance Clear Clear Clear Comment patient uses toilet independently Stool Occult Blood Negative Stool Size Large Stool Characteristics Soft Formed Brown Data Completed and Pending Completed studies during hospitalization [Text1]: Exam(s) a CT:CT abdomen & pelvis w EXAM: CT ABDOMEN PELVIS W CLINICAL HISTORY: left lower abdominal pain TECHNIQUE: Imaging Protocol: Axial computed tomography images with coronal and sagittal reformatted images were created and reviewed CONTRAST MATERIAL: Intravenous: Omnipaque 350 Contrast volume:100 mL Oral: No COMPARISON: ABD PELVIS WITH CONTRAST from 04/02/2017 CT renal colic wo from 11/04/2018 FINDINGS: ABDOMEN: Lung Bases: Dependent atelectasis and/or scarring in the lung bases. Liver: There is diffuse fatty infiltration of the liver. There is a 2.6 x 2.5 cm hypodense lesion in the inferior aspect of the right lobe of the liver. Portal, Superior Mesenteric, and Splenic Veins: Unremarkable. Gallbladder and Biliary Tract: Status post cholecystectomy. No biliary ductal dilatation. Pancreas: Normal density and no abnormal calcifications are present. There is stranding seen around the tail of the pancreas. A small amount of fluid is seen extending into the left pericolic gutter. Spleen: Normal. Adrenals: No masses seen. Kidneys: The right kidney is unremarkable save for a few tiny hypodensities. They are too small for further characterization but likely reflect small cysts. The left kidney is mildly enlarged with delayed enhancement. There are simple cysts present. The largest measures 3.2 cm. The left renal vein is enlarged and contains a thrombus extending from the left renal hilum into the inferior vena cava. Enlarged collateral veins are seen in the perinephric space. No evidence of obstructive uropathy. Abdominal Aorta: Abdominal portion non-dilated. Mild atherosclerosis. Bowel: No obstruction or bowel wall thickening. No evidence of acute appendicitis. Peritoneal Cavity: No ascites, collection or mesenteric inflammatory response. Lymph Nodes: Within normal limits. Bones: Unremarkable. Soft Tissues: Unremarkable. PELVIS: Bladder: Symmetric distention, no gross wall thickening. Reproductive Organs: Unremarkable as visualized. Lymph Nodes: Within normal limits. Bones: Within normal limits. IMPRESSION: 1. Left renal vein thrombus. The thrombus extends from the left renal pelvis into the IVC. 2. Inflammatory stranding seen around the tail of the pancreas suspicious for acute pancreatitis. 3. Low-density lesion in the inferior aspect of the right lobe of the liver. This should be evaluated with a CT scan of the liver utilizing the hemangioma protocol. Exam: CT Abdomen And Pelvis With Contrast Exam date and time: 12/16/2019 5:20 PM Age: 44 years old Clinical indication: Abdominal pain; Generalized; Patient HX: Abd pain 2 days TECHNIQUE: Imaging protocol: Computed tomography of the abdomen and pelvis with intravenous contrast. Radiation optimization: All CT scans at this facility use at least one of these dose optimization techniques: automated exposure control; mA and/or kV adjustment per patient size (includes targeted exams where dose is matched to clinical indication); or iterative reconstruction. Contrast material: OMNI 350; Contrast volume: 100 ml; Contrast route: IV; COMPARISON: CT ABD PELVIS WITH CONTRAST 04/02/2017 3:02 PM FINDINGS: Lungs: There are dependent atelectatic changes at the lung bases. There is fibrosis and scarring at the lung bases. Heart: The visualized portions of the heart and pericardium appeared within normal limits. Liver: There is fatty infiltration of the liver. There is a low-attenuation lesion within the right lobe of the liver measuring 2.6 x2.5 cm. Gallbladder and bile ducts: The patient is status post cholecystectomy. Pancreas: There is slight haziness around the tail of the pancreas. There is fluid adjacent to the pancreas tracking into the left pericolic gutter. These findings are suspicious for acute pancreatitis. Spleen: The spleen is within normal limits. Adrenals: The adrenal glands are unremarkable. Kidneys and ureters: The right kidney is unremarkable. There is a simple cyst within the midpole of left kidney measuring to 3.2 cm. This appears essentially unchanged from the prior study. Stomach and bowel: Unremarkable. No obstruction. No mucosal thickening. Appendix: The appendix is visualized and is within normal limits. Intraperitoneal space: Unremarkable. No free air. No significant fluid collection. Vasculature: The left renal vein is prominent. It is enlarged when compared to the prior study. There is thrombus within the left renal vein. This extends from the left renal pelvis into the IVC. Clinical correlation is recommended. Lymph nodes: No enlarged lymph nodes. Bladder: The urinary bladder is within normal limits. Reproductive: The prostate and seminal vesicles are within normal limits. Bones/joints: The visualized bony structures appear within normal limits. Soft tissues: Unremarkable. IMPRESSION: 1. Acute pancreatitis as above. 2. Thrombosis of the left renal vein. The thrombosis extends from the left renal pelvis into the IVC. 3. Fatty infiltration of the liver. Low-attenuation lesion within the liver can be re-evaluated with CT scan of the liver utilizing hemangioma protocol. 4. Stable simple left midpole renal cyst. 5. Status post cholecystectomy. FINDINGS: ABDOMINAL AORTA AND IVC: Visualized portions normal caliber. Left renal vein was visualized. No color flow is seen within the left renal vein. The finding is consistent with a left renal vein thrombus seen on the CT scan from the day prior. The inferior vena cava appears patent. PANCREAS: Normal where visualized. LIVER: Increased echogenicity throughout the liver consistent with hepatic steatosis. Hepatopedal flow in the Portal Vein. The right hepatic lesions seen on the CT scan is not well visualized on this examination. A CT scan of the abdomen using the hemangioma protocol is recommended. GALLBLADDER: Status post cholecystectomy. BILIARY SYSTEM: Common bile duct measures 7 mm. No intrahepatic biliary ductal dilation. GARCIA'S SIGN: Status post cholecystectomy. KIDNEYS: Kidneys are symmetric in size. No evidence of renal calculi. No evidence of hydronephrosis. There is a 2.8 x 2.7 x 2.6 cm simple left renal cyst. SPLEEN: Not enlarged. ASCITES: None seen. Urinary bladder: The prevoid urinary bladder volume is 191 cc. The patient was unable to void. Both ureteral jets were visualized. Bladder wall appeared smooth. Prostate: Prostatic volume is 27 cc. IMPRESSION: 1. Paddock lesion seen on the CT scan is not visualized on this ultrasound. CT scan of the abdomen is recommended for further evaluation. 2. Lack of flow demonstrated within the left renal vein which contains echogenic material. Finding is consistent with the patient's known left renal vein thrombus. The visualized inferior vena cava appears patent. 3. Hepatic steatosis. 4. Status post cholecystectomy. COMPARISON: XR CHEST 2V PA LATERAL from 08/11/2019 CT ABDOMEN PELVIS W from 12/16/2019 FINDINGS: Tracheobronchial tree: Patent where visualized. Mediastinum and Lenore: No dominant adenopathy or fluid collection. Pulmonary parenchyma: There are infiltrates seen in the lower lobes bilaterally and the left lingula. No pulmonary nodules are identified. Pleura: There is a small left pleural effusion and subjacent infiltrate which may represent atelectasis or pneumonia. There is mild pleural scarring present. Heart: The heart is not dilated. No coronary artery calcifications are seen. No pericardial effusion. Aorta: Thoracic aorta non-dilated. Pulmonary arteries: Not opacified well for assessment for pulmonary embolism. Upper abdomen: Unchanged compared to the CT scan from the day prior. Lymph nodes: Within normal limits. Bones: Normal. IMPRESSION: 1. No evidence of a pulmonary mass or thoracic adenopathy. 2. Bilateral basilar infiltrates which may represent atelectasis or pneumonia. 3. Small left pleural effusion Labs on day of discharge: Labs from last 24 hours 12/19/19 12/18/19 06:57 06:00 Heparin Anti-Xa Level Pending Ur Random Creatinine 122.51 Urine Total Volume 1400 Ur Creatinine 24 Hour 1.72 PFSH Medical History BPH (benign prostatic hyperplasia) (Chronic) Depression (Chronic) Fatty liver (Chronic) GERD (gastroesophageal reflux disease) (Chronic) Hypercholesterolemia (Chronic) Surgical History repair of incarcerated umbilical hernia (Inactive 04/16/17) S/P cholecystectomy (Inactive ~06/2018) S/P colonoscopy (Inactive ~10/13/18) Vasectomy (Inactive) Family History Father Diabetes Essential hypertension Mother Essential hypertension Hyperlipidemia Social History Smoking/Tobacco Use Status: Current every day Tobacco Type: cigarettes Smoking packs per day: 1 Smoking cigarettes per day: 20.0 Years smoked: 20 Smoking pack- years: 20.00 Tobacco: How many years used: 20 Alcohol Intake: never Substance use type: does not use Do you feel safe at home: Yes Do you feel safe in your relationship?: Yes
--- NOTE | 2019-12-19 11:36 | CMDISCH_ITS ---
- If Service Date Differs Date of service: 12/19/19 Time of Service: 11:36 LACE Index Scoring Tool - Questions: Length of Stay (in days): 3 Acuity (Admit via E.D.?): Yes Comorbidities: Liver or Renal Disease E.D. Visits: 3 - Answers: Total Score: 14 Risk of Readmission: High Risk Care Management Discharge Reason for Hospitalization: Left renal thrombosis. Discharge Plan: Huber is being discharged home today he has a plan to manage his Lovenox, he understands he will need to follow up with hematology and nephrology after discharge. RAMILA sent chronic care coorindator a note requesting follow up with Jalen. RAMILA contacted [facility] pharmacy and they have the Lovenox ready to be picked up, which was covered under his Medicaid. Referral has been faxed to [facility] for additional supports. RAMILA contacted [facility] and reviewed the plan, Jalen will provide them with a copy of discharge med list for his file in the home. Jalen will be transported by his Father home today. Patient/Family Education Needs: Discharge education, follow up plan of care and ask me three. Jalen is able to give his own Lovenox inj and understands that he will be bridging to Coumadin.
[2019-12-20 08:31] LABS: COVID-19 RT-PCR Result Negative (Negative)
[2019-12-20 10:41] LABS: PSA, Screening 0.4 ng/mL (0.0-2.5)
[2019-12-20 16:18] LABS: Heparin Anti-Xa, P 0.42 IU/mL
[2019-12-21 09:20] LABS: Dilute Russell Viper Venom 71.5 secs (27.2-36.9); LA Cascade Summary (See Note); Silica Clotting Time 39.1 secs (30.2-48.4)
[2019-12-21 10:34] LABS: DVV Control 32.8 secs
[2019-12-21 11:01] LABS: Thrombin Time 12.3 secs (10.3-16.9)
[2019-12-22 11:23] LABS: Protein C, Functional 146 % (71-199); Protein S, Functional 110 % (73-156)
[2019-12-31 10:38] LABS: Albumin Excretion Rate 106 mcg/min (<20); Albumin, 24hr, U 152 mg/24h (<30); Urine Volume 1400 mL
[2019-12-31 10:39] LABS: Albumin Concentration 108.9 mg/L
== END 2019-12-19 11:40 | disposition home or self-care (01) | DRG 700 ==
LOC: ER 19:24 → MS 19:50
PROVIDERS: Nurse Practitioner Family; Admitting Provider Internal Medicine; Emergency Provider Emergency Medicine; PCP Family Medicine; Visit Provider Internal Medicine
DX: I82.3 Embolism and thrombosis of renal vein (principal); F17.210 Nicotine dependence, cigarettes, uncomplicated; E78.5 Hyperlipidemia, unspecified; N40.0 Benign prostatic hyperplasia without lower urinary tract symptoms; Z11.59 Encounter for screening for other viral diseases; F32.9 Major depressive disorder, single episode, unspecified
CPT/HCPCS: 36415; 76770; 80048; 80053; 81240; 81241; 83690; 84153; 85300; 85303; 85306; 85610; 85613; 85670; 85730; 85732; 86147; 96361; 96374; 96375; 99220; 99232; 99233; 99239; 99285; U0003; 71260; 74177; 76700; 81003; 81015; 81050; 82043; 82248; 82565; 82570; 83735; 84155; 84156; 85025; 85240; 85379; 85520; G0378; J1650; J2405; J3490

== ENCOUNTER 2019-12-28 09:44 | Outpatient (CLI) | payer MEDICAID, SELFPAY ==
[2019-12-28 15:35] LABS: Abs Immature Grans 0.01 k/cumm (0.0-0.09); Absolute Basophil Count 0.02 k/cumm (0.0-0.2); Absolute Eosinophil Count 0.08 k/cumm (0.0-0.7); Absolute Lymphocyte Count 2.27 k/cumm (1.2-3.4); Absolute Monocyte Count 0.56 k/cumm (0.11-0.7); Absolute Neutrophil Count 3.52 k/cumm (1.2-6.7); Basophils % 0.3; Eosinophils % 1.2; HCT 41.7 % (40.0-50.0); HGB 14.1 g/dL (13.5-17.5); Immature Grans % 0.2 %; Lymphocytes % 35.1; Mean Corp. HGB Concentration 33.8 g/dL (32.0-36.0); Mean Corpuscular Hemoglobin 32.6 pg (27.0-33.0); Mean Corpuscular Volume 96.3 fL (80-95); Mean Platelet Volume 9.9 fL (8.0-11.0); Monocytes % 8.7; Neutrophils % 54.5; Platelet Count 397 x1000/uL (130-400); RBC 4.33 m/cumm (4.50-6.00); RBC Distribution Width 12.9 % (11.8-14.1); White Blood Cell Count 6.46 k/cumm (4.4-10.8)
== END 2019-12-28 10:04 ==
PROVIDERS: PCP Family Medicine; Visit Provider Internal Medicine Hematology
DX: E61.1 Iron deficiency (principal)
CPT/HCPCS: 36415; 85025

== ENCOUNTER 2020-01-18 12:52 | Outpatient (CLI) | payer MEDICAID, SELFPAY ==
[2020-01-18 15:47] LABS: Abs Immature Grans 0.01 k/cumm (0.0-0.09); Absolute Basophil Count 0.02 k/cumm (0.0-0.2); Absolute Eosinophil Count 0.09 k/cumm (0.0-0.7); Absolute Lymphocyte Count 2.49 k/cumm (1.2-3.4); Absolute Monocyte Count 0.64 k/cumm (0.11-0.7); Absolute Neutrophil Count 2.69 k/cumm (1.2-6.7); Basophils % 0.3; Eosinophils % 1.5; HCT 42.4 % (40.0-50.0); HGB 14.5 g/dL (13.5-17.5); Immature Grans % 0.2 %; Lymphocytes % 41.9; Mean Corp. HGB Concentration 34.2 g/dL (32.0-36.0); Mean Corpuscular Hemoglobin 32.4 pg (27.0-33.0); Mean Corpuscular Volume 94.9 fL (80-95); Mean Platelet Volume 10.8 fL (8.0-11.0); Monocytes % 10.8; Neutrophils % 45.3; Platelet Count 231 x1000/uL (130-400); RBC 4.47 m/cumm (4.50-6.00); White Blood Cell Count 5.94 k/cumm (4.4-10.8)
[2020-01-18 16:00] LABS: INR 1.8 (0.9-1.1); Prothrombin Time 17.6 sec (9.3-11.0)
== END 2020-01-18 13:12 ==
PROVIDERS: PCP Family Medicine; Visit Provider Internal Medicine Hematology
DX: E61.1 Iron deficiency (principal); Z79.01 Long term (current) use of anticoagulants
CPT/HCPCS: 36415; 85025; 85610

== ENCOUNTER 2020-01-21 08:33 | Outpatient (CLI) | payer MEDICAID, SELFPAY ==
[2020-01-21 15:33] LABS: Abs Immature Grans 0.01 k/cumm (0.0-0.09); Absolute Basophil Count 0.01 k/cumm (0.0-0.2); Absolute Eosinophil Count 0.06 k/cumm (0.0-0.7); Absolute Lymphocyte Count 2.24 k/cumm (1.2-3.4); Absolute Monocyte Count 0.59 k/cumm (0.11-0.7); Basophils % 0.1; Eosinophils % 0.9; HCT 42.6 % (40.0-50.0); HGB 14.6 g/dL (13.5-17.5); Immature Grans % 0.1 %; Lymphocytes % 32.4; Mean Corp. HGB Concentration 34.3 g/dL (32.0-36.0); Mean Corpuscular Hemoglobin 32.5 pg (27.0-33.0); Mean Corpuscular Volume 94.9 fL (80-95); Mean Platelet Volume 10.5 fL (8.0-11.0); Monocytes % 8.5; Platelet Count 240 x1000/uL (130-400); RBC 4.49 m/cumm (4.50-6.00); RBC Distribution Width 13.1 % (11.8-14.1); White Blood Cell Count 6.91 k/cumm (4.4-10.8)
[2020-01-21 15:45] LABS: INR 2.2 (0.9-1.1); Prothrombin Time 21.8 sec (9.3-11.0)
== END 2020-01-21 08:53 ==
PROVIDERS: PCP Family Medicine; Visit Provider Internal Medicine Hematology
DX: Z79.01 Long term (current) use of anticoagulants (principal); E61.1 Iron deficiency
CPT/HCPCS: 36415; 85025; 85610

== ENCOUNTER 2020-01-31 02:19 | Outpatient (CLI) | payer MEDICAID, SELFPAY ==
[2020-01-31 15:40] LABS: INR 2.7 (0.9-1.1); Prothrombin Time 26.5 sec (9.3-11.0)
== END 2020-01-31 02:39 ==
PROVIDERS: PCP Family Medicine; Visit Provider Family Medicine
DX: Z79.01 Long term (current) use of anticoagulants (principal); I80.8 Phlebitis and thrombophlebitis of other sites
CPT/HCPCS: 36415; 85610

== ENCOUNTER 2020-02-08 03:49 | Outpatient (CLI) | payer MEDICAID, SELFPAY ==
[2020-02-08 11:22] LABS: Abs Immature Grans 0.01 k/cumm (0.0-0.09); Absolute Basophil Count 0.02 k/cumm (0.0-0.2); Absolute Eosinophil Count 0.11 k/cumm (0.0-0.7); Absolute Lymphocyte Count 1.97 k/cumm (1.2-3.4); Absolute Monocyte Count 0.65 k/cumm (0.11-0.7); Absolute Neutrophil Count 5.76 k/cumm (1.2-6.7); Basophils % 0.2; Eosinophils % 1.3; HCT 42.9 % (40.0-50.0); HGB 14.7 g/dL (13.5-17.5); Immature Grans % 0.1 %; Lymphocytes % 23.1; Mean Corp. HGB Concentration 34.3 g/dL (32.0-36.0); Mean Corpuscular Hemoglobin 32.4 pg (27.0-33.0); Mean Corpuscular Volume 94.5 fL (80-95); Mean Platelet Volume 10.2 fL (8.0-11.0); Monocytes % 7.6; Neutrophils % 67.7; Platelet Count 277 x1000/uL (130-400); RBC 4.54 m/cumm (4.50-6.00); RBC Distribution Width 13.6 % (11.8-14.1); White Blood Cell Count 8.52 k/cumm (4.4-10.8)
[2020-02-08 11:27] LABS: INR 2.2 (0.9-1.1); Prothrombin Time 21.9 sec (9.3-11.0)
== END 2020-02-08 04:09 ==
PROVIDERS: PCP Family Medicine; Visit Provider Internal Medicine Hematology
DX: Z79.01 Long term (current) use of anticoagulants (principal); E61.1 Iron deficiency
CPT/HCPCS: 36415; 85025; 85610

== ENCOUNTER 2020-02-23 02:14 | Outpatient (CLI) | payer MEDICAID, SELFPAY ==
[2020-02-23 13:55] LABS: INR 1.5 (0.9-1.1); Prothrombin Time 14.9 sec (9.3-11.0)
== END 2020-02-23 02:34 ==
PROVIDERS: PCP Family Medicine; Visit Provider Family Medicine
DX: I80.8 Phlebitis and thrombophlebitis of other sites (principal); Z79.01 Long term (current) use of anticoagulants
CPT/HCPCS: 36415; 85610

== ENCOUNTER 2020-03-10 03:17 | Outpatient (CLI) | payer MEDICAID, SELFPAY ==
[2020-03-10 12:04] LABS: ALT 29 U/L (16-63); AST 17 U/L (15-37); Albumin 3.9 g/dL (3.4-5.0); Alkaline Phosphatase 62 U/L (46-116); Anion Gap 7.6 mmol/L (3-11); BUN 13 mg/dL (7-18); Bilirubin, Total 0.3 mg/dL (0.2-1.0); CO2 28.4 mmol/L (21.0-32.0); CREATININE 0.86 mg/dL (0.70-1.30); Calculated LDL 190 mg/dL (<100); Chloride 104 mmol/L (98-107); Cholesterol 270 mg/dL (<200); Glucose 100 mg/dL (74-106); HDL Cholesterol 42 mg/dL (40-60); Potassium 4.5 mmol/L (3.5-5.1); Sodium 140 mmol/L (136-145); TSH 0.53 uIU/mL (0.36-3.74); Total Protein 7.5 g/dL (6.4-8.2); Triglyceride 190 mg/dL (<150)
== END 2020-03-10 03:37 ==
PROVIDERS: PCP Family Medicine; Visit Provider Family Medicine
DX: R63.5 Abnormal weight gain (principal); E78.5 Hyperlipidemia, unspecified; E83.42 Hypomagnesemia; E87.5 Hyperkalemia
CPT/HCPCS: 36415; 80053; 80061; 83735; 84443

== ENCOUNTER 2020-06-28 03:38 | Outpatient (CLI) | payer MEDICAID, SELFPAY ==
[2020-06-28 12:12] LABS: Calculated LDL 184 mg/dL (<100); Cholesterol 269 mg/dL (<200); HDL Cholesterol 43 mg/dL (40-60); Triglyceride 213 mg/dL (<150)
== END 2020-06-28 03:58 ==
PROVIDERS: PCP Family Medicine; Visit Provider Family Medicine
DX: E78.5 Hyperlipidemia, unspecified (principal)
CPT/HCPCS: 36415; 80061

== ENCOUNTER 2020-09-08 03:41 | Outpatient (CLI) | payer MEDICAID, SELFPAY ==
[2020-09-10 20:06] LABS: COVID-19 RT-PCR Result NEGATIVE (Negative)
== END 2020-09-08 04:01 ==
PROVIDERS: PCP Family Medicine; Visit Provider Nurse Practitioner
DX: Z11.52 Encounter for screening for COVID-19 (principal); Z01.818 Encounter for other preprocedural examination
CPT/HCPCS: U0003

== ENCOUNTER 2020-09-13 04:41 | Outpatient (CLI) | payer MEDICAID, SELFPAY ==
[2020-09-13 11:07] LABS: HCT 42.1 % (40.0-50.0); HGB 14.5 g/dL (13.5-17.5); MCH 33.3 pg (27.0-33.0); MCHC 34.4 % (32.0-36.0); MCV 96.8 fL (80-95); MPV 10.3 fL (8.0-11.0); Platelet Count 242 10^3/uL (130-400); RBC 4.35 10^6/uL (4.36-5.78); RDW 13.2 % (11.8-14.1); RDW-SD 47.2 fL; WBC 10.22 10^3/uL (4.4-10.8)
[2020-09-13 11:24] LABS: PTT Activated 24.1 sec (21.0-27.5); Prothrombin Time 10.2 sec (9.3-11.0)
[2020-09-13 11:42] LABS: D-Dimer 582 ng/mlFEU (<500)
[2020-09-13 11:58] LABS: COMMENT (LAB VIEW ONLY) 73.19 mg/dL; Microalb ug/mg Crea 6.7 ug/mg Cr
[2020-09-13 12:00] LABS: ALT 43 U/L (16-63); AST 20 U/L (15-37); Albumin 3.7 g/dL (3.4-5.0); Alkaline Phosphatase 70 U/L (46-116); Anion Gap 6.4 mmol/L (3-11); BUN 12 mg/dL (7-18); Bilirubin, Total 0.4 mg/dL (0.2-1.0); CO2 29.6 mmol/L (21.0-32.0); CREATININE 0.88 mg/dL (0.70-1.30); Calcium 8.7 mg/dL (8.5-10.1); Chloride 104 mmol/L (98-107); Glucose 111 mg/dL (74-106); Potassium 4.6 mmol/L (3.5-5.1); Sodium 140 mmol/L (136-145); Total Protein 7.3 g/dL (6.4-8.2)
[2020-09-14 09:34] LABS: Factor 8 Assay 167 % (50-150)
[2020-09-14 16:11] LABS: Antithrombin Activity, Plasma 90 % (80 - 130)
[2020-09-14 16:47] LABS: Dilute Russell Viper Venom 42.6 secs (27.2-36.9); LA Cascade Summary (See Note); Silica Clotting Time 43.7 secs (30.2-48.4)
[2020-09-15 15:42] LABS: Phospholipid Ab, IgG <9.4 GPL; Phospholipid Ab, IgM <9.4 MPL
[2020-09-15 17:37] LABS: Beta 2 GP1 Ab IgM <9.4 U/mL
[2020-09-15 17:53] LABS: Beta 2 GP1 Ab IgG <9.4 U/mL
[2020-09-15 18:01] LABS: Beta 2 Glycoprotein 1 Ab IgA <9.4 U/mL
[2020-09-20 11:42] LABS: Protein C, Functional >150 % (71-199); Protein S, Functional 131 % (73-156)
== END 2020-09-13 05:01 ==
PROVIDERS: PCP Family Medicine; Visit Provider Internal Medicine Hematology
DX: D68.59 Other primary thrombophilia (principal)
CPT/HCPCS: 36415; 80053; 85027; 85300; 85306; 85307; 85732; 86146; 86147; 87116; 82043; 82570; 85240; 85303; 85379; 85610; 85730

== ENCOUNTER 2020-10-10 02:28 | Outpatient (CLI) | payer MEDICAID, SELFPAY ==
[2020-10-10 11:17] LABS: ALT 34 U/L (16-63); Calculated LDL 116 mg/dL (<100); Cholesterol 195 mg/dL (<200); HDL Cholesterol 46 mg/dL (40-60); Triglyceride 166 mg/dL (<150)
[2020-10-10 21:30] LABS: Fibrinogen 282 mg/dl (171-384)
[2020-10-11 09:41] LABS: Factor 2 Assay 136 % (73-133); Factor 5 Assay 120 % (63-135)
[2020-10-11 09:53] LABS: Factor 10 Assay 131 % (86-195)
[2020-10-18 11:23] LABS: Misc Referral (MAYO) See Comments
== END 2020-10-10 02:29 | disposition home or self-care (01) ==
LOC: LBO 02:28
PROVIDERS: Family Medicine; PCP Family Medicine; Visit Provider Internal Medicine Hematology
DX: D68.59 Other primary thrombophilia (principal); E78.5 Hyperlipidemia, unspecified
CPT/HCPCS: 36415; 80053; 80061; 82784; 85027; 85384; 86146; 82043; 82570; 84460; 85210; 85260; 85610

== ENCOUNTER 2020-11-01 01:23 | Outpatient (CLI) | payer MEDICAID, SELFPAY ==
--- NOTE | 2020-11-01 06:30 | DI.US_ITS ---
EXAM: US ABDOMEN CLINICAL HISTORY: ruq pain,R10.11 TECHNIQUE: Ultrasound abdomen performed using standard protocol. COMPARISON: CT ABD PELVIS WITH CONTRAST from 04/02/[address] ABDOMEN PELVIS W from 12/16/2019 US US ABDOMEN RENAL from 12/17/2019 FINDINGS: ABDOMINAL AORTA AND IVC: Visualized portions normal caliber. PANCREAS: Normal where visualized. LIVER: The liver measures 13 cm in length. There is diffuse increased echogenicity of the liver cons istent with fatty infiltration. No hepatic lesion is seen sonographically. Hepatopedal flow in the Portal Vein. GALLBLADDER: Status post cholecystectomy. BILIARY SYSTEM: Common bile duct measures < 7 mm. No intrahepatic biliary ductal dilation. KIDNEYS: Kidneys are symmetric in size. No evidence of renal calculi. No evidence of hydronephrosis. There is a 3.3 x 3.1 cm simple cyst in the midpole of the left kidney this is unremarkable care datin g back to CT scans from 2016. No solid component is identified. SPLEEN: Not enlarged. ASCITES: None seen. IMPRESSION: 1. Hepatic steatosis. 2. No evidence of a hepatic lesion. 3. Stable 3.3 cm simple left renal cyst. 4. Status post cholecystectomy. No biliary ductal dilatation. DATA REPOSITORY:
== END 2020-11-01 01:43 ==
PROVIDERS: PCP Family Medicine; Visit Provider Family Medicine
DX: R10.11 Right upper quadrant pain (principal); K76.0 Fatty (change of) liver, not elsewhere classified; N28.1 Cyst of kidney, acquired; Z90.49 Acquired absence of other specified parts of digestive tract
CPT/HCPCS: 76700

== ENCOUNTER 2020-11-29 02:16 | Outpatient (CLI) | payer MEDICAID, SELFPAY ==
[2020-11-29 09:35] LABS: ALT 34 U/L (16-63); AST 17 U/L (15-37); Albumin 4.2 g/dL (3.4-5.0); Alkaline Phosphatase 80 U/L (46-116); Anion Gap 6.8 mmol/L (3-11); BUN 15 mg/dL (7-18); Bilirubin, Total 0.3 mg/dL (0.2-1.0); CO2 30.2 mmol/L (21.0-32.0); Calcium 9.2 mg/dL (8.5-10.1); Chloride 102 mmol/L (98-107); Glucose 109 mg/dL (74-106); Potassium 4.1 mmol/L (3.5-5.1); Sodium 139 mmol/L (136-145); Total Protein 8.8 g/dL (6.4-8.2)
--- NOTE | 2020-11-29 10:05 | DI.CT_ITS ---
EXAM: CT ABDOMEN W CLINICAL HISTORY: RUQ pain/hx left renal thrombosis 2019/S/P NANCY TECHNIQUE: Intravenous contrast: Omnipaque 350-100 cc COMPARISON: CT CT ABDOMEN PELVIS W from 12/16/2019 FINDINGS: Visualized lung bases exhibits some improvement. Mild increased dependent markings but no confluent infiltrates nor pleural effusions seen. In the abdomen there is no ascites. Steatosis is again noted and the previously described 2.6 x 2.5 centimeter hypodense lesion in the inferior aspect right hepatic lobe is again noted, unchanged. The re are no new additional lesions in the liver.. Intrahepatic systemic veins and intrahepatic IVC are patent has are intrahepatic portal veins. The gallbladder is again noted be surgically absent. The CBD is not dilated. Pancreas appears unrem arkable. No mass. No dilatation of the pancreatic duct and no peripancreatic fluid collection. The previously present stranding around the pancreatic tail is no longer seen. No evidence of abnormal fluid collection/pseudocyst. Spleen size is normal. No splenic lesions seen. The splenic and portal veins are patent. Portal ve in confluence and superior mesenteric vein are also noted to be patent. There are no adrenal masses. With respect to the kidneys, the previously present extensive thrombosis of the left renal vein is no longer seen. The left renal vein on today's study is significantly thinner, no longer expanded by t hrombus. However, is difficult to determine if it is truly patent. The previously described collate ral veins around the left kidney are again noted. These have not decreased in size. There is no int raluminal thrombus evident within the IVC and the IVC is not changed caliber significantly. There is also no evidence of intraluminal thrombus within the intrahepatic IVC nor in the right-side of the h eart.. The opposite-right renal vein is also patent. Tiny cysts are noted in the right kidney and l arger cysts in the left kidney, the largest measuring 3.6 by 3.3 cm. There is no obvious solid renal mass. There is, however, slight AC in a surround the ureteropelvic junction left kidney. Possibly significant. The abdominal aorta is not enlarged. The celiac and superior mesenteric arteries are widely patent a nd the inferior mesenteric artery is also patent. Both renal arteries are nicely patent with no sign ificant stenosis nor evidence of fibromuscular dysplasia. Both kidneys exhibit normal size. No evidence of significant anterior abdominal hernia in the field of view of this study. An no evide nce of bowel obstruction. Osseous: No significant osseous lesions evident within the field of view of this abdominal study. IMPRESSION: 1. Previously expanded and thrombosed left renal vein is now with thin, no longer expanded. There is a suggestion of some flow within this vein but difficult to assess due to help thin it is plus the f act that there are still collaterals which drains at the possible that there still an element of obst ruction in the left renal vein despite this vein no longer being expanded by intraluminal thrombus. 2. Another issue to consider here is why this patient had a left renal vein thrombosis in the 1st silvino ce. Although there does not appear to be an obvious renal malignancy in the ipsilateral-left kidney, there is mild streaking around the left renal pelvis-ureteropelvic junction. Recommend urology cons ultation for consideration for possible retrograde study to ensure that there is no neoplasm in the r enal pelvis here. 3. Again noted is a previously described solitary lesion in the liver which is in the lower aspect of the right hepatic lobe. This should be further evaluated multiphase contrast infused MRI using regan ngioma protocol to determine if this is a benign or malignant appearing lesion. 4. The previously present peripancreatic streaking is no longer seen and there is no abnormal fluid c ollection. Also no thrombosis of the splenic vein.
[2020-11-29] MEDS: Normal Saline - Diluent 50 ML VIAL IV (10:11)
[2020-11-29] MEDS: Omnipaque 350 MG/ML 100 ML BTL IJ (10:12)
[2020-11-29] MEDS: Normal Saline Flush 10 ML SYR IVP (10:13)
== END 2020-11-29 02:36 ==
PROVIDERS: PCP Family Medicine; Visit Provider Family Medicine
DX: R10.11 Right upper quadrant pain (principal); K76.0 Fatty (change of) liver, not elsewhere classified; K76.89 Other specified diseases of liver; Z90.49 Acquired absence of other specified parts of digestive tract
CPT/HCPCS: 80053; 74160; J3490

== ENCOUNTER 2021-01-23 20:19 | Emergency (ER) | payer MEDICAID, SELFPAY ==
--- NOTE | 2021-01-23 20:15 | DI.RAD_ITS ---
Exam(s) XR HAND LT COMPLETE EXAM: XR HAND LT COMPLETE CLINICAL HISTORY: concern for metal in thenar eminence. TECHNIQUE: 2D digital imaging was performed. COMPARISON: No exams were available for comparison FINDINGS: There is no evidence of fracture or dislocation. No osseous lesions. However, there are 2 metallic foreign bodies. One of these is in the thenar eminence. The other is in the 2nd-index finger just lateral to the base of the middle phalanx. There is no radiographic arsen dence of fracture or osteomyelitis. No other foreign bodies evident in the hand. No incidental osse ous lesions. IMPRESSION: DATA REPOSITORY: RADIATION DOSE DELIVERED:
--- NOTE | 2021-01-23 20:21 | W.ED.GENAD ---
Discharge Plan Disposition Patient Disposition: HOME Condition: Stable Discharge Details Clinical Impression: Metal foreign body in hand Primary Care Provider: Valencia Avina ED Provider: Malka Pires Home Meds and New Rx's Prescriptions: New amoxicillin-pot clavulanate [Augmentin] 875-125 mg tablet 1 tab PO BID 4 Days Qty: 8 RF: 0 Continued pravastatin 40 mg tablet 40 mg PO DAILY Qty: 90 RF: 4 Eliquis 2.5 mg tablet 2.5 mg PO BID Qty: 60 RF: 0 meclizine 25 mg tablet 25 - 50 mg PO DAILY PRN (Reason: motion sickness) Qty: 30 RF: 2 rosuvastatin 20 mg tablet 20 mg PO DAILY Qty: 30 RF: 11 Hold Instructions: Home Medication placed on hold at Doctor's office dicyclomine 10 mg capsule 10 mg PO TID PRN (Reason: abdominal pain) Qty: 25 RF: 0 divalproex [Depakote] 250 mg tablet,delayed release (DR/EC) 250 mg PO BID Qty: 60 RF: 3 tamsulosin 0.4 mg capsule 0.8 mg PO DAILY Qty: 180 RF: 4 omeprazole 20 mg capsule,delayed release(DR/EC) 20 mg PO DAILY Qty: 90 RF: 4 lidocaine [Aspercreme (lidocaine)] 4 % adhesive patch,medicated 1 patch TP DAILY PRN (Reason: pain) Qty: 1 RF: 0 acetaminophen [Tylenol] 325 mg Tablet 650 mg PO Q6H PRN PRNQty: 30 RF: 0 Discharge Instructions Instructions: Amoxicillin/Clavulanate Potassium (By mouth), Puncture Wound (ED) Additional Instructions: Keep wound clean, dry, covered. Attempts were made to remove foreign body and was unsuccessful. Please take the antibiotics as prescribed to prevent infection. You will need follow-up with orthopedics, number listed below. Please call tomorrow to schedule follow-up appointment. If you develop fever/chills, increased pain, discharge or other new/worsening symptom please seek care urgently once again. Tetanus was updated today. Referrals: Valencia Avina MD [Primary Care Provider] - Dominic Johnson MD [ [facility] STAFF PHYSICIAN] - Discharge Data Discharge Date/Time-TO BE ENTERED AT DEPARTURE: 01/23/21 22:55 Medical Decision Making Patient is a pleasant 45-year-old [id number] male presenting today with chief complaint of foreign body in left hand. 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 Reports pain. Pain is radiating up into the left wrist. Denies other injury the time of the incident. Unknown tetanus status. No fevers or chills. Denies numbness or tingling. No weakness On exam, patient appears to be nontoxic. He has a 2 mm puncture wound over the left thenar eminence. Good range of motion of the thumb. Intact capillary refill pulses. Sensation intact. No palpable foreign body. Will obtain x-ray. He declines any analgesics. Tetanus 9 years old, will update today X-ray obtained. Metal foreign body noted on x-ray consistent with wound noted on exam. Patient also appears to have a piece of metal in the index finger. He does have a small scar over this area. However, this is not acute or bothersome. Discussed the findings with the patient. Consulted with Dr. Johnson. He recommending anesthetizing the wound and elongate the puncture wound to try and find a retained foreign body Discussed risk/benefits as well as expected procedural steps associated with foreign body removal with the patient. He was understanding and wishes to proceed. Please see procedure note. Wound was elongated to approximately 8 mm. Foreign body was not able to be palpated or visualized. Ultrasound was also used and still unable to find retained metal foreign body. Wound will be left open to allow for drainage and hopefully migration of metal out. We will place the patient on antibiotic. Wound was dressed. Patient will follow up with orthopedics. Patient does have a history of cephalexin allergy but has been on cefotetan him and tolerated this well in the past. Will treat with Augmentin. Strict return precautions were discussed, in particular signs of infection. He will call orthopedics tomorrow to schedule follow-up appointment. We discussed wound care in depth. All his questions and concerns were addressed and he is in agreement this plan Tetanus updated today HPI General Mode of arrival: ambulatory. Date/Time Provider Initiated Documentation: 01/23/21 20:19. Limitations to Documentation: no limitations. Information obtained by: patient and RN notes reviewed. History of Present Illness 45 year old M presents to the emergency department with the chief complaint of left hand pain, described as mild, with intensity rated at 2. Quality is described as burning, and is localized to the left and upper extremity. Patient extremity (around wound and proximal to this). Patient started experiencing this minute(s) and it has been constant. Immobilization improves symptom(s), Movement worsens symptoms . Patient notes no other symptoms.. Patient did receive the following treatments prior to arrival, none Related Data Home Medications Medication Instructions Recorded Confirmed acetaminophen [Tylenol] 650 mg PO Q6H PRN PRN #30 tab 06/04/18 01/23/21 meclizine 25 mg tablet 25 - 50 mg PO DAILY PRN #30 tab-cap 08/02/19 01/23/21 lidocaine [Aspercreme (lidocaine)] 1 patch TP DAILY PRN #1 each 08/19/19 01/23/21 divalproex 250 mg tablet,delayed 250 mg PO BID #60 tab 03/31/20 01/23/21 release rosuvastatin 20 mg tablet 20 mg PO DAILY #30 tab 07/19/20 01/23/21 pravastatin 40 mg tablet 40 mg PO DAILY #90 tab 10/25/20 01/23/21 apixaban 2.5 mg tablet 2.5 mg PO BID #60 tab 10/27/20 01/23/21 dicyclomine 10 mg capsule 10 mg PO TID PRN #25 cap 11/15/20 01/23/21 omeprazole 20 mg capsule,delayed 20 mg PO DAILY #90 cap 12/07/20 01/23/21 release tamsulosin 0.4 mg capsule 0.8 mg PO DAILY #180 cap 12/07/20 01/23/21 amoxicillin-pot clavulanate 1 tab PO BID 4 Days #8 tab 01/23/21 [Augmentin] Previous Rx's Medication Instructions Recorded acetaminophen [Tylenol] 650 mg PO Q6H PRN PRN #30 tab 06/04/18 meclizine 25 mg tablet 25 - 50 mg PO DAILY PRN #30 tab-cap 08/02/19 lidocaine [Aspercreme (lidocaine)] 1 patch TP DAILY PRN #1 each 08/19/19 divalproex 250 mg tablet,delayed 250 mg PO BID #60 tab 03/31/20 release rosuvastatin 20 mg tablet 20 mg PO DAILY #30 tab 07/19/20 pravastatin 40 mg tablet 40 mg PO DAILY #90 tab 10/25/20 apixaban 2.5 mg tablet 2.5 mg PO BID #60 tab 10/27/20 dicyclomine 10 mg capsule 10 mg PO TID PRN #25 cap 11/15/20 omeprazole 20 mg capsule,delayed 20 mg PO DAILY #90 cap 12/07/20 release tamsulosin 0.4 mg capsule 0.8 mg PO DAILY #180 cap 12/07/20 amoxicillin-pot clavulanate 1 tab PO BID 4 Days #8 tab 01/23/21 [Augmentin] Allergies Allergy/AdvReac Type Severity Reaction Status Date / Time cephalexin Allergy Unverified 01/23/21 20:28 General DARI: 3 Review of Systems Constitutional Constitutional: Reports as per HPI, Denies chills, Denies fever(s), Denies headache(s) and Denies weakness ENT Ears, Nose, Mouth, and Throat: Denies headache(s) Cardiovascular Cardiovascular: Reports as per HPI Respiratory Respiratory: Reports as per HPI and Denies cough Musculoskeletal Musculoskeletal: Reports as per HPI and Denies tingling Integumentary/Breasts Skin/Breast: Reports as per HPI, Denies rash and Reports wounds Neurologic Neurologic: Reports as per HPI, Denies headache(s), Denies tingling, Denies paresthesias and Denies weakness PFSH Medical History BPH (benign prostatic hyperplasia) Depression Fatty liver GERD (gastroesophageal reflux disease) Hypercholesterolemia Hypercoagulable state Surgical History repair of incarcerated umbilical hernia (04/16/17) S/P cholecystectomy (~06/2018) S/P colonoscopy (~10/13/18) Vasectomy Family History Father Diabetes Essential hypertension Mother Essential hypertension Hyperlipidemia Social History Smoking/Tobacco Use Status: Current every day Tobacco Type: cigarettes Smoking packs per day: 1 Smoking cigarettes per day: 20.0 Years smoked: 20 Smoking pack-years: 20.00 Tobacco: How many years used: 20 Smoking risk assessment performed?: Yes Alcohol Intake: current Alcohol Intake frequency: a few times a month Drug use: Never Substance use type: does not use Do you feel safe at home: Yes Do you feel safe in your relationship?: Yes Exam Const General: cooperative, healthy appearing, comfortable, no acute distress, well developed and well groomed Nutritional Appearance: average body habitus and well nourished Orientation: alert and awake Resp Effort & Inspection: normal respiratory effort, able to speak in complete sentences and no respiratory distress Cardio Rate: regular rate Rhythm: regular rhythm Skin Trauma: puncture (2mm puncture wound left thenar eminence, no bleeding, sweling or discharge) Neuro General: patient alert and patient awake Cognition: normal cognition Speech: speech normal Gait: normal gait Motor: muscle tone normal throughout Sensory Exam: no sensory deficits noted Extrem Left upper extremity: normal to inspection, full ROM, normal capillary refill, no joint enlargement, wrist Details: normal to inspection, normal ROM, normal vascular exam and radial pulse present; no tenderness, no swelling, no lacerations and no ecchymosis and hand Details: normal to inspection (puncture wound), normal capillary refill, neuromotor exam normal Details: wrist extension normal, thumb opposition normal, thumb IP flexion normal and thumb ADduction normal, neurosensory exam normal Details: radial nerve sensory function normal, ulnar nerve sensory function normal and median nerve sensory function normal, tendon exam normal, tenderness (thenar eminence), vascular exam Details: radial pulse present and normal capillary refill, normal ROM of fingers, laceration (puncture) and puncture wound; no unusual warmth, no swelling and no ecchymosis Psych Appearance: grossly normal and well kempt Mental Status: mental status grossly normal Speech and Movement: speech and movement normal Procedures Foreign Body Removal Time Out Performed: yes Site: left and hand Sedation/Analgesia: none Technique: removal with forceps, incision made to facilitate removal and irrigation Confirmed by:: ultrasound, palpation and other (FB was not able to be removed) Complications: none Post-procedure exam: awake, alert Neurovascular: normal distal pulse, normal capillary fill, distal light touch sensation intact and distal motor function normal
[2021-01-23 20:23] VITALS: BP 130/84; PULSE 69; RESP 16; TEMP 36.6; O2SAT 96
--- NOTE | 2021-01-23 21:22 | DI.VRAD_ITS ---
PROCEDURE INFORMATION: Exam: XR Left Hand Exam date and time: 01/23/2021 8:45 PM Age: 45 years old Clinical indication: Pain; Hand; Left; Patient HX: Concern for metal in thenar eminence TECHNIQUE: Imaging protocol: XR Left hand. Views: 3 or more views. COMPARISON: No relevant prior studies available. FINDINGS: Bones/joints: Bones and joints are intact. Normal osseous mineralization. Soft tissues: Soft tissue metallic fragments 3 mm in length are noted radial to the index finger proximal interphalangeal joint and in the anterior thenar eminence. IMPRESSION: Tiny soft tissue metallic fragments in the index finger and thenar eminence. Dictated and Authenticated by: Darren Muñoz MD. Ordering:IAN Ace MD
[2021-01-23] MEDS: Lidocaine/Epinephri/Tetracaine Topical Gel 3 ML (21:23)
--- NOTE | 2021-01-23 22:15 | DI.RAD_ITS ---
Exam(s) XR HAND LT LIMITED EXAM: XR HAND LT LIMITED CLINICAL HISTORY: one view after attempted removal of FB. TECHNIQUE: 2D digital imaging was performed. COMPARISON: CR,XR XR HAND LT COMPLETE from 01/23/2021 FINDINGS: Single AP view of the left hand compared to earlier same date. The metallic foreign bodies in the left 2nd-index finger and thenar eminence are again noted, unchang ed. IMPRESSION: No change from previous today. DATA REPOSITORY: RADIATION DOSE DELIVERED:
[2021-01-23] MEDS: Amox. 875/Clav. 125, 2 TABS/BTL 1 TAB PO (22:44)
--- NOTE | 2021-01-23 22:53 | DI.VRAD_ITS ---
PROCEDURE INFORMATION: Exam: XR Left Hand Exam date and time: 01/23/2021 10:22 PM Age: 45 years old Clinical indication: Screening exam; One view after attempted removal of fb TECHNIQUE: Imaging protocol: XR Left hand. Views: 3 or more views. COMPARISON: CR XR HAND LT COMPLETE 01/23/2021 8:39 PM FINDINGS: Bones/joints: Index finger and thenar eminence soft tissue metallic foreign bodies are unchanged. Bones and joints are intact. Normal osseous mineralization. Soft tissues: Normal. IMPRESSION: Unchanged metallic soft tissue foreign bodies in left index finger and thenar eminence. Dictated and Authenticated by: Darren Muñoz MD. Ordering:IAN Ace MD
== END 2021-01-23 22:55 | disposition home or self-care (01) ==
PROVIDERS: Emergency Provider Physician Assistant; PCP Family Medicine
DX: S61.442A Puncture wound with foreign body of left hand, initial encounter (principal); X58.XXXA Exposure to other specified factors, initial encounter
CPT/HCPCS: 10120; 90471; 99283; 73120; 73130

== ENCOUNTER 2021-02-04 16:18 | Emergency (ER) | payer MEDICAID, SELFPAY ==
[2021-02-04 16:23] VITALS: BP 119/81; PULSE 85; RESP 20; TEMP 36.6; O2SAT 96
--- NOTE | 2021-02-04 16:47 | ED.GENADUL_ITS ---
Discharge Plan Disposition Patient Disposition: HOME Condition: Good Discharge Details Clinical Impression: Laceration of right thumb Primary Care Provider: Valencia Avina ED Provider: Alana Barker Home Meds and New Rx's Prescriptions: No Action pravastatin 40 mg tablet 40 mg PO DAILY Qty: 90 RF: 4 Eliquis 2.5 mg tablet 2.5 mg PO BID Qty: 60 RF: 0 meclizine 25 mg tablet 25 - 50 mg PO DAILY PRN (Reason: motion sickness) Qty: 30 RF: 2 rosuvastatin 20 mg tablet 20 mg PO DAILY Qty: 30 RF: 11 Hold Instructions: Home Medication placed on hold at Doctor's office dicyclomine 10 mg capsule 10 mg PO TID PRN (Reason: abdominal pain) Qty: 25 RF: 0 sertraline 100 mg tablet 125 mg PO DAILY RF: 0 divalproex [Depakote] 250 mg tablet,delayed release (DR/EC) 250 mg PO BID Qty: 60 RF: 3 tamsulosin 0.4 mg capsule 0.8 mg PO DAILY Qty: 180 RF: 4 omeprazole 20 mg capsule,delayed release(DR/EC) 20 mg PO DAILY Qty: 90 RF: 4 lidocaine [Aspercreme (lidocaine)] 4 % adhesive patch,medicated 1 patch TP DAILY PRN (Reason: pain) Qty: 1 RF: 0 acetaminophen [Tylenol] 325 mg Tablet 650 mg PO Q6H PRN PRNQty: 30 RF: 0 Discharge Instructions Instructions: Laceration (ED) Additional Instructions: Wound dry, if youuse it frequently, it will not remain adherent Please return with any redness, fever, worsening pain Use caution with the thumb, the more you use it more likely the glue is to open Medical Decision Making no Active bleeding Wound cleansed copiously Dermabond applied, patient tolerated without incident Coagulation achieved at time of discharge home Return precautions discussed patient expressed understanding Low clinical suspicion for fracture Differential Diagnosis Differential Diagnosis: Laceration, abrasion, contusion, fracture Medical Records Medical records reviewed: Yes I reviewed the patient's medical records. HPI General Mode of arrival: ambulatory . Date/Time Provider Initiated Documentation: 02/04/21 16:23 . Information obtained by: patient . HPI Narrative: Patient reports laceration to right thumb. Patient states that he was cutting fish when he accidentally cut his finger. This occurred a few hours prior to arrival. Denies any additional complaints at this time. Denies strength or sensation change. Is on Eliquis reportedly. Related Data Home Medications Medication Instructions Recorded Confirmed acetaminophen [Tylenol] 650 mg PO Q6H PRN PRN #30 tab 06/04/18 02/04/21 meclizine 25 mg tablet 25 - 50 mg PO DAILY PRN #30 tab-cap 08/02/19 02/04/21 lidocaine [Aspercreme (lidocaine)] 1 patch TP DAILY PRN #1 each 08/19/19 02/04/21 divalproex 250 mg tablet,delayed 250 mg PO BID #60 tab 03/31/20 02/04/21 release rosuvastatin 20 mg tablet 20 mg PO DAILY #30 tab 07/19/20 02/04/21 pravastatin 40 mg tablet 40 mg PO DAILY #90 tab 10/25/20 02/04/21 apixaban 2.5 mg tablet 2.5 mg PO BID #60 tab 10/27/20 02/04/21 dicyclomine 10 mg capsule 10 mg PO TID PRN #25 cap 11/15/20 02/04/21 omeprazole 20 mg capsule,delayed 20 mg PO DAILY #90 cap 12/07/20 02/04/21 release tamsulosin 0.4 mg capsule 0.8 mg PO DAILY #180 cap 12/07/20 02/04/21 sertraline 100 mg tablet 125 mg PO DAILY tab 01/30/21 02/04/21 Previous Rx's Medication Instructions Recorded acetaminophen [Tylenol] 650 mg PO Q6H PRN PRN #30 tab 06/04/18 meclizine 25 mg tablet 25 - 50 mg PO DAILY PRN #30 tab-cap 08/02/19 lidocaine [Aspercreme (lidocaine)] 1 patch TP DAILY PRN #1 each 08/19/19 divalproex 250 mg tablet,delayed 250 mg PO BID #60 tab 03/31/20 release rosuvastatin 20 mg tablet 20 mg PO DAILY #30 tab 07/19/20 pravastatin 40 mg tablet 40 mg PO DAILY #90 tab 10/25/20 apixaban 2.5 mg tablet 2.5 mg PO BID #60 tab 10/27/20 dicyclomine 10 mg capsule 10 mg PO TID PRN #25 cap 11/15/20 omeprazole 20 mg capsule,delayed 20 mg PO DAILY #90 cap 12/07/20 release tamsulosin 0.4 mg capsule 0.8 mg PO DAILY #180 cap 12/07/20 Allergies Allergy/AdvReac Type Severity Reaction Status Date / Time cephalexin Allergy Unverified 02/04/21 16:25 General Stated Complaint: Laceration DARI: 4 Review of Systems Narrative: Review of systems obtained x3 aside from where indicated in HPI [facility] Medical History (Updated 02/04/21 @ 17:15 by NAPOLEON Walls) BPH (benign prostatic hyperplasia) Depression Fatty liver GERD (gastroesophageal reflux disease) History of gastroscopy 01/2020 [facility] [place] / negative Hypercholesterolemia Hypercoagulable state [facility] [place] Hemato/Onco: DR.Mary Obregon/ thrombosis of left renal vein/ 2019 Tubular adenoma of colon 01/2020 [facility] [place]/ Surgical History (Updated 01/26/21 @ 07:56 by Valencia Avina MD) repair of incarcerated umbilical hernia (04/16/17) S/P cholecystectomy (~06/2018) S/P colonoscopy (02/17/20) tubular adenoma/ [facility] [place]/ Vasectomy Family History Father Diabetes Essential hypertension Mother Essential hypertension Hyperlipidemia Social History Smoking/Tobacco Use Status: Current every day Tobacco Type: cigarettes Smoking packs per day: 1 Smoking cigarettes per day: 20.0 Years smoked: 20 Smoking pack- years: 20.00 Tobacco: How many years used: 20 Smoking risk assessment performed?: Yes Alcohol Intake: current Alcohol Intake frequency: a few times a month Drug use: Never Substance use type: does not use Current gender identity: male Do you feel safe at home: Yes Do you feel safe in your relationship?: Yes Exam Const Orientation: alert and oriented x3 Extrem Other: Right fifth digit with laceration noted neurovascularly intact Course Vital Signs Vital signs: Vital Signs Temperature 36.6 C 02/04/21 16:23 Pulse 85 02/04/21 16:23 Respiratory Rate 20 02/04/21 16:23 Blood Pressure 119/81 02/04/21 16:23 Pulse Oximetry 96 02/04/21 16:23 Temperature 36.6 C 02/04/21 16:23 Temperature Source Skin 02/04/21 16:23 Pulse 85 02/04/21 16:23 Respiratory Rate 20 02/04/21 16:23 Respiratory Effort Non-Labored 02/04/21 16:27 Blood Pressure 119/81 02/04/21 16:23 Blood Pressure Position Sitting 02/04/21 16:23 Pulse Oximetry 96 02/04/21 16:23 Oxygen Delivery Method Room Air 02/04/21 16:23 Oxygen Flow Rate 0 02/04/21 16:23 Pain Level 0 02/04/21 16:23
== END 2021-02-04 21:50 | disposition home or self-care (01) ==
PROVIDERS: Emergency Provider Physician Assistant; PCP Family Medicine
DX: S61.011A Laceration without foreign body of right thumb without damage to nail, initial encounter (principal); W26.0XXA Contact with knife, initial encounter; Z79.01 Long term (current) use of anticoagulants
CPT/HCPCS: 12001

== ENCOUNTER 2021-05-16 11:53 | Emergency (ER) | payer MEDICAID, SELFPAY ==
--- NOTE | 2021-05-16 11:45 | RT.EKG_ITS ---
APPROVED REPORT Exam: Resting ECG Reason for Exam: dizzy Patient Location: E HR:67 bpm ECG Measurements Heart Rate 67 AXIS WA 188 P 35 QRSd 115 QRS 100 QT 389 T 52 QTc 411 Conclusion Sinus rhythm...normal P axis, V-rate 60- 99 Incomplete right bundle branch block...QRSd >112, terminal axis(90,270)
[2021-05-16 12:02] VITALS: BP 131/81; PULSE 73; RESP 20; TEMP 36.5; O2SAT 97
[2021-05-16 12:30] VITALS: BP 119/83; PULSE 65; PULSE 67; RESP 21; O2SAT 95
[2021-05-16 12:31] VITALS: PULSE 64; RESP 13; O2SAT 96
[2021-05-16] MEDS: Normal Saline 1,000 ML 1000 ML IV (12:40)
[2021-05-16 12:43] LABS: Abs Immature Grans 0.03 10^3/uL (0.0-0.06); Absolute Basophil Count 0.02 10^3/uL (0.0-0.2); Absolute Eosinophil Count 0.09 10^3/uL (0.0-0.7); Absolute Monocyte Count 0.56 10^3/uL (0.1-0.8); Absolute Neutrophil Count 7.03 10^3/uL (1.2-6.7); Basophils % 0.2; Eosinophils % 0.9; HGB 13.8 g/dL (13.5-17.5); Immature Grans % 0.3; Lymphocytes % 24.4; MCHC 33.7 % (32.0-36.0); MCV 95.1 fL (80-95); MPV 10.4 fL (8.0-11.0); Monocytes % 5.5; Neutrophils % 68.7; Nucleated RBC 0 %; Platelet Count 219 10^3/uL (130-400); RBC 4.31 10^6/uL (4.36-5.78); RDW 13.1 % (11.8-14.1); RDW-SD 46.2 fL; WBC 10.23 10^3/uL (4.4-10.8)
[2021-05-16] MEDS: Meclizine 25 MG TAB PO (12:45)
[2021-05-16 12:50] LABS: Magnesium 2.1 mg/dL (1.8-2.4)
[2021-05-16 12:55] LABS: ALT 26 U/L (16-63); AST 19 U/L (15-37); Albumin 3.8 g/dL (3.4-5.0); Alkaline Phosphatase 73 U/L (46-116); Anion Gap 6.2 mmol/L (3-11); BUN 12 mg/dL (7-18); Bilirubin, Total 0.4 mg/dL (0.2-1.0); CO2 27.8 mmol/L (21.0-32.0); CREATININE 0.9 mg/dL (0.70-1.30); Calcium 8.8 mg/dL (8.5-10.1); Chloride 105 mmol/L (98-107); Glucose 115 mg/dL (74-106); Potassium 3.7 mmol/L (3.5-5.1); Sodium 139 mmol/L (136-145); Total Protein 7.3 g/dL (6.4-8.2)
[2021-05-16 12:58] LABS: Troponin I < 0.05 ng/mL (<0.06)
[2021-05-16] MEDS: Omnipaque 350 MG/ML 100 ML BTL 85 ML IJ (13:14)
[2021-05-16 14:07] LABS: Bilirubin Negative (Negative); Blood Trace-intact (Negative); Clarity Clear (Clear); Glucose Negative (Negative); Ketones Negative (Negative); Leukocyte Esterase Negative (Negative); Nitrite Negative (Negative); Urobilinogen 0.2 EU/dL (Up TO 0.2)
[2021-05-16 14:18] LABS: Epithelial Cells Rare HPF (Negative); RBC 0-2 HPF (0-2); WBC 0-2 HPF (0-5)
[2021-05-16 14:19] LABS: Bacteria Negative HPF (Negative); C & S Indicated? No; Casts Negative LPF (Negative); Crystals Negative HPF (Negative); Mucus Negative (Negative)
--- NOTE | 2021-05-16 14:25 | DI.CT_ITS ---
Exam(s) CT BRAIN NECK CTA EXAM: CT BRAIN NECK CTA CLINICAL HISTORY: on eliquis, dizziness, vasculopath. TECHNIQUE: Imaging Protocol: Axial CT angiography was performed with multi-slice acquisition and mu lti-planar and/or 3D reconstructions. CONTRAST MATERIAL: Intravenous: Omnipaque 350 Contrast volume:structured data in ml COMPARISON: CT CT ABDOMEN W from 11/29/2020 FINDINGS: CT Head W/O and W: Ventricles and Extra axial spaces: Normal in size and morphology for the patient's age. Hemorrhage: None. Cerebral parenchyma: Normal. Midline shift: None. Brainstem/Cerebellum: Normal. Calvarium: Normal. Visualized Paranasal sinuses/Mastoids: Clear. Soft Tissues: Unremarkable. Enhancement: Unremarkable. CTA Neck W: Common Carotid: Right: No dissection, occlusion or significant stenosis. Left: No dissection, occlusion or significant stenosis. External Carotid: Right: No occlusion or significant stenosis. Left: No occlusion or significant stenosis. Internal Carotid: Right: No dissection, occlusion or significant stenosis. Left: No dissection, occlusion or significant stenosis. Vertebral Artery: Right: No dissection, occlusion or significant stenosis. Left: No dissection, occlusion or significant stenosis. Lung Apices: Normal. Bones: Normal. Soft Tissues: Normal. CTA Brain W: Internal Carotid Arteries: Petrous: Normal. Cavernous: Mild atherosclerosis in the left internal carotid artery. Cerebral: Normal. Anterior Cerebral Arteries: Right: No aneurysm, occlusion or significant stenosis. Left: No aneurysm, occlusion or significant stenosis. Middle Cerebral Arteries: Right: No aneurysm, occlusion or significant stenosis. Left: No aneurysm, occlusion or significant stenosis. Posterior cerebral Arteries: Right: No aneurysm, occlusion or significant stenosis. Left: No aneurysm, occlusion or significant stenosis. Vertebral Arteries: Right: No aneurysm, occlusion or significant stenosis. Left: No aneurysm, occlusion or significant stenosis. Basilar Artery: No aneurysm, occlusion or significant stenosis. IMPRESSION: 1. No large vessel occlusion or significant stenosis on the CT angiography of the head. 2. No acute intracranial process. 3. No occlusion or significant stenosis on the angiography of the neck. 4. Results of this exam have been verbally communicated with provider. RADIATION DOSE DELIVERED: 1,197.62mGy.cm Total DLP DATA REPOSITORY: All CT scans at this facility are submitted to the National Radiology Data Registry (NRDR) Dose Index Registry (DIR) with the [employer] (A[employer]). RADIATION OPTIMIZATION: All CT scans at this facility use at least one of these dose optimization te chniques: automated exposure control; mA and/or kV adjustment per patient size (includes targeted exa ms where dose is matched to clinical indication); or iterative reconstruction.
--- NOTE | 2021-05-16 15:11 | ED.GENADUL_ITS ---
Discharge Plan Disposition Patient Disposition: HOME Condition: Good Discharge Details Clinical Impression: Dizziness Primary Care Provider: Valencia Avina ED Provider: Alana Barker Home Meds and New Rx's Prescriptions: New meclizine 25 mg tablet 25 mg PO TID PRNQty: 14 RF: 0 Continued pravastatin 40 mg tablet 40 mg PO DAILY Qty: 90 RF: 4 Eliquis 2.5 mg tablet 2.5 mg PO BID Qty: 60 RF: 0 meclizine 25 mg tablet 25 - 50 mg PO DAILY PRN (Reason: motion sickness) Qty: 30 RF: 2 rosuvastatin 20 mg tablet 20 mg PO DAILY Qty: 30 RF: 11 Hold Instructions: Home Medication placed on hold at Doctor's office dicyclomine 10 mg capsule 10 mg PO TID PRN (Reason: abdominal pain) Qty: 25 RF: 0 sertraline 100 mg tablet 125 mg PO DAILY RF: 0 divalproex [Depakote] 250 mg tablet,delayed release (DR/EC) 250 mg PO BID Qty: 60 RF: 3 tamsulosin 0.4 mg capsule 0.8 mg PO DAILY Qty: 180 RF: 4 omeprazole 20 mg capsule,delayed release(DR/EC) 20 mg PO DAILY Qty: 90 RF: 4 lidocaine [Aspercreme (lidocaine)] 4 % adhesive patch,medicated 1 patch TP DAILY PRN (Reason: pain) Qty: 1 RF: 0 acetaminophen [Tylenol] 325 mg Tablet 650 mg PO Q6H PRN PRNQty: 30 RF: 0 Discharge Instructions Instructions: Dizziness (ED) Additional Instructions: Please follow-up with your primary care physician in 24 to 48 hours You may try taking meclizin if you have recurrent dizziness, if this does not with your symptoms, you should present to the emergency room for reevaluation Your tests today are reassuring Do not operate your vehicle if you are feeling lightheaded or dizzy Discharge Data Discharge Date/Time-TO BE ENTERED AT DEPARTURE: 05/16/21 15:28 Medical Decision Making Patient is alert, oriented, upset capacity, feels marked improvement after CTA head neck, no evidence of dissection or obvious CVA, my suspicion for posterior pathology is low, patient feeling improved after meclizine and prednisone, symptoms have been present for the past 3 days Ambulatory with steady gait, social determined there was no complaints We will follow up with primary care physician in the outpatient setting, discharged home in stable condition, symptomatically improved Blood pressure 131/81, stable vitals, no hypoxia, nonfocal neurological exam Medical Records Medical records reviewed: Yes I reviewed the patient's medical records. Lab Data Lab results reviewed: Yes I reviewed the patient's lab results. HPI General Mode of arrival: ambulatory . Date/Time Provider Initiated Documentation: 05/16/21 12:18 . Limitations to Documentation: no limitations . Information obtained by: patient . HPI Narrative: This 46-year-old gentleman with history of hypercholesterolemia, tubular adenoma of colon, renal artery stenosis on Eliquis presents with report of dizziness for the past several days. He is worse when he moves his head. He denies chest pain or shortness of breath. He denies any strength or sensation change. He denies any fever or chills. DENIES faith OR recent neck manipulations. Denies prior history of similar symptoms in the past. Denies any head injury. Denies drugs or sensation change. Denies any nausea or vomiting. Denies any upper respiratory symptoms. Related Data Home Medications Medication Instructions Recorded Confirmed acetaminophen [Tylenol] 650 mg PO Q6H PRN PRN #30 tab 06/04/18 02/04/21 meclizine 25 mg tablet 25 - 50 mg PO DAILY PRN #30 tab-cap 08/02/19 02/04/21 lidocaine [Aspercreme (lidocaine)] 1 patch TP DAILY PRN #1 each 08/19/19 02/04/21 divalproex 250 mg tablet,delayed 250 mg PO BID #60 tab 03/31/20 02/04/21 release rosuvastatin 20 mg tablet 20 mg PO DAILY #30 tab 07/19/20 02/04/21 pravastatin 40 mg tablet 40 mg PO DAILY #90 tab 10/25/20 02/04/21 apixaban 2.5 mg tablet 2.5 mg PO BID #60 tab 10/27/20 02/04/21 dicyclomine 10 mg capsule 10 mg PO TID PRN #25 cap 11/15/20 02/04/21 omeprazole 20 mg capsule,delayed 20 mg PO DAILY #90 cap 12/07/20 02/04/21 release tamsulosin 0.4 mg capsule 0.8 mg PO DAILY #180 cap 12/07/20 02/04/21 sertraline 100 mg tablet 125 mg PO DAILY tab 01/30/21 02/04/21 meclizine 25 mg PO TID PRN #14 tab 05/16/21 Previous Rx's Medication Instructions Recorded acetaminophen [Tylenol] 650 mg PO Q6H PRN PRN #30 tab 06/04/18 meclizine 25 mg tablet 25 - 50 mg PO DAILY PRN #30 tab-cap 08/02/19 lidocaine [Aspercreme (lidocaine)] 1 patch TP DAILY PRN #1 each 08/19/19 divalproex 250 mg tablet,delayed 250 mg PO BID #60 tab 03/31/20 release rosuvastatin 20 mg tablet 20 mg PO DAILY #30 tab 07/19/20 pravastatin 40 mg tablet 40 mg PO DAILY #90 tab 10/25/20 apixaban 2.5 mg tablet 2.5 mg PO BID #60 tab 10/27/20 dicyclomine 10 mg capsule 10 mg PO TID PRN #25 cap 11/15/20 omeprazole 20 mg capsule,delayed 20 mg PO DAILY #90 cap 12/07/20 release tamsulosin 0.4 mg capsule 0.8 mg PO DAILY #180 cap 12/07/20 meclizine 25 mg PO TID PRN #14 tab 05/16/21 Allergies Allergy/AdvReac Type Severity Reaction Status Date / Time cephalexin Allergy Unverified 02/04/21 16:25 General Stated Complaint: Dizzy/Sync DARI: 3 Review of Systems All systems reviewed & are unremarkable except as noted in HPI and below [facility] Medical History (Updated 05/16/21 @ 15:16 by NAPOLEON Walls) BPH (benign prostatic hyperplasia) Depression Fatty liver GERD (gastroesophageal reflux disease) History of gastroscopy 01/2020 [facility] / negative Hypercholesterolemia Hypercoagulable state [facility] [place] Hemato/Onco: DR.Mary Obregon/ thrombosis of left renal vein/ 2019 Tubular adenoma of colon 01/2020 [facility] [place]/ Surgical History (Updated 01/26/21 @ 07:56 by Valencia Avina MD) repair of incarcerated umbilical hernia (04/16/17) S/P cholecystectomy (~06/2018) S/P colonoscopy (02/17/20) tubular adenoma/ [facility] [place]/ Vasectomy Family History Father Diabetes Essential hypertension Mother Essential hypertension Hyperlipidemia Social History Smoking/Tobacco Use Status: Current every day Tobacco Type: cigarettes Smoking packs per day: 1 Smoking cigarettes per day: 20.0 Years smoked: 20 Smoking pack- years: 20.00 Tobacco: How many years used: 20 Smoking risk assessment performed?: Yes Alcohol Intake: current Alcohol Intake frequency: a few times a month Drug use: Never Substance use type: marijuana Current gender identity: male Do you feel safe at home: Yes Do you feel safe in your relationship?: Yes Exam Const General: cooperative and no acute distress Eyes Pupils: PERRL EOM: EOM intact bilaterally Neck Other: No carotid bruit Chest Chest: normal inspection of the chest Resp Effort & Inspection: normal respiratory effort Cardio Rate: regular rate Rhythm: regular rhythm GI Inspection: normal to inspection Auscultation: normal bowel sounds Skin General skin exam: no rashes or lesions noted Neuro General: patient alert and patient oriented x3 Cranial Nerves: CN's II-XI intact bilaterally and tongue midline Cognition: normal cognition Gait: normal gait Other: Negative [id number], negative heel abraham, negative pronator drift, ambulatory with steady gait, no ataxia, strength and sensation intact distally Extrem General: normal to inspection Psych Appearance: grossly normal Course Vital Signs Vital signs: Vital Signs Temperature 36.5 C 05/16/21 12:02 Pulse 73 05/16/21 12:02 Respiratory Rate 20 05/16/21 12:02 Blood Pressure 131/81 05/16/21 12:02 Pulse Oximetry 97 05/16/21 12:02 Temperature 36.5 C 05/16/21 12:02 Temperature Source Skin 05/16/21 12:02 Pulse 65 05/16/21 12:30 Pulse 64 05/16/21 12:31 Respiratory Rate 13 05/16/21 12:31 Respiratory Effort 05/16/21 12:07 Blood Pressure 119/83 05/16/21 12:30 Blood Pressure Mean 90 05/16/21 12:30 Blood Pressure Position Supine 05/16/21 12:02 Pulse Oximetry 96 05/16/21 12:31 Oxygen Delivery Method Room Air 05/16/21 12:02 Oxygen Flow Rate 0 05/16/21 12:02 Pain Level 0 05/16/21 12:02 Lab/Test Results Lab/Test Results: Laboratory Tests Range/Units 05/16/21 05/16/21 05/16/21 12:20 12:20 12:20 WBC (4.4-10.8) 10^3/uL 10.23 RBC (4.36-5.78) 10^6/uL 4.31 L Hgb (13.5-17.5) g/dL 13.8 Hct (40.0-50.0) % 41.0 MCV (80-95) fL 95.1 H MCH (27.0-33.0) pg 32.0 MCHC (32.0-36.0) % 33.7 RDW (11.8-14.1) % 13.1 Plt Count (130-400) 10^3/uL 219 MPV (8.0-11.0) fL 10.4 Immature Gran % 0.3 Neutrophils % 68.7 Lymphocytes % 24.4 Monocytes % 5.5 Eosinophils % 0.9 Basophils % 0.2 Nucleated RBC % % 0 Absolute Neutrophils (1.2-6.7) 10^3/uL 7.03 H Absolute Lymphocytes (1.2-3.4) 10^3/uL 2.50 Absolute Monocytes (0.1-0.8) 10^3/uL 0.56 Absolute Eosinophils (0.0-0.7) 10^3/uL 0.09 Absolute Basophils (0.0-0.2) 10^3/uL 0.02 Sodium (136-145) mmol/L 139 Potassium (3.5-5.1) mmol/L 3.7 Chloride (98-107) mmol/L 105 Carbon Dioxide (21.0-32.0) mmol/L 27.8 Anion Gap (3-11) mmol/L 6.2 BUN (7-18) mg/dL 12 Creatinine (0.70-1.30) mg/dL 0.9 Estimated GFR/1.73 m2 (mL/min/1.73m2) >= 60.00 Glucose (74-106) mg/dL 115 H Calcium (8.5-10.1) mg/dL 8.8 Magnesium (1.8-2.4) mg/dL 2.1 Total Bilirubin (0.2-1.0) mg/dL 0.4 AST (15-37) U/L 19 ALT (16-63) U/L 26 Alkaline Phosphatase (46-116) U/L 73 Troponin I (<0.06) ng/mL Total Protein (6.4-8.2) g/dL 7.3 Albumin (3.4-5.0) g/dL 3.8 Urine Color (Yellow) Urine Clarity (Clear) Urine pH (5-8) Ur Specific [place] (1.005-1.025) Urine Protein (Negative) mg/dL Urine Ketones (Negative) mg/dL Urine Blood (Negative) Urine Nitrite (Negative) Urine Bilirubin (Negative) Urine Urobilinogen (Up TO 0.2) EU/dL Ur Leukocyte Esterase (Negative) Urine RBC (0-2) HPF Urine WBC (0-5) HPF Ur Epithelial Cells (Negative) HPF Urine Crystals (Negative) HPF Urine Bacteria (Negative) HPF Urine Casts (Negative) LPF Urine Mucus (Negative) Ur Culture Indicated? Urine Glucose (Negative) mg/dL Range/Units 05/16/21 05/16/21 12:20 13:55 WBC (4.4-10.8) 10^3/uL RBC (4.36-5.78) 10^6/uL Hgb (13.5-17.5) g/dL Hct (40.0-50.0) % MCV (80-95) fL MCH (27.0-33.0) pg MCHC (32.0-36.0) % RDW (11.8-14.1) % Plt Count (130-400) 10^3/uL MPV (8.0-11.0) fL Immature Gran % Neutrophils % Lymphocytes % Monocytes % Eosinophils % Basophils % Nucleated RBC % % Absolute Neutrophils (1.2-6.7) 10^3/uL Absolute Lymphocytes (1.2-3.4) 10^3/uL Absolute Monocytes (0.1-0.8) 10^3/uL Absolute Eosinophils (0.0-0.7) 10^3/uL Absolute Basophils (0.0-0.2) 10^3/uL Sodium (136-145) mmol/L Potassium (3.5-5.1) mmol/L Chloride (98-107) mmol/L Carbon Dioxide (21.0-32.0) mmol/L Anion Gap (3-11) mmol/L BUN (7-18) mg/dL Creatinine (0.70-1.30) mg/dL Estimated GFR/1.73 m2 (mL/min/1.73m2) Glucose (74-106) mg/dL Calcium (8.5-10.1) mg/dL Magnesium (1.8-2.4) mg/dL Total Bilirubin (0.2-1.0) mg/dL AST (15-37) U/L ALT (16-63) U/L Alkaline Phosphatase (46-116) U/L Troponin I (<0.06) ng/mL < 0.05 Total Protein (6.4-8.2) g/dL Albumin (3.4-5.0) g/dL Urine Color (Yellow) Yellow Urine Clarity (Clear) Clear Urine pH (5-8) 6.0 Ur Specific [place] (1.005-1.025) 1.010 Urine Protein (Negative) mg/dL Negative Urine Ketones (Negative) mg/dL Negative Urine Blood (Negative) Trace-intact H Urine Nitrite (Negative) Negative Urine Bilirubin (Negative) Negative Urine Urobilinogen (Up TO 0.2) EU/dL 0.2 Ur Leukocyte Esterase (Negative) Negative Urine RBC (0-2) HPF 0-2 Urine WBC (0-5) HPF 0-2 Ur Epithelial Cells (Negative) HPF Rare Urine Crystals (Negative) HPF Negative Urine Bacteria (Negative) HPF Negative Urine Casts (Negative) LPF Negative Urine Mucus (Negative) Negative Ur Culture Indicated? No Urine Glucose (Negative) mg/dL Negative
[2021-05-16 15:23] VITALS: BP 130/90; PULSE 51; TEMP 36.3; O2SAT 98
== END 2021-05-16 15:28 | disposition home or self-care (01) ==
PROVIDERS: Emergency Provider Physician Assistant; PCP Family Medicine
DX: R42 Dizziness and giddiness (principal)
CPT/HCPCS: 36415; 70496; 70498; 80053; 93005; 96360; 99285; 81003; 81015; 83735; 84484; 85025; 93010; J3490

== ENCOUNTER 2023-03-23 16:19 | Emergency (ER) | payer MEDICAID, SELFPAY ==
[2023-03-23 16:28] VITALS: BP 131/80; PULSE 75; RESP 20; TEMP 36.8; O2SAT 97
--- OUTSIDE RECORDS SUMMARY | 2023-03-23 16:35 | XMS_ITS | Patient Health Record ---
Author Name Unknown [facility] Address [address] [place] [address] Care Team Providers Care Content Producer Name Role Phone DARIAN GATES MD Primary Care Provider Garrett Perez Unavailable [phone] REASON FOR REFERRAL No Information MEDICATIONS Medication SIG (Take, Route, Frequency, Duration) Notes Start Date End Date Status PANTOPRAZOLE 20 mg 1 tab(s) orally once a day STOP*please review for potential _update for e-prescription and drug interaction check* Active ACETAMINOPHEN 500 mg 2 tab(s) orally every 6 hours STOP*please review for potential _update for e-prescription and drug interaction check* Active Ibuprofen 600 mg 1 tab(s) orally every 6 hours Active Pravastatin Sodium 20 mg 1 tab(s) orally once a day Active VOLTAREN TOPICAL 1% Pea sized amount applied topically up to 4 times a day for 30 day(s) STOP*please review for potential _update for e-prescription and drug interaction check* Active CITALOPRAM 40 mg 1 tab(s) orally once a day STOP*please review for potential _update for e-prescription and drug interaction check* Not-Taking VOLTAREN TOPICAL 1% 2 g applied topically 4 times a day for 30 day(s) STOP*please review for potential _update for e-prescription and drug interaction check* 07/15/2017 Active -OTC, HERBALS Varies Per patient STOP*please review for potential _update for e-prescription and drug interaction check* Motion sickness med when riding as a passenger Active -DME: ORTHOTIC as directed STOP*please review for potential _update for e-prescription and drug interaction check* 09/11/2017 Active SOCIAL HISTORY Tobacco Use: Social History Observation Description Date Details (start date - stop date) Former Smoker NA - NA Sex Assigned At : Social History Observation Description Sex Assigned At Unknown SMOKING Question Answer Notes Are you a: former smoker How long has it been since you last smoked? 1-5 years PROBLEMS Problem Type ICD Code Onset Dates Problem Status W/U Status Risk SNOMED Code Notes Problem Plantar fasciitis of right foot (M72.2) Active confirmed 26298740134428038 Problem Plantar fasciitis of left foot (M72.2) Active confirmed 31119452155721651 Problem Pain in right foot (M79.671) Active confirmed 90384249792093095 Problem Pain of left foot (M79.672) Active confirmed [id number] PLAN OF TREATMENT No Information Insurance Providers Payer Name Payer Address Payer Phone Subscriber Number Group Number Insured Name Patient Relationship to Insured Coverage Start Date Coverage End Date [place] [employer] [place], [place] [id number] DORA CARBALLO Self - patient is the insured SELF PAY [place] [address] [place] [address] DORA CARBALLO Self - patient is the insured MEDICAL (GENERAL) HISTORY Medical History History ICD Code Nausea Depression Hyperlipidemia Attention Deficit Hyperactivity disorder , predominantly inattentive type Gasrroesophageal reflux disease, Esophag itis presence Dysuria Plantar Fasciitis, Bilateral Surgical History Surgery Date(Month/Year) Vasectomy Repair of incarcerated umbilical hernia
== END 2023-03-23 20:03 | disposition left against medical advice (07) ==
PROVIDERS: Emergency Provider Student in an Organized Health Care Education/Training Program; PCP Family Medicine
DX: Z53.21 Procedure and treatment not carried out due to patient leaving prior to being seen by health care provider (principal)

== ENCOUNTER 2023-09-06 12:45 | Emergency (ER) | payer MEDICAID, SELFPAY ==
--- NOTE | 2023-09-06 12:50 | W.ED.GENAD ---
HPI General DARI: 4 Date/Time Provider Initiated Documentation: 09/06/23 12:50. Limitations to Documentation: no limitations. Information obtained by: patient and family. HPI Narrative: The patient is a healthy 48-year-old male with a history of umbilical hernia repair who presents with 2 days of low back pain which began while using a chainsaw to cut some wood. The pain began radiating to the left testicle several hours later. His back pain was located in the lower lumbar region and was bilateral. It does not radiate down his legs. He does have subjective feeling of testicular swelling but it does not appear swollen on his visual inspection. He denies any unprotected intercourse with any new partners. He is and only has 1 partner. He denies any rashes. He has had a cholecystectomy. He denies any dysuria or hematuria. He has no history of kidney stones. He denies any saddle anesthesia, numbness tingling or weakness in his legs. No urinary or fecal incontinence or retention. No numbness tingling or weakness. He states his pain is 7-8 out of 10 in severity. No fevers or chills. No rashes. No abdominal pain. He does have a history of umbilical hernia repair. He denies any penile discharge or rashes. No dysuria. He has taken an remittent acetaminophen and an occasional ibuprofen as needed for his pain. He denies any previous similar episodes History of Present Illness 7 other (Acetaminophen) Related Data Home Medications Medication Instructions Recorded Confirmed acetaminophen 325 mg tablet 650 mg (2 x 325 mg) PO Q6H PRN PRN 06/04/18 09/06/23 (Tylenol) #30 tabs tamsulosin 0.4 mg capsule 0.8 mg (2 x 0.4 mg) PO DAILY #180 12/25/21 09/06/23 caps rosuvastatin 20 mg tablet 20 mg PO DAILY #30 tabs 06/19/22 09/06/23 omeprazole 20 mg capsule,delayed 20 mg PO DAILY #90 caps 12/12/22 09/06/23 release apixaban 2.5 mg tablet (Eliquis) 2.5 mg PO BID #60 tabs 02/07/23 09/06/23 divalproex 250 mg tablet,delayed 250 mg PO DAILY #90 tabs 06/04/23 09/06/23 release (Depakote) Previous Rx's Medication Instructions Recorded acetaminophen 325 mg tablet 650 mg (2 x 325 mg) PO Q6H PRN PRN 06/04/18 (Tylenol) #30 tabs tamsulosin 0.4 mg capsule 0.8 mg (2 x 0.4 mg) PO DAILY #180 12/25/21 caps rosuvastatin 20 mg tablet 20 mg PO DAILY #30 tabs 06/19/22 omeprazole 20 mg capsule,delayed 20 mg PO DAILY #90 caps 12/12/22 release apixaban 2.5 mg tablet (Eliquis) 2.5 mg PO BID #60 tabs 02/07/23 divalproex 250 mg tablet,delayed 250 mg PO DAILY #90 tabs 06/04/23 release (Depakote) Allergies Allergy/AdvReac Type Severity Reaction Status Date / Time cephalexin Allergy Unverified 09/06/23 12:52 Review of Systems Narrative: see hpi Gastrointestinal Comments: After I discussed the findings of terminal ileitis with the patient he said that he has had chronic diarrhea as an adult usually relieved by [id number] antidiarrheals. There is no family history of Crohn's disease. Genitourinary Comments: After my initial evaluation the patient told me that he was placed on Eliquis after he had a blood clot around the veins of his left kidney. PFSH All Active Problems Kidney stone on right side (Acute) Bilateral varicoceles (Acute) Terminal ileitis (Acute) Attention deficit hyperactivity disorder, predominantly inattentive type (Acute) Depression (Acute 10/06/13) 1st rx: Citalopram ad 40mg/ 2011-09/2013 sertraline 09/2013. Did not tolerate sertraline, he stopped himself. 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) wears hearing aids Hypercoagulable state (Acute) [facility] [place] Hemato/Onco: DR.Mary Obregon/ thrombosis of left renal vein/ 2019 Severe obstructive sleep apnea (Chronic) uses CPAP Tobacco dependence due to cigarettes (Acute) Medical History Hx of fracture of ankle History of drug abuse cocaine Dizziness managed with prn meclizine History of gastroscopy 01/2020 [facility] [place] / negative Tubular adenoma of colon 01/2020 [facility] [place]/ Thrombosis of left renal vein (2019) anticoagulation per [facility] [place] GERD (gastroesophageal reflux disease) Fatty liver Surgical History History of umbilical hernia repair (~2016) Status post vasectomy S/P colonoscopy (02/17/20) tubular adenoma/ [facility] [place]/ S/P cholecystectomy (~06/2018) Family History Father Diabetes Essential hypertension Mother Essential hypertension Hyperlipidemia Social History Smoking/Tobacco Use Status: Current every day Tobacco Type: cigarettes Smoking packs per day: 1 Smoking cigarettes per day: 20.0 Years smoked: 24 Smoking pack-years: 24.00 Tobacco: How many years used: 24 Quit status: has quit before Second Hand Exposure: Yes Counseling given: provider counseling Smoking risk assessment performed?: Yes Alcohol Intake: current Alcohol Intake frequency: holidays/special occasions only Alcohol type: beer and hard liquor Drug use: Daily Substance use type: marijuana Details: intermittent use. Household members: none Housing: other Details[place], uses a generator Number of Children: 3 Communication Needs: Cannot Read Education Level: high school Details: learning disability Do you need help understanding health information?: Often current occupation: on disability due to ADHD Current gender identity: male Do you feel safe at home: Yes Do you feel safe in your relationship?: Yes Exam Narrative Exam Narrative: The patient is a well-developed well-nourished nontoxic well-hydrated male who does not appear in acute distress. He is mildly hypertensive. He is borderline tachycardic with a heart rate of 100. He is not tachypneic or febrile. His room air O2 sat is normal at 99%. His GCS is 15. Const General: cooperative, healthy appearing and comfortable Nutritional Appearance: average body habitus and well nourished Orientation: alert, awake and oriented x3 HENMT Head: normal to inspection, normocephalic and atraumatic Ears: hearing grossly normal bilaterally and external ears normal General nose exam: external nose normal, nares normal and no nasal discharge Face and sinus: normal facial exam, sinuses nontender and face symmetric Mouth: oral mucosae normal, lip normal, tongue normal, oropharynx normal, moist mucous membranes and other (Normal phonation. The patient is handling secretions.) Throat: posterior oropharynx normal and uvula midline Eyes General: appearance normal, both eyes and all related structures Eyelids: eyelids normal Conjunctivae: conjunctivae normal Sclera: sclerae normal Cornea: corneas normal Pupils: PERRL EOM: EOM intact bilaterally and No nystagmus Neck Neck: normal visual inspection, full ROM, no lymphadenopathy, no meningeal signs, trachea midline and supple Lymphatic: no lymphadenopathy noted Chest Chest: normal inspection of the chest Resp Effort & Inspection: normal respiratory effort, able to speak in complete sentences, no audible wheezes, no nasal flaring, no respiratory distress, no retractions, no stridor, not tachypneic, no tracheal deviation, no use of accessory muscles, No prolonged expiratory phase and other (Normal inspiratory to expiratory ratio.) Auscultation: clear to auscultation bilaterally, no rales, no rhonchi, no wheezes and no rubs Tactile Fremitus: tactile fremitus absent Cardio Jugular venous pressure: no JVD Palpation: normal PMI Rate: regular rate Rhythm: regular rhythm Heart Sounds: S1 normal, S2 normal, no gallops, no murmurs and no rubs GI Inspection: normal to inspection, non-distended and scar (Well-healed supraumbilical surgical scar) Palpation: soft, no hepatosplenomegaly, no guarding and nontender Percussion: normal to percussion Auscultation: normal bowel sounds General: No CVA tenderness Male General Exam: Yes normal external exam, No ecchymosis, No inguinal lymphadenopathy, No lesions and No perineal induration Penis: normal penis, no condylomata, no ecchymosis, not edematous, not erythematous and no pustules Meatus: meatus normal Testes: epididymal tenderness (See below) Other: There is no discoloration of the scrotum. There is mild epididymal tenderness and slight swelling of the posterior aspect of the left testicle. The patient was examined and both lying and standing. He has normal bilateral cremasteric reflexes. There is a questionable small left inguinal hernia. Sensation is intact throughout the perineum. Back/Spine/Pelvis Back: no CVA tenderness and No back tenderness Cervical Spine: normal cervical lordosis, cervical ROM normal, No cervical muscular tenderness, No pain with cervical ROM, No cervical spinal tenderness and No step off deformity Thoracic/Lumbar Spine: thoracic and lumbar spine normal to inspection, No thoracic spinal tenderness and No lumbar spinal tenderness Pelvis: no pain with anterior-posterior compression and no pain with lateral compression Skin General skin exam: no rashes or lesions noted, turgor normal, no petechiae, no purpura and other (Skin is normal for ethnicity.) Lesions: no lesions Rashes: no rashes Trauma: no lacerations or abrasions Neuro General: patient alert, patient awake, patient oriented x3, moves all extremities, no meningeal signs, no focal motor deficits and CN's II-XI intact bilaterally Cranial Nerves: CN's II-XI intact bilaterally, PERRL, accommodation normal, EOM intact bilaterally, no nystagmus, facial strength normal, tongue midline, hearing normal and no nystagmus Cognition: normal cognition Speech: speech normal Gait: normal gait Motor: muscle tone normal throughout and strength 5/5 throughout Sensory Exam: no sensory deficits noted Pupils: Normal pupillary reactivity/response: bilateral Extrem General: normal to inspection, full ROM, capillary refill normal, no clubbing, cyanosis or edema and no calf tenderness Psych Appearance: grossly normal Affect: normal affect Attitude: cooperative Thought Process: normal Thought Content: normal Insight: insight good Judgment: judgment good Other: The patient appears to have capacity make medical decisions. Course I have discussed the patient's findings with him including the terminal ileitis and possibility of Crohn's disease as well as the bilateral varicoceles. I have advised him that he will be contacted by the general surgery office as well as the urologist office. I have advised him to elevate his scrotum on a towel and to alternate acetaminophen with ibuprofen as needed for pain and to return to the emergency department for any new or worrisome symptoms. He is aware that test for gonorrhea and chlamydia is pending. The patient voiced understanding agree with the discharge plan. All his questions and concerns were addressed prior to discharge Lab/Test Results Lab/Test Results: Leukocytosis, normal H&H, slight left shift, urinalysis negative for nitrite and leukocyte Estrace. 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 The patient appears to have a small left inguinal hernia and slight epididymal tenderness. He does not have evidence of a small bowel obstruction and does not have any evidence of an STI. Ultrasound is not available since is the weekend but my plan will be to obtain a CT scan of the abdomen and pelvis including the scrotum to look for inflammation pathology or incarcerated hernia. We will check lab work including a CBC for leukocytosis and a urinalysis to check for infection and STI. He does not have any evidence of cauda equina syndrome and has no numbness tingling or weakness in his legs or bowel or bladder incontinence or retention nor any saddle anesthesia. The patient certainly could have a kidney stone with pain radiating to the testes. We will establish an IV and also check his renal function and electrolytes. I will order IV acetaminophen for pain and a noncontrast CT to rule out renal colic. Differential Diagnosis Differential Diagnosis: Renal colic, left inguinal hernia, STI, UTI, Medical Records Medical records reviewed: Yes I reviewed the patient's medical records. Imaging Data Radiologic Study: Imaging: CT Scan (CT abdomen pelvis without contrast) Radiologist's impression: vRad impression: 1. Surgical changes of cholecystectomy with no complications. 2. Similar hypodense liver lesion in segment 6 of the liver. 3. Similar mild proximal left periureteric fat stranding with no obstructing urinary stone. 4. There is a 1 mm nonobstructing stone in the interpolar region of the right kidney. 5. Limited assessment of the veins without contrast however similar appearance of collateral left post perinephric strains and slitlike left renal vein. 6. Mild inflammatory changes around the terminal ileum suggestive of terminal ileitis cannot be infectious versus inflammatory in nature. No collections. 7. Bilateral varicoceles, more on the left. Lab Data Lab results reviewed: Yes I reviewed the patient's lab results. Labs: Leukocytosis, with slight left shift, mild hyperglycemia trace urine ketones small urine bilirubin, negative leukocyte Estrace, negative nitrate, chlamydia and GC are pending Quality:[facility] Health Related Social Needs: No Data to Display Discharge Plan Disposition Patient Disposition: Home Discharge Details Clinical Impression: Terminal ileitis, Bilateral varicoceles, Kidney stone on right side Primary Care Provider: Nemo Hines ED Provider: Aida Ndiaye Home Meds and New Rx's Prescriptions: No Action rosuvastatin 20 mg tablet 20 mg PO DAILY Qty: 30 11RF Hold Instructions: Home Medication placed on hold at Doctor's office omeprazole 20 mg capsule,delayed release(DR/EC) 20 mg PO DAILY Qty: 90 4RF Rx Instructions: take one capsule daily tamsulosin 0.4 mg capsule 0.8 mg PO DAILY Qty: 180 4RF Hold Instructions: Pt Stopped/Never Started Rx Instructions: take 2 capsules daily Eliquis 2.5 mg tablet 2.5 mg PO BID Qty: 60 12RF divalproex [Depakote] 250 mg tablet,delayed release (DR/EC) 250 mg PO DAILY Qty: 90 3RF acetaminophen [Tylenol] 325 mg Tablet 650 mg PO Q6H PRN PRNQty: 30 0RF Discharge Instructions Instructions: Crohn Disease (ED), Varicocele (ED), Testicle Pain (ED) Additional Instructions: 1. You will be contacted by the urologist's office for follow-up appointment. Tell them to check the results of the gonorrhea and chlamydia and tell them about the thrombosed perinephric vein treated with Eliquis and the finding of bilateral varicoceles. Alternate falls milligrams of acetaminophen every 3 hours with 400 to 600 mg of ibuprofen as needed for pain. You may also elevate your testicles on a towel to help with the pain. 2. Call your primary care provider and notify her of today's visit. She may also be able to access the results of the gonorrhea and Chlamydia tests that we did today. 3. Return here for any new or worrisome symptoms. Discharge Data Discharge Date/Time-TO BE ENTERED AT DEPARTURE: 09/06/23 15:59 Discharge Physician: Aida Ndiaye
[2023-09-06 12:54] VITALS: BP 133/98; PULSE 100; RESP 20; TEMP 37.2; O2SAT 99
--- NOTE | 2023-09-06 13:30 | DI.CT_ITS ---
Exam(s) CT ABDOMEN PELVIS WO EXAM: CT ABDOMEN PELVIS WO CLINICAL HISTORY: lower back pain and left testicular pain.. TECHNIQUE: Imaging Protocol: Axial computed tomography images with coronal and sagittal reformatted images were created and reviewed. COMPARISON: CT ABD PELVIS WITH CONTRAST from 04/02/[address] renal colic wo from 11/04/[address] ABDOMEN PELVIS W from 12/16/[address] ABDOMEN W from 11/29/[address] BRAIN NECK CTA from 05/16/2021 FINDINGS: ABDOMEN: Lung Bases: Normal where visualized. Liver: Normal density. The area of decreased attenuation seen in the inferior aspect of the liver phil r the gallbladder fossa is stable. No suspicious hepatic lesion is seen. There is again seen an enl arged left lobe of the liver. Gallbladder and biliary tract: Status post cholecystectomy. No significant biliary ductal dilatation . Pancreas: Normal density, no abnormal calcifications or inflammatory process. Spleen: Normal. Kidneys: Normal size, contour and axis.There is a 2 mm stone in the midpole of the right kidney. (Se basurto 8, image 263). There is stranding seen around the left renal pelvis and ureter which may reflec t inflammation. No radiodense stone is seen. There is stable bilateral renal cysts. There is mild stranding in the left perinephric space. No focal fluid collection is seen to suggest an abscess. Adrenal glands: No mass is seen. Lymph nodes: Within normal limits. Abdominal Aorta: No evidence of an abdominal aortic aneurysm. Mild atherosclerosis. There again see n multiple collateral vessels/varices in the left upper quadrant. PELVIS: Bladder:Urinary bladder is incompletely distended limiting evaluation. Bowel: There is stool seen throughout the colon suggesting constipation. There is no evidence of jesús endicitis. There is mild thickening of the wall of the terminal ileum with mild adjacent soft tissue stranding. There is no evidence of bowel obstruction. Peritoneal cavity: There is a small amount of fluid in the pelvis. No focal fluid collection is seen to suggest an abscess. No free air. Reproductive organs: There are enlarged vessel seen in the left scrotal sac and inguinal canal. Ther e is a fat containing left inguinal hernia. Bones: Within normal limits for the patient's age. Soft Tissues: Within normal limits. IMPRESSION: 1. Stranding in the left perinephric region and a round the left ureter without evidence of a radiode nse stone. Infection should be considered. 2. Right nephrolithiasis without obstructive uropathy. 3. Mild wall thickening and adjacent stranding in the terminal ileum suggestive of terminal ileitis. 4. Stable left upper quadrant varices and left varicocele. 5. Stable hypodensity in the liver. RADIATION DOSE DELIVERED: 1,004.61mGy.cm Total DLP DATA REPOSITORY: All CT scans at this facility are submitted to the National Radiology Data Registry (NRDR) Dose Index Registry (DIR) with the [employer] (ACR). RADIATION OPTIMIZATION: All CT scans at this facility use at least one of these dose optimization te chniques: automated exposure control; mA and/or kV adjustment per patient size (includes targeted exa ms where dose is matched to clinical indication); or iterative reconstruction.
[2023-09-06] MEDS: Normal Saline 1,000 ML 1000 ML IV (13:50)
[2023-09-06] MEDS: ACETAMINOPHEN 1,000 MG/100 ML BTL 400 MG IVPB (13:50)
[2023-09-06 14:01] LABS: Abs Immature Grans 0.06 10^3/uL (0.0-0.06); Absolute Basophil Count 0.02 10^3/uL (0.0-0.2); Absolute Eosinophil Count 0.05 10^3/uL (0.0-0.7); Absolute Lymphocyte Count 2.43 10^3/uL (1.2-3.4); Absolute Monocyte Count 1.16 10^3/uL (0.1-0.8); Basophils % 0.1; Eosinophils % 0.3; HCT 47.9 % (40.0-50.0); HGB 16.7 g/dL (13.5-17.5); Immature Grans % 0.4; Lymphocytes % 14.7; MCH 32.6 pg (27.0-33.0); MCHC 34.9 % (32.0-36.0); MCV 93 fL (80-95); MPV 9.7 fL (8.0-11.0); Neutrophils % 77.5; Platelet Count 227 10^3/uL (130-400); RBC 5.13 10^6/uL (4.36-5.78); RDW 12.4 % (11.8-14.1); RDW-SD 43.3 fL; WBC 16.51 10^3/uL (4.4-10.8)
[2023-09-06 14:09] LABS: BUN 13 mg/dL (7-18); CREATININE 0.9 mg/dL (0.70-1.30); Calcium 9.6 mg/dL (8.5-10.1); Chloride 100 mmol/L (98-107); Estimated GFR 106.01 (mL/min/1.73m2); Glucose 107 mg/dL (74-106); Potassium 4.1 mmol/L (3.5-5.1); Sodium 136 mmol/L (136-145)
[2023-09-06 14:26] LABS: Bilirubin Small (Negative); Blood Negative (Negative); Clarity Clear (Clear); Glucose Negative (Negative); Ketones Trace mg/dL (Negative); Leukocyte Esterase Negative (Negative); Nitrite Negative (Negative); Specific Gravity >= 1.030 (1.005-1.025); Urobilinogen 0.2 mg/dL (Up to 0.2); pH 5.5 (5-8)
--- NOTE | 2023-09-06 15:15 | DI.VRAD_ITS ---
PROCEDURE INFORMATION: Exam: CT Abdomen And Pelvis Without Contrast Exam date and time: 09/06/2023 2:17 PM Age: 48 years old Clinical indication: Other: Lower back pain and left testicular pain. Prior surgery; Surgery date: 6+ months; Surgery type: Cholcysectomy TECHNIQUE: Imaging protocol: Computed tomography of the abdomen and pelvis without contrast. COMPARISON: CT ABDOMEN W 11/29/2020 10:00 AM FINDINGS: Liver: There is focal hypodensity in segment 6 of the liver, similar to prior study measuring 1.8 cm. No new liver lesions. Gallbladder and bile ducts: Surgical changes post cholecystectomy with no biliary dilatation. Pancreas: Normal. No ductal dilation. Spleen: Normal. No splenomegaly. Adrenal glands: Normal. No mass. Kidneys and ureters: No right renal lesions. There is a left renal cyst measuring 4.3 cm, similar to prior. There is mild left proximal periureteral stranding fat stranding but no obstructing urinary stones, similar to prior. There is a 1 mm nonobstructing stone in the interpolar region of the right kidney. Stomach and bowel: There is mild fat stranding surrounding the terminal ileum but no collections. Appendix: No evidence of appendicitis. Intraperitoneal space: Unremarkable. No free air. No significant fluid collection. Vasculature: Similar left posterior perinephric collateral veins. Similar appearance the slit-like left renal vein. Lymph nodes: Unremarkable. No enlarged lymph nodes. Urinary bladder: Unremarkable as visualized. Reproductive: There are bilateral varicoceles, larger on the left side. Bones/joints: Unremarkable. No acute fracture. Soft tissues: Unremarkable. IMPRESSION: 1. Surgical changes of cholecystectomy with no complications. 2. Similar hypodense liver lesion in segment 6 of the liver. 3. Similar mild proximal left periureteric fat stranding with no obstructing urinary stone. 4. There is a 1 mm nonobstructing stone in the interpolar region the right kidney. 5. Limited assessment of the veins without contrast however similar appearance of collateral left posterior perinephric veins and slit-like left renal vein. 6. Mild inflammatory changes around the terminal ileum suggestive of terminal ileitis can not be infectious versus inflammatory in nature. No collections. 7. Bilateral varicoceles, more on the left. Dictated and Authenticated by: Farhad Marquis MD. Ordering:NELSON Parar MD
--- NOTE | 2023-09-06 15:55 | NUR.NOTE ---
Referral faxed to [facility] for bilateral varicoceles in 1 week. Referral [facility] for terminal ileitis in 2 weeks. Nursing Note:
[2023-09-08 13:34] LABS: Chlamydia Result Negative (Negative); GC Result Negative (Negative)
== END 2023-09-06 15:59 | disposition home or self-care (01) ==
PROVIDERS: Emergency Provider Emergency Medicine Emergency Medical Services; PCP Family Medicine
DX: N50.812 Left testicular pain (principal); M54.50 Low back pain, unspecified; K40.90 Unilateral inguinal hernia, without obstruction or gangrene, not specified as recurrent; N20.0 Calculus of kidney; I86.1 Scrotal varices
CPT/HCPCS: 36415; 80048; 87491; 87591; 96365; 99284; 74176; 81003; 85025; 99283; J0131

== ENCOUNTER 2023-11-14 06:15 | Day surgery (SDC) | payer MEDICAID, SELFPAY ==
--- NOTE | 2023-11-13 22:01 | W.PREOPHP ---
Assessment and Plan Assessment and plan (1) Left inguinal hernia: Status: Acute Assessment and plan: We reviewed the plan for an open left inguinal hernia repair today. I explained the risks and benefits of the procedures once again to Mr. Masters. He had no new questions, and I think is reasonable to proceed as planned. History of Present Illness History of Present Illness Chief Complaint: Left groin pain Narrative: Most recently, he was loading some firewood, and he noticed some pain in the left groin. He underwent a CT scan that demonstrated a left inguinal hernia as well as bilateral varicoceles, and some thickening of the terminal ileum that could represent terminal ileitis or Crohn's disease. Since that encounter, he was seen by urology, and some recommendations were made for general management of varicocele. In the interim, he has been careful with his lifting, and has generally been feeling better. He does have some occasional discomfort in the left groin. Since his last office visit, there have not been significant interval history or physical exam changes. PFSH All Active Problems Varicocele (Acute) Left inguinal hernia (Acute) Attention deficit hyperactivity disorder, predominantly inattentive type (Acute) Depression (Acute 10/06/13) 1st rx: Citalopram ad 40mg/ 2011-09/2013 sertraline 09/2013. Did not tolerate sertraline, he stopped himself. 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) wears hearing aids Hypercoagulable state (Acute) [facility] [place] Hemato/Onco: DR.Mary Obregon/ thrombosis of left renal vein/ 2019 Severe obstructive sleep apnea (Chronic) uses CPAP Tobacco dependence due to cigarettes (Acute) Medical History Hx of fracture of ankle History of drug abuse cocaine Dizziness managed with prn meclizine History of gastroscopy 01/2020 [facility] [place] / negative Tubular adenoma of colon 01/2020 [facility] [place]/ Thrombosis of left renal vein (2019) anticoagulation per [facility] [place] GERD (gastroesophageal reflux disease) Fatty liver Surgical History History of umbilical hernia repair (~2016) Status post vasectomy S/P colonoscopy (02/17/20) tubular adenoma/ [facility] [place]/ S/P cholecystectomy (~06/2018) Family History Father Diabetes Essential hypertension Mother Essential hypertension Hyperlipidemia Social History Smoking/Tobacco Use Status: Current every day Tobacco Type: cigarettes Smoking packs per day: 1 Smoking cigarettes per day: 20.0 Years smoked: 24 Smoking pack-years: 24.00 Tobacco: How many years used: 24 Quit status: has quit before Second Hand Exposure: Yes Counseling given: provider counseling Smoking risk assessment performed?: Yes Alcohol Intake: current Alcohol Intake frequency: holidays/special occasions only Alcohol type: beer and hard liquor Drug use: Occasionally Substance use type: marijuana Details: intermittent use. Last Cocaine use: 20 years ago Household members: none Housing: other Details: [place], uses a generator Number of Children: 3 Communication Needs: Cannot Read Education Level: high school Details: learning disability Do you need help understanding health information?: Often current occupation: on disability due to ADHD Current gender identity: male Do you feel safe at home: Yes Do you feel safe in your relationship?: Yes Meds Allergies and Home Medications Allergies Allergy/AdvReac Type Severity Reaction Status Date / Time cephalexin Allergy Anaphylaxis Verified 11/14/23 06:54 Home Medications Medication Instructions Recorded Confirmed Type acetaminophen 325 mg tablet 650 mg (2 x 325 mg) PO Q6H PRN PRN 06/04/18 11/14/23 Rx (Tylenol) #30 tabs omeprazole 20 mg capsule,delayed 20 mg PO DAILY #90 caps 12/12/22 11/14/23 Rx release apixaban 2.5 mg tablet (Eliquis) 2.5 mg PO BID #60 tabs 02/07/23 11/11/23 Rx divalproex 250 mg tablet,delayed 250 mg PO DAILY #90 tabs 06/04/23 11/14/23 Rx release (Depakote) rosuvastatin 20 mg tablet 20 mg PO DAILY #30 tabs 09/10/23 11/14/23 Rx Exam Const General: cooperative, healthy appearing and not in acute distress Neck Neck: normal visual inspection, no lymphadenopathy and supple Resp Effort & Inspection: normal respiratory effort Auscultation: clear to auscultation bilaterally Cardio Jugular venous pressure: no JVD Rate: regular rate Rhythm: regular rhythm Heart Sounds: S1 normal and S2 normal GI Inspection: normal to inspection Palpation: soft, no guarding, hernia (Left inguinal) and nontender Percussion: normal to percussion Auscultation: normal bowel sounds Neuro General: patient alert, patient awake and patient oriented x3 Psych Appearance: grossly normal
--- NOTE | 2023-11-13 22:03 | W.PM.OP ---
Date of service: 11/14/23 Time of Service: 09:31 Operative Note Operative Note DATE OF PROCEDURE: 11/14/23 PRE-OP DIAGNOSIS: Left inguinal hernia with varicocele Same PROCEDURE: Open left inguinal hernia repair with mesh and excision and ligation of varicocele SURGEON: Stefan Aviles ASSISTING SURGEON: Flaquito Dong AGRISCIENCE TECHNOLOGY INSTRUCTOR: Ree Echeverria ANESTHESIA TYPE: Local By Surgeon, General LMA/ETT and Other (Left inguinal tap block) Refer to Anesthesia Record ESTIMATED BLOOD LOSS: 25 PATHOLOGY: none sent COMPLICATIONS: None Patient was transported to: PACU Patient's condition: stable Implants: Bard PerFix light large plug and patch Indications: Huber is a 48-year-old male with a painful left inguinal hernia and varicocele Findings: Indirect inguinal hernia with varicocele on the left side Procedure Description: I began by confirming the correct site with the patient. General endotracheal anesthesia was then induced. Next, the anesthesia team performed a left-sided inguinal tap block using real-time ultrasound guidance. The surgical site was then prepped and draped in the usual fashion. I began by making an oblique incision over the left inguinal region. I dissected down through the skin to the deep fascia. Next, I incised the fascia along the length of the inguinal canal to the external ring. I then carefully identified the ilioinguinal nerve and sharply divided it. Once this was complete, I bluntly dissected the shelving edge of the inguinal ligament down towards the pubic tubercle. Here, I encircled all cord structures with a [place] drain. Next, I began dissecting the specific cord structures. Great care was taken to spare the vas deferens and the blood supply to the testicle. I then began isolating mobilizing the hernia sac. Towards the distal end, it was quite adherent to the varicocele. At that point, Dr. Dogn joined us in the operating room to review the anatomy. I suggested that excision and division of the varicocele at this point would allow complete mobilization of the sac and reduction back into the peritoneal cavity. This should also treat the varicocele. Therefore, I divided the venous complex between hemostats, and suture-ligated the ends. I then reduced the indirect hernia back to its normal anatomic position. I then used a large mesh PerFix light mesh plug to obliterate the defect at the internal ring. I fixed in place with interrupted Prolene stitches. Next, I buttressed the posterior floor of the inguinal canal with a large mesh patch. I started by fixing it to the pubic tubercle. Next, I used Prolene sutures to affix it to the shelving edge of the inguinal ligament and the conjoined tendon. Laterally I tacked it to the external oblique fascia and reconstructed an internal ring without any strain on the cord structures. Once this was complete, I irrigated the surgical field. It appeared hemostatic. I then closed the anterior portion of the fascia to reconstruct the front wall of the inguinal canal. I did this with interrupted Vicryl stitches. Once again, I irrigated the surgical field and inspected for hemostasis. Finally, I approximated the superficial fascia and the deep layers of the skin with absorbable suture. Skin was closed with running subcuticular stitches. Bandages were applied, the patient was awakened and transferred to the recovery unit.
--- NOTE | 2023-11-13 22:04 | W.PM.DSUDISC ---
Date of service: 11/14/23 Time of Service: 09:21 Discharge Plan Disposition Patient Disposition: Home Condition: Good Discharge Details Reason For Visit: Left inguinal hernia repair Attending Provider: Stefan Aviles Primary Care Provider: Nemo Hines Home Meds and New Rx's Prescriptions: New tramadol 50 mg tablet 50 mg PO Q8H PRNQty: 12 0RF Rx Instructions: Take 1 tablet by mouth up to every 8 hours if needed for severe pain. Continued rosuvastatin 20 mg tablet 20 mg PO DAILY Qty: 30 11RF Hold Instructions: Home Medication placed on hold at Doctor's office omeprazole 20 mg capsule,delayed release(DR/EC) 20 mg PO DAILY Qty: 90 4RF Rx Instructions: take one capsule daily divalproex [Depakote] 250 mg tablet,delayed release (DR/EC) 250 mg PO DAILY Qty: 90 3RF acetaminophen [Tylenol] 325 mg Tablet 650 mg PO Q6H PRN PRNQty: 30 0RF Held Eliquis 2.5 mg tablet 2.5 mg PO BID Qty: 60 12RF Hold Instructions: Resume on 11/15/23. Discharge Instructions Instructions: Inguinal Hernia Repair (GEN) Additional Instructions: Huber, we were able to repair your hernia today just like we talked about beforehand. And Dr. Dong was kind enough to help us in the operating room with separation and division of the varicocele. Hopefully, these procedures provide you quite a bit of relief moving forward. As you know, you did have a nerve block before the surgery to help reduce some of the postoperative pain. Do not be alarmed as this wears off over the next 24 to 48 hours. I have provided a prescription for a medication called tramadol for you to use if needed. I would like you to hold your apixaban until tomorrow afternoon. Then you can restart it as usual. Do not be alarmed if you experience some bruising around the incision site, and may be down even into your scrotum. That is very common. You may find more supportive underwear, or a jockstrap, to be helpful over the next week or 2 as the incision and surgical site heals up. Try to keep your hips and scrotum elevated whenever you are laying flat. I would like to know if you notice the skin turning bright red, or any worrisome discharge from the incision site. Please also be very careful with your lifting in the weeks to come. Keep it less than 5 pounds. you should be up and walking around though, and getting a little bit of light exercise. Hopefully you will be on the mend and I look forward to seeing you in the office on the . If you have any questions in the meantime, please do not hesitate to call at any point. 1. Resume all of your medications. 2. Use heating pads and ice packs over the incision to help with pain 3. Use [id number] Tylenol and ibuprofen. Alternate these every 6 hours for the first 2 days. Then use as needed. Use tramadol if needed for more severe pain. 4. Leave bandage in place for 24 hours, then remove. 5. Shower with warm soapy water. Pat dry. Use a bandaid if needed to protect your clothing. 6. No soaking or tub baths until I see you in the office. 7. No heavy lifting until I see you in the office. 8.Call the office (or go directly to the emergency room after hours) if you notice any of the following: Develop chills (warm to touch), or if you have a thermometer and your temperature is above 101 Difficulty breathing or difficultly swallowing Persistent vomiting Any bleeding ? exceeding one tablespoon 9. Call your physician if the site where your intravenous was started becomes red, swollen, painful, and warm to touch. Activity:: No heavy lifting Remove Dressings/Wound Care:: 24 hours Shower/Bathe:: 24 hours Diet:: As Tolerated Discharge Orders Discharge Orders: Discharge Order (Routine); Ordered 11/13/23 Ordered By: Stefan Aviles DS: Diagnosis Discharge Diagnosis (1) Left inguinal hernia: Status: Acute
[2023-11-14] VITALS (11 sets, daily range): BP systolic 100–125; BP diastolic 62–82; PULSE 56–74; RESP 11–16; TEMP 36.2–36.6; O2SAT 94–99; BMI 25.7
[2023-11-14] MEDS: Acetaminophen 500 MG TAB 1000 MG PO (06:50)
[2023-11-14] MEDS: Celecoxib 200 MG CAP PO (06:50)
[2023-11-14] MEDS: VANCOMYCIN/WATER (PEG) 1 GM/200 ML BAG IVPB (06:50)
[2023-11-14] MEDS: Gabapentin 300 MG CAP 600 MG PO (06:50)
[2023-11-14] MEDS: Lactated Ringers 1,000 ML 80 ML IV (06:50)
--- NOTE | 2023-11-14 07:02 | HPE_ITS ---
Date of service: 11/14/23 Time of Service: 07:02 Assessment and Plan Assessment and plan (1) Varicocele: Status: Acute Assessment and plan: We will perform left varicocelectomy through his inguinal incision History of Present Illness History of Present Illness Chief Complaint: Left varicocele Narrative: This is a 48 year old man who has a long standing history of varicoceles. He recently had an episode of left groin pain with lifting and straining. He was identified as having an inguinal hernia. It is not clear how much of his discomfort is related to his hernia and how much is related to his varicocele. He presents for repair of both his hernia and his varicocele through an inguinal incision. He does not have pain unless he is active. Review of Systems Narrative: No fevers or chills Decreased hearing acuity. No vision change or dysphasia No diabetes or thyroid dysfunction Sleep apnea. Smoker. No hemoptysis No chest pain or palpitations No nausea, vomiting, hepatitis, ulcers, jaundice No seizures, strokes or peripheral neuropathy No bleeding disorders or anemia No gout PFSH All Active Problems Varicocele (Acute) Left inguinal hernia (Acute) Attention deficit hyperactivity disorder, predominantly inattentive type (Acute) Depression (Acute 10/06/13) 1st rx: Citalopram ad 40mg/ 2011-09/2013 sertraline 09/2013. Did not tolerate sertraline, he stopped himself. 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 [place] Hemato/Onco: DR.Mary Obregon/ thrombosis of left renal vein/ 2019 Severe obstructive sleep apnea (Chronic) uses CPAP Tobacco dependence due to cigarettes (Acute) Medical History Hx of fracture of ankle History of drug abuse cocaine Dizziness managed with prn meclizine History of gastroscopy 01/[address] [facility] [place] / negative Tubular adenoma of colon 01/[address] [facility] [place]/ Thrombosis of left renal vein (2019) anticoagulation per [facility] [place] GERD (gastroesophageal reflux disease) Fatty liver Surgical History History of umbilical hernia repair (~2016) Status post vasectomy S/P colonoscopy (02/17/20) tubular adenoma/ [facility] [place]/ S/P cholecystectomy (~06/2018) Family History Father Diabetes Essential hypertension Mother Essential hypertension Hyperlipidemia Social History Smoking/Tobacco Use Status: Current every day Tobacco Type: cigarettes Smoking packs per day: 1 Smoking cigarettes per day: 20.0 Years smoked: 24 Smoking pack- years: 24.00 Tobacco: How many years used: 24 Quit status: has quit before Second Hand Exposure: Yes Counseling given: provider counseling Smoking risk assessment performed?: Yes Alcohol Intake: current Alcohol Intake frequency: holidays/special occasions only Alcohol type: beer and hard liquor Drug use: Occasionally Substance use type: marijuana Details: intermittent use. Last Cocaine use: 20 years ago Household members: none Housing: other Details: lives [place] the [place], uses a generator Number of Children: 3 Communication Needs: Cannot Read Education Level: high school Details: learning disability Do you need help understanding health information?: Often current occupation: on disability due to ADHD Current gender identity: male Do you feel safe at home: Yes Do you feel safe in your relationship?: Yes Meds Allergies and Home Medications Allergies Allergy/AdvReac Type Severity Reaction Status Date / Time cephalexin Allergy Anaphylaxis Verified 11/14/23 06:54 Home Medications Medication Instructions Recorded Confirmed Type acetaminophen 325 mg tablet 650 mg (2 x 325 mg) PO Q6H PRN PRN 06/04/18 11/14/23 Rx (Tylenol) #30 tabs omeprazole 20 mg capsule,delayed 20 mg PO DAILY #90 caps 12/12/22 11/14/23 Rx release apixaban 2.5 mg tablet (Eliquis) 2.5 mg PO BID #60 tabs 02/07/23 11/11/23 Rx divalproex 250 mg tablet,delayed 250 mg PO DAILY #90 tabs 06/04/23 11/14/23 Rx release (Depakote) rosuvastatin 20 mg tablet 20 mg PO DAILY #30 tabs 09/10/23 11/14/23 Rx Exam Const General: cooperative and comfortable Neck Neck: supple Resp Effort & Inspection: normal respiratory effort Auscultation: clear to auscultation bilaterally Cardio Rate: regular rate Rhythm: regular rhythm GI Palpation: soft Male General Exam: Yes other (palpable and visible left varicocele) Neuro General: patient alert, patient awake and patient oriented x3 Results Last Vital Signs Temp 36.6 C 11/14/23 06:30 Pulse 60 11/14/23 06:30 Resp 16 11/14/23 06:30 BP 125/78 11/14/23 06:30 Pulse Ox 98 11/14/23 06:30 Time Spent Time spent with Patient: <40 minutes Time was spent: other
--- NOTE | 2023-11-14 07:37 | W.ANESPRE ---
General Info Date of Service Date Performed: 11/14/23 Height: 5 ft 10 in Weight: 81.5 kg Body Mass Index (BMI): 25.7 Surgical Procedure: Operation Date: 11/14/23 07:40 Proposed Procedure Side Surgeon p Herniorrhaphy Inguinal w/Mesh Left Stefan Aviles MD s Varicocelectomy Flaquito Dong MD Meds Allergies and Home Medications Allergies Allergy/AdvReac Type Severity Reaction Status Date / Time cephalexin Allergy Anaphylaxis Verified 11/14/23 06:54 Home Medication Medication Instructions Recorded acetaminophen 325 mg tablet 650 mg (2 x 325 mg) PO Q6H PRN PRN 06/04/18 (Tylenol) #30 tabs omeprazole 20 mg capsule,delayed 20 mg PO DAILY #90 caps 12/12/22 release apixaban 2.5 mg tablet (Eliquis) 2.5 mg PO BID #60 tabs 02/07/23 divalproex 250 mg tablet,delayed 250 mg PO DAILY #90 tabs 06/04/23 release (Depakote) rosuvastatin 20 mg tablet 20 mg PO DAILY #30 tabs 09/10/23 Current Visit Medications: Current Medications Generic Name Dose Route Start Last Admin Trade Name Freq PRN Reason Stop Dose Admin Acetaminophen 1,000 mg 11/14/23 06:00 11/14/23 06:50 Acetaminophen 500 Mg Tab PO 11/14/23 16:00 1,000 mg PREOP ANNABELLA Administration Celecoxib 200 mg 11/14/23 06:00 11/14/23 06:50 Celecoxib 200 Mg Cap PO 11/14/23 16:00 200 mg PREOP ANNABELLA Administration Gabapentin 600 mg 11/14/23 06:00 11/14/23 06:50 Gabapentin 300 Mg Cap PO 11/14/23 16:00 600 mg PREOP ANNABELLA Administration Hydromorphone HCl 0.2 mg 11/13/23 22:06 Hydromorphone 2 Mg/Ml Syr IVP 12/13/23 22:05 Q1H PRN PRN Ringer's Solution 1,000 mls @ 80 mls/hr 11/14/23 06:00 11/14/23 06:50 IV 12/13/23 23:59 80 mls/hr INFUSION ANNABELLA Administration Vancomycin/PEG/NADA/Lysine/Water 1 gm in 200 mls @ 133.333 mls/hr 11/14/23 06:00 11/14/23 06:50 Vancocin Injection IVPB 11/14/23 16:00 133.333 mls/hr PREOP ANNABELLA Administration IV Miscellaneous Supplies 1 each 11/14/23 06:00 Iv Access IV 12/13/23 23:59 DIRECTED ANNABELLA Sodium Chloride 0 ml 11/14/23 06:00 Normal Saline Flush 10 Ml Syr IV 12/13/23 23:59 PRN PRN Sodium Chloride 0 ml 11/14/23 06:00 Normal Saline 10 Ml Vial IJ 12/13/23 23:59 DIRECTED PRN Sterile Water 0 ml 11/14/23 06:00 Water,Injection,Sterile 10 Ml Vial IJ 12/13/23 23:59 DIRECTED PRN Tramadol HCl 100 mg 11/13/23 22:06 Tramadol 50 Mg Tab PO 12/13/23 22:05 Q6H PRN PRN Pain PFSH Active Problems Active Problems: Problem Status Onset Code Varicocele I86.1 Left inguinal hernia K40.90 Attention deficit hyperactivity disorder, predominantly inattentive type F90.0 Depression 10/06/13 F32.9 Hyperlipidemia E78.5 BPH (benign prostatic hyperplasia) N40.0 Chronic anticoagulation Z79.01 Sensorineural hearing loss of both ears H90.3 Hypercoagulable state D68.59 Severe obstructive sleep apnea G47.33 Tobacco dependence due to cigarettes F17.210 Medical History Medical History Hx of fracture of ankle History of drug abuse cocaine Dizziness managed with prn meclizine History of gastroscopy 01/2020 [facility] [place] / negative Tubular adenoma of colon 01/2020 [facility] [place]/ Thrombosis of left renal vein (2019) anticoagulation per [facility] GERD (gastroesophageal reflux disease) Fatty liver Surgical History Surgical History History of umbilical hernia repair (~2016) Status post vasectomy S/P colonoscopy (02/17/20) tubular adenoma/ [facility] [place]/ S/P cholecystectomy (~06/2018) Tobacco Smoking/Tobacco Use Status: Current every day Tobacco Type: cigarettes Smoking packs per day: 1 Smoking cigarettes per day: 20.0 Years smoked: 24 Smoking pack-years: 24.00 Passive smoking exposure: Yes Second hand exposure: Yes Counseling given: provider counseling Alcohol Alcohol Intake: current Alcohol intake frequency: holidays/special occasions only Alcohol type: beer and hard liquor Substance Use Substance use: Occasionally Substance use type: marijuana Details: intermittent use. Last Cocaine use: 20 years ago Vital Signs and Lab Results Vital Signs Most Recent Vital Signs in EMR: Most Recent Vital Signs Temp Pulse Resp BP Pulse Ox 36.6 C 60 16 125/78 98 11/14/23 06:30 11/14/23 06:30 11/14/23 06:30 11/14/23 06:30 11/14/23 06:30 Lab Results Blood Type / Crossmatch: No Data to Display Complete Blood Count: No Data to Display Complete Metabolic Panel: No Data to Display Liver Function Panel: No Data to Display Coagulation Panel: No Data to Display Cardiac Panel: No Data to Display Arterial Blood Gas: No Data to Display Venous Blood Gas: No Data to Display Pancreas Panel: No Data to Display Thyroid Panel: No Data to Display Infectious Disease: No Data to Display Blood Cultures: No Data to Display Toxicology Panel: No Data to Display Imaging and Studies Imaging and Studies Study information below may be from another EMR and interpreted by another provider. Please see original notes in EMR for more complete details. EKG Summary: 05/2021 Conclusion Sinus rhythm...normal P axis, V-rate 60- 99 Incomplete right bundle branch block...QRSd >112, terminal axis(90,270) Anesthesia Assessment and Plan Anesthesia History Personal History: No History of Anesthesia Complications Family History: No Family History of Anesthesia Complications Exercise Tolerance Exercise Tolerance: Metabolic Equivalents>4 Pertinent Negatives Pertinent Negatives: No Major Cardiovascular Symptoms or Complaints, No Major Pulmonary Symptoms or Complaints and No History of CVA/TIA Cardiac & Pulmonary Exam Cardiac Exam: Normal S1/S2 Heart Sounds Pulmonary Exam: Clear Bilateral Breath Sounds Implantable Cardiac Device Does patient have a Pacemaker or an ICD?: No Airway Exam Known Difficult Airway: No Mallampati Class: 3 Mouth Opening: Normal (> 3cm) Thyromental Distance: Greater than 3 cm Neck Range of Motion: Full ROM Neck Circumference: Normal Teeth Condition: Normal Dentition ASA Classification ASA Score: ASA 2 Emergency Case?: No NPO Status NPO Status: NPO Clears >2 hours, Solids >8 hours Anesthesia Plan Resuscitation Status: Full Code Anesthesia Technique: General Anesthesia Airway Planned: Endotracheal Tube Pain Management: Surgeon and patient request nerve block Monitors Used: Standard Monitors and SedLine Preoperative Comments:: pt reports medication controlled reflux; pt reports he did not take his medication for reflux last night but has no s/s this morning
--- NOTE | 2023-11-14 08:38 | W.ANESPRE ---
General Info Height: 5 ft 10 in Weight: 81.5 kg Body Mass Index (BMI): 25.7 Surgical Procedure: Operation Date: 11/14/23 07:40 Proposed Procedure Side Surgeon p Herniorrhaphy Inguinal w/Mesh Left Stefan Aviles MD s Varicocelectomy Flaquito Dong MD Actual Procedure Side Surgeon p Herniorrhaphy Inguinal w/Mesh Left Stefan Aviles MD s Varicocelectomy Left Flaquito Dong MD Pre-Op Diagnosis Post-Op Diagnosis Left inguinal hernia and Varicocele Left inguinal hernia and Varicocele Meds Allergies and Home Medications Allergies Allergy/AdvReac Type Severity Reaction Status Date / Time cephalexin Allergy Anaphylaxis Verified 11/14/23 06:54 Home Medication Medication Instructions Recorded acetaminophen 325 mg tablet 650 mg (2 x 325 mg) PO Q6H PRN PRN 06/04/18 (Tylenol) #30 tabs omeprazole 20 mg capsule,delayed 20 mg PO DAILY #90 caps 12/12/22 release apixaban 2.5 mg tablet (Eliquis) 2.5 mg PO BID #60 tabs 02/07/23 divalproex 250 mg tablet,delayed 250 mg PO DAILY #90 tabs 06/04/23 release (Depakote) rosuvastatin 20 mg tablet 20 mg PO DAILY #30 tabs 09/10/23 Current Visit Medications: Current Medications Generic Name Dose Route Start Last Admin Trade Name Freq PRN Reason Stop Dose Admin Acetaminophen 1,000 mg 11/14/23 06:00 11/14/23 06:50 Acetaminophen 500 Mg Tab PO 11/14/23 16:00 1,000 mg PREOP ANNABELLA Administration Celecoxib 200 mg 11/14/23 06:00 11/14/23 06:50 Celecoxib 200 Mg Cap PO 11/14/23 16:00 200 mg PREOP ANNABELLA Administration Gabapentin 600 mg 11/14/23 06:00 11/14/23 06:50 Gabapentin 300 Mg Cap PO 11/14/23 16:00 600 mg PREOP ANNABELLA Administration Hydromorphone HCl 0.2 mg 11/13/23 22:06 Hydromorphone 2 Mg/Ml Syr IVP 12/13/23 22:05 Q1H PRN PRN Ringer's Solution 1,000 mls @ 80 mls/hr 11/14/23 06:00 11/14/23 06:50 IV 12/13/23 23:59 80 mls/hr INFUSION ANNABELLA Administration Vancomycin/PEG/NADA/Lysine/Water 1 gm in 200 mls @ 133.333 mls/hr 11/14/23 06:00 11/14/23 08:33 Vancocin Injection IVPB 11/14/23 16:00 Infused PREOP ANNABELLA Infusion IV Miscellaneous Supplies 1 each 11/14/23 06:00 Iv Access IV 12/13/23 23:59 DIRECTED ANNABELLA Sodium Chloride 0 ml 11/14/23 06:00 Normal Saline Flush 10 Ml Syr IV 12/13/23 23:59 PRN PRN Sodium Chloride 0 ml 11/14/23 06:00 Normal Saline 10 Ml Vial IJ 12/13/23 23:59 DIRECTED PRN Sterile Water 0 ml 11/14/23 06:00 Water,Injection,Sterile 10 Ml Vial IJ 12/13/23 23:59 DIRECTED PRN Tramadol HCl 100 mg 11/13/23 22:06 Tramadol 50 Mg Tab PO 12/13/23 22:05 Q6H PRN PRN Pain PFSH Active Problems Active Problems: Problem Status Onset Code Varicocele I86.1 Left inguinal hernia K40.90 Attention deficit hyperactivity disorder, predominantly inattentive type F90.0 Depression 10/06/13 F32.9 Hyperlipidemia E78.5 BPH (benign prostatic hyperplasia) N40.0 Chronic anticoagulation Z79.01 Sensorineural hearing loss of both ears H90.3 Hypercoagulable state D68.59 Severe obstructive sleep apnea G47.33 Tobacco dependence due to cigarettes F17.210 Medical History Medical History Hx of fracture of ankle History of drug abuse cocaine Dizziness managed with prn meclizine History of gastroscopy 01/2020 [facility] / negative Tubular adenoma of colon 01/2020 [facility]/ Thrombosis of left renal vein (2019) anticoagulation per [facility] GERD (gastroesophageal reflux disease) Fatty liver Surgical History Surgical History History of umbilical hernia repair (~2016) Status post vasectomy S/P colonoscopy (02/17/20) tubular adenoma/ [facility]/ S/P cholecystectomy (~06/2018) Tobacco Smoking/Tobacco Use Status: Current every day Tobacco Type: cigarettes Smoking packs per day: 1 Smoking cigarettes per day: 20.0 Years smoked: 24 Smoking pack-years: 24.00 Passive smoking exposure: Yes Second hand exposure: Yes Counseling given: provider counseling Alcohol Alcohol Intake: current Alcohol intake frequency: holidays/special occasions only Alcohol type: beer and hard liquor Substance Use Substance use: Occasionally Substance use type: marijuana Details: intermittent use. Last Cocaine use: 20 years ago Vital Signs and Lab Results Vital Signs Most Recent Vital Signs in EMR: Most Recent Vital Signs Temp Pulse Resp BP Pulse Ox 36.6 C 60 16 125/78 98 11/14/23 06:30 11/14/23 06:30 11/14/23 06:30 11/14/23 06:30 11/14/23 06:30 Lab Results Blood Type / Crossmatch: No Data to Display Complete Blood Count: No Data to Display Complete Metabolic Panel: No Data to Display Liver Function Panel: No Data to Display Coagulation Panel: No Data to Display Cardiac Panel: No Data to Display Arterial Blood Gas: No Data to Display Venous Blood Gas: No Data to Display Pancreas Panel: No Data to Display Thyroid Panel: No Data to Display Infectious Disease: No Data to Display Blood Cultures: No Data to Display Toxicology Panel: No Data to Display Imaging and Studies Imaging and Studies Study information below may be from another EMR and interpreted by another provider. Please see original notes in EMR for more complete details. EKG Summary: 05/2021 Conclusion Sinus rhythm...normal P axis, V-rate 60- 99 Incomplete right bundle branch block...QRSd >112, terminal axis(90,270) Anesthesia Assessment and Plan Anesthesia History Personal History: No History of Anesthesia Complications Family History: No Family History of Anesthesia Complications Exercise Tolerance Exercise Tolerance: Metabolic Equivalents>4 Implantable Cardiac Device Does patient have a Pacemaker or an ICD?: No Airway Exam Known Difficult Airway: No Mallampati Class: 3 Mouth Opening: Normal (> 3cm) Thyromental Distance: Greater than 3 cm Neck Range of Motion: Full ROM Neck Circumference: Normal Teeth Condition: Normal Dentition
--- NOTE | 2023-11-14 08:40 | W.ANESNERVE ---
Nerve Block Single Injection Procedure Date and Time Date Performed: 11/14/23 Procedure Start: 07:50 Location Where Procedure Performed Procedure Location: Operating Room Procedure Stop: 08:07 Reason Performed: Postoperative Analgesia Requesting Provider: Stefan Aviles Timeout Performed Timeout Performed: Yes Monitoring Used ECG, Blood Pressure, SpO2, ETCO2 and See EMR for corresponding vital signs Sterility Sterility: Hand Hygiene, Surgical Cap, Surgical Mask, Sterile Gloves and Chlorhexidine Sedation Given During Procedure Sedation Given (Indicate Dose Given): No Sedation given Patient Mental Status Patient Mental Status: Performed under general anesthesia Nerve Block 1st Nerve Block: Laterality: Left Block Type: TAP Unilateral Ultrasound Image Saved?: Yes Needle / Catheter Used: 100mm SonoPlex II Local Anesthetic Bolus (Indicate Dose Given): Bupivacaine 0.25% Dose:: 10mL and Exparel Dose:: 10mL Additives (Indicate Dose Given): None Ultrasound: Sterile probe cover and gel used Nerve Stimulator: Not Used Paresthesia: None Procedure Tolerated: No Complications and Patient tolerated well Procedure Outcome: Successful Performed By: Claudia Rhodes Supervised By: Darren Marshall
--- NOTE | 2023-11-14 08:57 | W.PM.OP ---
Date of service: 11/14/23 Time of Service: 08:57 Operative Note Operative Note DATE OF PROCEDURE: 11/14/23 PRE-OP DIAGNOSIS: left varicocele POST-OP DIAGNOSIS: same PROCEDURE: left varicocelectomy SURGEON: Stefan Aviles ASSISTING SURGEON: Flaqiuto Dong ANESTHESIA TYPE: Local By Surgeon, General LMA/ETT and Other (Left inguinal tap block) Refer to Anesthesia Record ESTIMATED BLOOD LOSS: 5 PATHOLOGY: none sent COMPLICATIONS: None Patient was transported to: PACU Indications: This is a 48-year-old gentleman who has a long history of varicoceles. He recently had an episode of left groin pain when he was quite active and lifting heavy equipment. On evaluation, in addition to the varicocele he was found to have a left inguinal hernia. He presents for left inguinal herniorrhaphy. He is agreeable to a varicocelectomy at the same time Procedure Description: The patient was given preoperative IV antibiotics and brought to the operating room on 11/14/2023. After successful induction of general anesthesia, he was placed in the supine position. The left inguinal incision and exposure of the left spermatic cord was performed by Dr. Aviles and his surgical team. After the cord structures had been , I was asked to step into the operating room for evaluation. The vas deferens had been dissected away from the remainder of the cord structures. There appeared to be some fatty tissue in the cord that contained multiple dilated veins in addition to a possible hernia sac. The plan for the hernia repair was to divide and transect the fatty tissue that contained the venous structures and the hernia sac. It was my opinion that doing so would adequately treat the varicocele, so no additional dissection was performed by me. The hernia repair was then resumed by Dr. Aviles and his surgical team.
[2023-11-14] MEDS: fentaNYL 100 MCG/2 ML VIAL IVP (10:25)
[2023-11-14] MEDS: traMADol 50 MG TAB 100 MG PO (11:07)
--- NOTE | 2023-11-14 13:31 | W.ANESPOSTOP ---
Postoperative Evaluation Date, Time and Location Date Performed: 11/14/23 Time Performed: 12:00 Patient Location: Day Surgery Unit Vital Signs Most Recent Imported Vital Signs: Most Recent Vital Signs Temp Pulse Resp BP Pulse Ox 36.4 C L 57 L 16 101/77 95 11/14/23 11:08 11/14/23 11:08 11/14/23 11:08 11/14/23 11:08 11/14/23 11:08 Pain Score Most Recent Pain Score: Most Recent Pain Score Pain Level 8 11/14/23 11:08 Assessment Mental Status: Awake (Alert & Oriented to Patient Baseline) Airway and Respiratory Function: Patent airway with normal (patient baseline) respiratory exam Cardiovascular Function: Hemodynamically Stable Hydration Status: Adequately Hydrated Nausea & Vomiting: No Nausea or Vomiting Pain: Pain is tolerable per patient (Per patient pain is tolerable and appropriate right now. Wants to go home) Peripheral Nerve Block: Patient did not receive a nerve block
== END 2023-11-14 12:02 | disposition home or self-care (01) ==
LOC: SUR 06:15
PROVIDERS: Urology; PCP Family Medicine; Visit Provider Surgery
PROC: (CPT 55540; principal; 2023-11-14 07:30)
DX: K40.90 Unilateral inguinal hernia, without obstruction or gangrene, not specified as recurrent; I86.1 Scrotal varices; N40.0 Benign prostatic hyperplasia without lower urinary tract symptoms; E78.5 Hyperlipidemia, unspecified; G47.33 Obstructive sleep apnea (adult) (pediatric); F17.210 Nicotine dependence, cigarettes, uncomplicated
CPT/HCPCS: 55540; 76942; C1781; C9290; J0665; J1100; J2001; J2250; J2371; J2405; J2704; J3010; J3372; J3475

== ENCOUNTER 2023-11-20 10:08 | Emergency (ER) | payer MEDICAID, SELFPAY ==
[2023-11-20 10:15] VITALS: BP 119/73; PULSE 104; RESP 15; TEMP 37.1; O2SAT 99
[2023-11-20 10:24] VITALS: BP 119/73; PULSE 104; RESP 15; TEMP 37.1; O2SAT 99
--- NOTE | 2023-11-20 10:33 | W.ED.GENAD ---
Discharge Plan Disposition Patient Disposition: Home Condition: Stable Discharge Details Clinical Impression: Swelling around both eyes Primary Care Provider: Nemo Hines ED Provider: Rip Cheek Home Meds and New Rx's Prescriptions: New prednisone 20 mg tablet 60 mg PO DAILY 4 Days Qty: 12 0RF Continued omeprazole 20 mg capsule,delayed release(DR/EC) 20 mg PO DAILY Qty: 90 4RF Rx Instructions: take one capsule daily Eliquis 2.5 mg tablet 2.5 mg PO BID Qty: 60 12RF Hold Instructions: Resume on 11/15/23. divalproex [Depakote] 250 mg tablet,delayed release (DR/EC) 250 mg PO DAILY Qty: 90 3RF acetaminophen [Tylenol] 325 mg Tablet 650 mg PO Q6H PRN PRNQty: 30 0RF Discontinued rosuvastatin 20 mg tablet 20 mg PO DAILY Qty: 30 11RF Hold Instructions: Pt Stopped/Never Started Discharge Instructions Additional Instructions: You are likely suffering from a local skin allergy to either something in the environment or a new detergent or soap. Follow-up with your primary care provider within 1 week if not improving You can also take fdqw-but-nhtdykr remedies such as Claritin or Zyrtec and Benadryl as needed If you feel more ill, have severe pain or high fevers return to the emergency department for reevaluation HPI General Mode of arrival: ambulatory. Date/Time Provider Initiated Documentation: 11/20/23 10:11. Limitations to Documentation: no limitations. Information obtained by: patient. History of Present Illness 48 year old M presents to the emergency department with the chief complaint of swelling around eyes, described as moderate, Patient started experiencing this day(s) (1) and it has been constant. No relieving factors improve symptom(s), No exacerbating factors reported . Patient notes no other symptoms.; denies fever/chills. Patient did receive the following treatments prior to arrival, none Related Data Home Medications Medication Instructions Recorded Confirmed acetaminophen 325 mg tablet 650 mg (2 x 325 mg) PO Q6H PRN PRN 06/04/18 11/20/23 (Tylenol) #30 tabs omeprazole 20 mg capsule,delayed 20 mg PO DAILY #90 caps 12/12/22 11/20/23 release apixaban 2.5 mg tablet (Eliquis) 2.5 mg PO BID #60 tabs 02/07/23 11/20/23 divalproex 250 mg tablet,delayed 250 mg PO DAILY #90 tabs 06/04/23 11/20/23 release (Depakote) prednisone 20 mg tablet 60 mg (3 x 20 mg) PO DAILY 4 days 11/20/23 #12 tabs Previous Rx's Medication Instructions Recorded acetaminophen 325 mg tablet 650 mg (2 x 325 mg) PO Q6H PRN PRN 06/04/18 (Tylenol) #30 tabs omeprazole 20 mg capsule,delayed 20 mg PO DAILY #90 caps 12/12/22 release apixaban 2.5 mg tablet (Eliquis) 2.5 mg PO BID #60 tabs 02/07/23 divalproex 250 mg tablet,delayed 250 mg PO DAILY #90 tabs 06/04/23 release (Depakote) prednisone 20 mg tablet 60 mg (3 x 20 mg) PO DAILY 4 days 11/20/23 #12 tabs Allergies Allergy/AdvReac Type Severity Reaction Status Date / Time cephalexin Allergy Anaphylaxis Verified 11/20/23 10:20 General Stated Complaint: FacialProb DARI: 4 Review of Systems All systems reviewed & are unremarkable except as noted in HPI and below Constitutional Constitutional: Denies chills, Denies fever(s) and Denies weakness Eyes Eyes: Denies loss of vision Cardiovascular Cardiovascular: Denies chest pain and Denies dyspnea Respiratory Respiratory: Denies cough and Denies dyspnea Gastrointestinal Gastrointestinal: Denies abdominal pain, Denies nausea and Denies vomiting Genitourinary Genitourinary: Denies dysuria Neurologic Neurologic: Denies loss of vision and Denies weakness Exam Const General: no acute distress Orientation: alert [facility] Head: normal to inspection Ears: external ears normal General nose exam: external nose normal Mouth: moist mucous membranes Eyes Alignment and Position: alignment normal Conjunctivae: conjunctivae normal Sclera: sclerae normal Cornea: corneas normal Pupils: PERRL EOM: EOM intact bilaterally Neck Neck: normal visual inspection Resp Effort & Inspection: normal respiratory effort and able to speak in complete sentences Cardio Rate: regular rate Skin General skin exam: no rashes or lesions noted Neuro General: patient alert and patient oriented x3 Extrem General: normal to inspection Psych Mental Status: mental status grossly normal Course Vital Signs Vital signs: Vital Signs Temperature 37.1 C 11/20/23 10:15 Pulse 104 H 11/20/23 10:15 Respiratory Rate 15 11/20/23 10:15 Blood Pressure 119/73 11/20/23 10:15 Pulse Oximetry 99 11/20/23 10:15 Temperature 37.1 C 11/20/23 10:24 Temperature Source Oral 11/20/23 10:24 Pulse 104 H 11/20/23 10:24 Respiratory Rate 15 11/20/23 10:24 Respiratory Effort Normal 11/20/23 10:24 Blood Pressure 119/73 11/20/23 10:24 Blood Pressure Position Sitting 11/20/23 10:24 Pulse Oximetry 99 11/20/23 10:24 Oxygen Delivery Method Room Air 11/20/23 10:24 Oxygen Flow Rate 0 11/20/23 10:15 Medical Decision Making 48-year-old male comes in with complaints of feeling itching and swelling around both eyes. Patient states last night he noticed some itching under his eyes but then woke up and with swelling around both eyes. Denies any pain or itching in the eyes, he does have mild periorbital swelling without any erythema, no warmth, the eyes themselves appear normal, he has full range of motion of the eyes with no restricted eye movements and no pain in the eye. He otherwise feels well, he is staying in a new living area so suspect he is having some type of contact dermatitis given the itching and swelling without evidence of infection. Will start him on prednisone advised to use Claritin and Benadryl, advised to follow-up with his primary care provider within 1 week and return precautions given. Given lack of erythema at all on exam do not feel any antibiotics indicated at this time. Differential Diagnosis Differential Diagnosis: Contact dermatitis, periorbital cellulitis Quality:SDOH Health Related Social Needs: No Data to Display PFSH All Active Problems (Updated 11/20/23 @ 10:34 by Rip Cheek MD) Swelling around both eyes (Acute) Varicocele (Acute) Left inguinal hernia (Acute) Attention deficit hyperactivity disorder, predominantly inattentive type (Acute) Depression (Acute 10/06/13) 1st rx: Citalopram ad 40mg/ 2011-09/2013 sertraline 09/2013. Did not tolerate sertraline, he stopped himself. 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) wears hearing aids Hypercoagulable state (Acute) [facility] Hemato/Onco: DR.Mary Obregon/ thrombosis of left renal vein/ 2019 Severe obstructive sleep apnea (Chronic) uses CPAP Tobacco dependence due to cigarettes (Acute) Medical History (Updated 11/20/23 @ 10:34 by Rip Cheek MD) Hx of fracture of ankle History of drug abuse cocaine Dizziness managed with prn meclizine History of gastroscopy 01/2020 [facility] / negative Tubular adenoma of colon 01/2020 [facility]/ Thrombosis of left renal vein (2019) anticoagulation per [facility] GERD (gastroesophageal reflux disease) Fatty liver Surgical History (Updated 11/14/23 @ 14:29 by Lissy Blair) Hx of inguinal hernia repair (~11/14/23) Left side History of umbilical hernia repair (~2016) Status post vasectomy S/P colonoscopy (02/17/20) tubular adenoma/ [facility]/ S/P cholecystectomy (~06/2018) Family History Father Diabetes Essential hypertension Mother Essential hypertension Hyperlipidemia Social History Smoking/Tobacco Use Status: Current every day Tobacco Type: cigarettes Smoking packs per day: 1 Smoking cigarettes per day: 20.0 Years smoked: 24 Smoking pack-years: 24.00 Tobacco: How many years used: 24 Quit status: has quit before Second Hand Exposure: Yes Counseling given: provider counseling Smoking risk assessment performed?: Yes Alcohol Intake: current Alcohol Intake frequency: holidays/special occasions only Alcohol type: beer and hard liquor Drug use: Daily Substance use type: marijuana Details: intermittent use. Household members: none Housing: other [place], [place] generator Number of Children: 3 Communication Needs: Cannot Read Education Level: high school Details: learning disability Do you need help understanding health information?: Often current occupation: on disability due to ADHD Current gender identity: male Do you feel safe at home: Yes Do you feel safe in your relationship?: Yes PAWSS Have you Been Recently Intoxicated or Drunk Within the Last 30 days?: No Have you Ever Experienced Previous Episodes of Alcohol Withdrawal?: No Have you ever Experienced Withdrawal Seizures?: No Have you ever Experienced Delirium Tremens(DT)s?: No Have you ever undergone Alcohol Rehabilitation Treatment (i.e, inpt ot outpatient treatment programs)?: No Have you ever Experienced Blackouts?: No Have you ever Combined Alcohol with other Downers within the last 90 days?: No Have you ever Combined Alcohol with any other Substance of Abuse during the last 90 days?: No Positive Blood Alcohol level on Presentation? [PCS.BAL]: No Evidence of Increased Autonomic Activity (i.e. HR>120, tremor, sweating, agitation, nausea)?: No Result: 0
[2023-11-20] MEDS: predniSONE 20 MG TAB 60 MG PO (10:36)
== END 2023-11-20 11:04 | disposition home or self-care (01) ==
PROVIDERS: Emergency Provider Emergency Medicine; PCP Family Medicine
DX: R22.0 Localized swelling, mass and lump, head (principal); R21 Rash and other nonspecific skin eruption; E78.5 Hyperlipidemia, unspecified; F17.290 Nicotine dependence, other tobacco product, uncomplicated; Z79.01 Long term (current) use of anticoagulants
CPT/HCPCS: 99283; J7512

== ENCOUNTER 2024-05-24 07:27 | Outpatient (CLI) | payer MEDICAID, SELFPAY | END 2024-05-24 07:28 | disposition home or self-care (01) | LOC: LBO 07:27 | PROVIDERS: PCP Family Medicine; Visit Provider Family Medicine | DX: E78.5 Hyperlipidemia, unspecified (principal) | CPT/HCPCS: 36415; 80061; 82172; 82664 ==

== ENCOUNTER 2024-06-08 08:54 | Outpatient (CLI) | payer MEDICAID, SELFPAY ==
[2024-06-11 15:40] LABS: Apolipoprotein B, Serum 127 mg/dL; Beta VLDL Cholesterol Not Detected mg/dL (<15); Beta VLDL Triglycerides Not Detected mg/dL (<15); Cholesterol, Total, CDC 257 mg/dL; Chylomicron Cholesterol Not Detected; Chylomicron Triglycerides Not Detected; HDL Cholesterol, CDC 50 mg/dL (>=40); LDL Cholesterol 162 mg/dL; LDL Triglycerides 41 mg/dL (<=50); Lp(a) Cholesterol 20 mg/dL (<5); LpX Not detected; Triglycerides, CDC 127 mg/dL; VLDL Cholesterol 25 mg/dL (<30); VLDL Triglycerides 74 mg/dL (<120)
== END 2024-06-08 08:55 | disposition home or self-care (01) ==
LOC: LBO 08:56
PROVIDERS: PCP Family Medicine; Visit Provider Family Medicine
DX: E78.5 Hyperlipidemia, unspecified (principal)
CPT/HCPCS: 80061; 82172; 82664

== ENCOUNTER 2025-02-24 08:07 | Outpatient (CLI) | payer MEDICAID, SELFPAY ==
[2025-02-28 17:01] LABS: Apolipoprotein B, Serum 81 mg/dL; Beta VLDL Cholesterol Not Detected mg/dL (<15); Beta VLDL Triglycerides Not Detected mg/dL (<15); Cholesterol, Total, CDC 186 mg/dL; Chylomicron Cholesterol Not Detected; Chylomicron Triglycerides Not Detected; HDL Cholesterol, CDC 57 mg/dL (>=40); LDL Cholesterol 83 mg/dL; LDL Triglycerides 31 mg/dL (<=50); Lp(a) Cholesterol 15 mg/dL (<5); LpX Not detected; Triglycerides, CDC 125 mg/dL; VLDL Cholesterol 31 mg/dL (<30); VLDL Triglycerides 80 mg/dL (<120)
== END 2025-02-24 08:08 | disposition home or self-care (01) ==
LOC: LBO 08:08
PROVIDERS: PCP Family Medicine; Visit Provider Family Medicine
DX: E78.00 Pure hypercholesterolemia, unspecified (principal)
CPT/HCPCS: 36415; 80061; 82172; 82664